=== PATIENT | female | born 1980 | race Caucasian/White ===

== ENCOUNTER 2024-05-12 04:21 | Observation (INO) | payer MEDICAID, SELFPAY ==
[2024-05-12] VITALS (11 sets, daily range): BP systolic 108–170; BP diastolic 72–129; PULSE 79–106; RESP 18–33; TEMP 36.1–36.5; O2SAT 94–100; BMI 49.9; BMI 49.7
--- NOTE | 2024-05-12 04:27 | EKG_ITS ---
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
--- NOTE | 2024-05-12 04:27 | XR_ITS ---
Examination: AP chest single view Technique one AP portable upright chest single view Exam date and time: May 12, 2024 0444 hrs. Comparison March 23, 2020 Indications: Chest pain today. Findings: Normal heart size No pneumonia or pulmonary edema The osseous structures are intact Impression: No active disease
[2024-05-12 04:48] LABS: Lactate (Lactic Acid) 2.2 mMol/L (0.4-2.0)
[2024-05-12 04:49] LABS: Base Excess 3 (-3-3); HCO3 29 mEq/L (20-26); Inspired Oxygen, FIO2 21 %; O2 Saturation 91 % (91-98); PCO2 49 mmHg (32.0-48.0); PO2 61 mmHg (83-108); pH, Arterial 7.38 (7.35-7.45)
[2024-05-12 04:52] LABS: Allen Test Performed/OK; Puncture Site Right Radial
[2024-05-12 04:54] LABS: Basophils % (Auto) 0 % (0-2.5); Eosinophils # (Auto) 0.1 Thou/mm3 (0.0-0.5); Eosinophils % (Auto) 1 % (0-10); Hematocrit 41.7 % (36.0-46.0); Hemoglobin 13.9 g/dL (12.0-16.0); Immature Granulocytes % (Auto) 0 % (0-0); Immature Granulocytes Auto 0.02 Thou/mm3 (0.00-0.00); Lymphocytes # (Auto) 3.2 Thou/mm3 (1.0-4.8); Lymphocytes % (Auto) 30 % (10-50); Mean Corpuscular HGB Conc 33.3 g/dl (31.0-37.0); Mean Corpuscular Hemoglobin 27.4 pg (25.0-35.0); Mean Corpuscular Volume 82 fL (80-100); Monocytes # (Auto) 0.6 Thou/mm3 (0.0-0.8); Monocytes % (Auto) 6 % (0-12); Neutrophils # (Auto) 6.7 Thou/mm3 (1.8-7.7); Neutrophils % (Auto) 63 % (37-80); Nucleated Red Blood Cell % 0 /100 WBC (0); Platelet Count 352 Thou/mm3 (140-440); RDW Standard Deviation 43.1 fL (36.4-46.3); Red Blood Count 5.08 Miln/mm3 (4.00-5.20); White Blood Count 10.7 Thou/mm3 (3.6-11.0)
[2024-05-12] MEDS: SODIUM CHLORIDE 0.9% 1000 ML 1,000 ML 999 ML IV ×2 (05:04→05:05)
[2024-05-12] MEDS: INSULIN HUM REGULAR 1 UNIT/0.01 ML (PER UNIT) 10 UNIT IV ×2 (05:07→05:44)
[2024-05-12 05:13] LABS: B-Type Natriuretic Peptide < 20 pg/mL (0-100)
[2024-05-12 05:25] LABS: INR 1.1 (0.9-1.3); Partial Thromboplastin Time 25.6 Seconds (22.0-36.0); Prothrombin Time 11.6 Seconds (9.0-12.2)
[2024-05-12 05:27] LABS: Alanine Aminotransferase 19 U/L (10-49); Albumin, Serum 4.6 gm/dL (3.5-5.0); Albumin/Globulin Ratio 1.1 (1.2-2.2); Alkaline Phosphatase 179 U/L (46-116); Anion Gap 9 (7-16); Aspartate Amino Transferase 13 U/L (0-34); BUN/Creatinine Ratio 12 Ratio (12-20); Bilirubin,Total 0.3 mg/dL (0.3-1.2); Blood Urea Nitrogen 16 mg/dL (9-23); Calcium 10.3 mg/dL (8.3-10.6); Calcium (Corrected) 10.3 mg/dL (8.5-10.1); Carbon Dioxide 26.4 mMol/L (20.0-31.0); Chloride 95 mMol/L (98-107); Creatinine (Component) 1.3 mg/dL (0.6-1.3); Globulin 4.2 gm/dL (2.3-3.5); Lipase 37 U/L (12-53); Magnesium 1.8 mg/dL (1.6-2.6); Osmolality,Calculated 287 (275-295); Potassium 3.8 mMol/L (3.4-5.1); Procalcitonin < 0.04 ng/ml (0.0-0.49); Sodium 130 mMol/L (136-145); Total Protein 8.8 gm/dL (5.7-8.2); Troponin I < 0.020 ng/mL (0.0-0.045); eGFR 52 See Note
[2024-05-12 05:28] LABS: Glucose 544 mg/dL (74-106)
--- NOTE | 2024-05-12 05:48 | XR_ITS ---
Examination: CT brain head without contrast. 2-D sagittal coronal reconstructions Date and time of exam:May 12, 2024 at 0635 hrs. Indications: Altered mental status anxiety today methamphetamine usage today and 2 days ago CTDI: vol (mGy):57.6 DLP: (mGycm):1137 Technique: Multiple CT axial sections of the brain have been obtained, 5 mm slice thickness. Contrast has not been administered. 2-D sagittal, coronal reconstructions have been obtained Low dose protocols were performed. One or more of the following dose reduction techniques were used; automated exposure control, adjustment of the mA and/or KV according to patient size, use of iterative reconstruction technique. Findings: No significant ventricular enlargement. Intra-axial or extra-axial hemorrhage density is not seen. No mass effect or midline shift Basal cisterns are not remarkable. Fourth ventricle is midline. Cranial vault intact. Impression: Negative for acute hemorrhage, mass effect or midline shift Advise clinical correlation follow-up accordingly
--- NOTE | 2024-05-12 05:49 | EDNOTE_ITS ---
ED General RME/HPI General Chief complaint: General Adult/Misc Complain Stated complaint: HIGH BS Time Seen by Provider: 05/12/24 04:27 Source: patient and EMS Arrival date/time: 05/12/24 04:21 Mode of arrival: EMS Limitations: no limitations RME / HPI RME / HPI narrative: DR BUSTILLO MAIN ED EVALUATION: 43-year-old female with h/o type 2 IDDM presents to the emergency department via ambulance who concerns of hyperglycemia and difficult to control blood glucose. Also c/o dizziness and feeling unwell. Related Data Home Medications ?Medication ?Instructions ?Recorded ?Confirmed atorvastatin 20 mg tablet 20 mg PO QDAY 05/12/24 05/12/24 lisinopril 20 mg tablet 20 mg PO QDAY 05/12/24 05/12/24 Previous Rx's ?Medication ?Instructions ?Recorded blood sugar diagnostic (Blood #100 ea 04/19/20 Glucose Test strips) blood-glucose meter (Blood Glucose #1 ea 04/19/20 Monitoring kit) lancets 30 gauge (BD Ultra-Fine II #100 ea 04/19/20 Lancets) pen needle, diabetic 31 gauge x #50 ea 04/19/20 1/ (Microdot Insulin Pen Needle) glucagon 3 mg/actuation nasal 3 mg intranasal QDAY PRN 05/13/24 spray (Baqsimi) hypoglycemia #2 ea insulin degludec 100 unit/mL (3 120 unit (1.2 mL) subcut HS #15 mL 05/13/24 mL) subcutaneous pen (Tresiba FlexTouch U-100 insulin) insulin lispro 100 unit/mL 40 unit (0.4 mL) subcut TID #15 mL 05/13/24 subcutaneous pen (Admelog SoloStar U-100 Insulin lispro) Allergies Allergy/AdvReac Type Severity Reaction Status Date / Time No Known Allergies Allergy Verified 04/15/20 17:43 Review of Systems Review of Systems Systems Reviewed: All systems reviewed, normal except as documented Past Medical History Past Medical History NEUROLOGIC: Negative Neurological Disorders, Transient Ischemic Attacks (TIA), Seizures or Amyotrophic Lateral Sclerosis (ALS/Gina Gehrig's) CARDIAC: Positive Edema, Cellulitis and Hypertension; Negative Cardiac Disorders, Congestive Heart Failure or Deep Vein Thrombosis RESPIRATORY: Negative Chronic Obstructive Pulmonary Disease (COPD), Asthma, Emphysema, Tuberculosis, Pulmonary Edema or Sleep Apnea GASTROINTESTINAL: Positive Gastrointestinal Disorders, Hepatitis, Pancreatitis, Gall Bladder Disease and Obesity; Negative Cirrhosis, Gastrointestinal Bleed, Colitis, Hiatal Hernia or Hemorrhoids GENITOURINARY: Negative Genitourinary Disorders, Renal Disease or Kidney Stones REPRODUCTIVE: Negative Breast Cancer, Pelvic Inflammatory Disease or Previous Pregnancies MUSCULOSKELETAL: Positive Musculoskeletal Disorders, Arthritis, Osteoporosis and Fractures; Negative Gout, Scoliosis, Fibromyalgia or Poliovirus ENDOCRINE: Positive Endocrine Disorders, Diabetes Mellitus Type 2 and Hypothyroidism; Negative Diabetes Mellitus Type 1 HEMATOLOGIC: Negative Blood Disorders, Sickle Cell Disease or Clotting Problems PSYCHO/SOCIAL: Positive Depression and Anxiety; Negative Eating Disorder OTHER HISTORY: Positive Hospitalization, Shingles and Chicken Pox; Negative Autoimmune Disease, Down Syndrome, Developmental Delay, Falls, Blood Transfusion Reaction, Anesthesia Reactions, Organ Transplant, Chemotherapy, Radiation Therapy, Hyperbaric Therapy, MRSA, Vancomycin-Resistant Enterococci, Measles, Mumps, Pertussis, Cancer or Breast Cancer Family History FAMILY HISTORY: Positive Family Respiratory Disorders; Negative Family Psychiatric Problems, Family Cardiac Disorders, Family Gastrointestinal Problems, Family Cancer, Family Surgery or Family Anesthesia Reaction Surgical History SURGICAL: Negative Cardiac Surgery, Pacemaker, Angiogram, Thyroidectomy, Ear Surgery, Abdominal Surgery or Organ Transplant Social History SMOKING STATUS: Never smoker SUBSTANCE USE: amphetamines and methamphetamine ED Exam Narrative Physical exam: GENERAL APPEARANCE: alert and oriented x 4, well-developed, well-nourished, no acute distress VITALS: All vitals were reviewed and the pulse ox is 99% on room air, which is normal according to my interpretation. HEENT: Normocephalic, atraumatic; pupils equal, round, reactive to light; EOMI; mucous membranes pink, moist; oropharynx clear NECK: Supple LUNGS: CTABL; no wheezes, no rales, no rhonchi HEART: Regular rate, regular rhythm; normal S1, S2; no murmurs ABDOMEN: non distended; normal BS; soft, no tenderness, no guarding, no rebound; no masses, no organomegaly, no hernia BACK: no CVA tenderness EXTREMITIES: atraumatic; no edema NEUROLOGIC: awake; alert and oriented x4; cranial nerves II-XII grossly intact; no focal sensory or motor deficits PSYCHIATRIC: appropriate mood and affect SKIN: warm, dry, normal color; no rashes General Limitations: Present no limitations Course Quality Measures none Orders Category Date Time Status COVID-19 Screening Questionnaire NOW Care 05/12/24 08:13 Completed 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 NOW Care 05/12/24 04:27 Completed Decision to Admit X1 Care 05/12/24 08:13 Completed EKG (ED ONLY) *Do not use* NOW Care 05/12/24 04:27 Completed Straight [In and Out Catheter] X1 Care 05/12/24 06:[address] head/brain wo con Stat Exams 05/12/24 05:48 Completed EKG (ED Only) Stat Exams 05/12/24 04:27 Draft XR chest 1V portable Stat Exams 05/12/24 04:27 Completed ABG [Arterial Blood Gas] Stat Lab 05/12/24 04:41 Completed Alcohol, Blood Medical Stat Lab 05/12/24 04:29 Completed B-Type Natriuretic Peptide Stat Lab 05/12/24 04:29 Completed BMP [Basic Metabolic Panel] Stat Lab 05/12/24 06:55 Completed Beta Hydroxybutyrate Stat Lab 05/12/24 04:29 Completed Blood Culture (Lab) Stat Lab 05/12/24 04:29 Completed CBC Stat Lab 05/12/24 04:29 Completed Comprehensive Metabolic Panel Stat Lab 05/12/24 04:29 Completed Drug Screen,Urine Stat Lab 05/12/24 05:59 Completed Lactate (Lactic Acid) Stat Lab 05/12/24 04:41 Completed Lactic Acid, 3 HR Stat Lab 05/12/24 08:10 Completed Lipase Stat Lab 05/12/24 04:29 Completed Magnesium Stat Lab 05/12/24 04:29 Completed Partial Thromboplastin Time Stat Lab 05/12/24 04:29 Completed Procalcitonin Stat Lab 05/12/24 04:29 Completed Prothrombin Time with INR Stat Lab 05/12/24 04:29 Completed Troponin I Stat Lab 05/12/24 04:29 Completed Urinalysis Stat Lab 05/12/24 05:59 Completed Urine Culture Stat Lab 05/12/24 05:59 Completed Insulin Regular Med 05/12/24 04:28 Discontinued 10 unit IV X1 ONE Insulin Regular Med 05/12/24 05:41 Discontinued 10 unit IV X1 ONE LORazepam [Ativan Inj] Med 05/12/24 06:23 Discontinued 1 mg IVP X1 ONE LORazepam [Ativan Inj] Med 05/12/24 06:19 Discontinued 2 mg .ROUTE .STK-MED ONE Ondansetron Inj [Zofran Inj] Med 05/12/24 06:20 Discontinued 4 mg .ROUTE .STK-MED ONE Ondansetron Inj [Zofran Inj] Med 05/12/24 06:23 Discontinued 4 mg IV X1 ONE Scopolamine [Transderm-Scop Patch] Med 05/12/24 06:23 Discontinued 1 mg TOP X1 ONE Sodium Chloride 0.9% 1000 ml [Ns] 1,000 ml Med 05/12/24 04:28 Discontinued IV 999 mls/hr Sodium Chloride 0.9% 1000 ml [Ns] 1,000 ml Med 05/12/24 04:28 Discontinued IV 999 mls/hr Vital Signs Vital signs: Vital Signs Temperature 97.6 F 05/12/24 04:32 Pulse Rate 87 05/12/24 04:32 Respiratory Rate 33 H 05/12/24 04:32 Blood Pressure 147/100 H 05/12/24 04:32 Pulse Oximetry (%) 94 L 05/12/24 04:32 Oxygen Delivery Method Room Air 05/12/24 04:32 [facility] Patient data External records reviewed:: [facility] previous records and EMS form Clinical information provided by:: patient and EMS Social determinants that could affect healthcare access:: none Patient has the following chronic illnesses:: Cellulitis, HTN, hepatitis, pancreatitis, ostseporosis, DM2, anxiety, depression, How is presenting disease/condition affected by chronic disease/condition?: u neffected by Evaluation data The following diagnostics were reviewed and interpreted by me:: lab results, radiology exam(s) and EKG tracing(s) Lab and/or radiology exams considered but not ordered:: None Interpretation Summary: Glucose 544 Medications Medications considered but not ordered:: None Medication administrations:: Medication Administration History Discontinued Medications Acetaminophen (Acetaminophen 325 Mg Tablet) 650 mg PO Q6H PRN PRN Reason: Fever >100.4 and pain Stop: 06/11/24 08:17 Dextrose (Dextrose 50%-Water Inj 50 Ml Syringe) 25 ml IV Q15MIN PRN PRN Reason: BG 50-70 responsive npo pt Stop: 06/11/24 08:21 Dextrose (Dextrose 50%-Water Inj 50 Ml Syringe) 50 ml IV Q15MIN PRN PRN Reason: BG <50 OR BG <70 & pt unresponsive Stop: 06/11/24 08:21 Enoxaparin Sodium (Enoxaparin Sod Inj 40 Mg/0.4 Ml Syringe) 40 mg SC QDAY PATSY Stop: 05/26/24 08:59 Last Admin: 05/13/24 08:16 Dose: 40 mg Documented By: Admin: 05/12/24 09:15 Dose: 40 mg Documented By: ANGIE Glucagon (Glucagon Inj 1 Mg Vial) 1 mg IM Q15MIN PRN PRN Reason: BG <70, and no IV access Sodium Chloride (Ns) 1,000 mls @ 999 mls/hr IV .Q1H1M ONE Stop: 05/12/24 05:28 Last Infusion: 05/12/24 06:00 Dose: Infused Documented By: Admin: 05/12/24 05:04 Dose: 999 mls/hr Documented By: ALEKSEY Sodium Chloride (Ns) 1,000 mls @ 999 mls/hr IV .Q1H1M ONE Stop: 05/12/24 05:28 Last Infusion: 05/12/24 06:00 Dose: Infused Documented By: Admin: 05/12/24 05:05 Dose: 999 mls/hr Documented By: ALEKSEY Sodium Chloride (Ns) 1,000 mls @ 100 mls/hr IV .Q10H PATSY Stop: 06/11/24 08:29 Last Admin: 05/13/24 11:38 Dose: 100 mls/hr Documented By: Infusion: 05/13/24 11:01 Dose: Infused Documented By: Admin: 05/13/24 01:01 Dose: 100 mls/hr Documented By: MARIA D Infusion: 05/12/24 19:15 Dose: Infused Documented By: MARIA D Admin: 05/12/24 09:15 Dose: 100 mls/hr Documented By: ANGIE Insulin Glargine (Insulin Glargine (Lantus) 5 Unit/0.05 Ml (Per 5 Units)) 40 unit SC BID PATSY Stop: 06/11/24 08:59 Last Admin: 05/12/24 09:15 Dose: 40 unit Documented By: ANGIE Co-signed By: MOODY Insulin Glargine (Insulin Glargine (Lantus) 5 Unit/0.05 Ml (Per 5 Units)) 80 unit SC HS PATSY Stop: 06/11/24 20:59 Last Admin: 05/12/24 20:20 Dose: 80 unit Documented By: MARIA D Co-signed By: CHIO Insulin Human Lispro (Insulin Lispro (Admelog) 1 Unit/0.01 Ml Unit) 20 unit SC AC [facility] Stop: 06/12/24 07:29 Last Admin: 05/13/24 11:14 Dose: 20 unit Documented By: MICHELLE Co-signed By: NOE Admin: 05/13/24 07:22 Dose: 20 unit Documented By: MICHELLE Co-signed By: NOE Insulin Human Lispro (Insulin Lispro (Admelog) 1 Unit/0.01 Ml Unit) 8 unit SC X1 ONE Stop: 05/13/24 13:34 Last Admin: 05/13/24 13:41 Dose: 8 unit Documented By: MICHELLE Co-signed By: Insulin Human Regular (Insulin Hum Regular 1 Unit/0.01 Ml (Per Unit)) 10 unit IV X1 ONE Stop: 05/12/24 04:29 Last Admin: 05/12/24 05:07 Dose: 10 unit Documented By: ALEKSEY Co-signed By: KERI Insulin Human Regular (Insulin Hum Regular 1 Unit/0.01 Ml (Per Unit)) 10 unit IV X1 ONE Stop: 05/12/24 05:42 Last Admin: 05/12/24 05:44 Dose: 10 unit Documented By: ALEKSEY Co-signed By: KERI Insulin Human Regular (Insulin Hum Regular 1 Unit/0.01 Ml (Per Unit)) 0 unit SC [facility]; Protocol Stop: 06/11/24 11:29 Last Admin: 05/13/24 11:13 Dose: Not Given Documented By: NOE Non-Admin Reason: md pruitt said to hold aaliyah now and gave 20 lis Admin: 05/13/24 07:23 Dose: Not Given Documented By: MICHELLE Non-Admin Reason: dr pruitt said hold for now and give lispro 20 Admin: 05/12/24 21:47 Dose: 10 unit Documented By: MARIA D Co-signed By: Admin: 05/12/24 16:39 Dose: 12 unit Documented By: ALISON Co-signed By: SIRIA Admin: 05/12/24 11:54 Dose: 12 unit Documented By: ALISON Co-signed By: NOE Lisinopril (L[facility]opril 20 Mg Tablet) [facility] Stop: 06/11/24 08:59 Last Admin: 05/13/24 08:17 Dose: 20 mg Documented By: Admin: 05/12/24 09:15 Dose: 20 mg Documented By: ANGIE Lorazepam (Lorazepam 2 Mg/Ml Vial) 1 mg IVP X1 ONE Stop: 05/12/24 06:24 Last Admin: 05/12/24 06:26 Dose: 1 mg Documented By: TC Lorazepam (Lorazepam 2 Mg/Ml Vial) Confirm Administered Dose 2 mg .ROUTE .STK- MED ONE Stop: 05/12/24 06:20 Last Admin: 05/12/24 06:27 Dose: Not Given Documented By: AC Non-Admin Reason: Override Medication Metoclopramide HCl (Metoclopramide Inj 5 Mg/Ml Vial 2 Ml) 10 mg IVP Q6H PRN; Protocol PRN Reason: NAUSEA OR VOMITING Stop: 06/11/24 08:17 Ondansetron HCl (Ondansetron Inj 2 Mg/Ml Inj 2 Ml) 4 mg IV X1 ONE; Protocol Stop: 05/12/24 06:24 Last Admin: 05/12/24 06:25 Dose: 4 mg Documented By: TC Ondansetron HCl (Ondansetron Inj 2 Mg/Ml Inj 2 Ml) Confirm Administered Dose 4 mg .ROUTE .STK-MED ONE Stop: 05/12/24 06:21 Last Admin: 05/12/24 06:45 Dose: Not Given Documented By: TC Non-Admin Reason: Duplicate Medication on eMAR Scopolamine (Scopolamine 1 Mg Tdsy) 1 mg TOP X1 ONE Stop: 05/12/24 06:24 Last Admin: 05/12/24 06:48 Dose: 1 mg Documented By: TC As above Consultations Consultation(s) initiated? (list below): No Diagnosis Differential Diagnosis ED Complaint MDM: hyperglycemia, DKA, HO hyperglyemia state Most likely diagnosis given after review of the tests above:: hyperglycemia Admission Indicated Admission indicated?: not indicated Explain why admission is indicated or not indicated:: Pending work-up results and final dispo Admission Request Was there a request for admission?: No Disposition Plan Disposition Plan: other (specify) (Sign out to oncoming day shift provider) Medical Decision Making MDM Narrative MDM Narrative: 0600: Care signed out to oncoming dayshift provider. Past medical, surgical, social and family history reviewed. Vitals and home medications reviewed. They will assume the care of the patient at this time, pending work-up results and final dispo. Scribe Attestation: I, Js Dang, am scribing for and in the presence of Dr. Bustillo. Provider Notation: Although this document has been carefully reviewed, there may still be some phonetic and other typographical errors. These errors are purely grammatical due to imperfections in the software program and should not be construed in any way to compromise the substance of the patient's medical care during this visit. Differential Diagnosis Differential Diagnosis: hyperglycemia, DKA, HO hyperglyemia state Medical Records Medical records reviewed: Yes I reviewed the patient's medical records. Lab Data Lab results reviewed: Yes I reviewed the patient's lab results. 05/13/24 05:27 05/13/24 05:27 Labs: Lab Results 05/12/24 05/12/24 05/12/24 Range/Units 04:29 04:41 05:59 WBC 10.7 (3.6-11.0) Thou/mm3 RBC 5.08 (4.00-5.20) Miln/mm3 Hgb 13.9 (12.0-16.0) g/dL Hct 41.7 (36.0-46.0) % MCV 82 (80-100) fL MCH 27.4 (25.0-35.0) pg MCHC 33.3 (31.0-37.0) g/dl RDW Std Deviation 43.1 (36.4-46.3) fL Plt Count 352 (140-440) Thou/mm3 Neut % (Auto) 63 (37-80) % Lymph % (Auto) 30 (10-50) % [place] % (Auto) 6 (0-12) % Eos % (Auto) 1 (0-10) % Baso % (Auto) 0 (0-2.5) % Neut # (Auto) 6.7 (1.8-7.7) Thou/mm3 Lymph # (Auto) 3.2 (1.0-4.8) Thou/mm3 [place] # (Auto) 0.6 (0.0-0.8) Thou/mm3 Eos # (Auto) 0.1 (0.0-0.5) Thou/mm3 Baso # (Auto) 0.0 (0.0-0.2) Thou/mm3 Immature Gran # (Auto) 0.02 H (0.00-0.00) Thou/mm3 Absolute Nucleated RBC 0.00 (0.00-0.00) Thou/mm3 Immature Gran % 0 (0-0) % Nucleated RBC % 0 (0) /100 WBC PT 11.6 (9.0-12.2) Seconds INR 1.1 (0.9-1.3) APTT 25.6 (22.0-36.0) Seconds Puncture Site Right Radial ABG pH 7.38 (7.35-7.45) ABG pCO2 49 H (32.0-48.0) mmHg ABG pO2 61 L (83-108) mmHg ABG HCO3 29 H (20-26) mEq/L ABG O2 Saturation 91 (91-98) % ABG Base Excess 3 (-3-3) FiO2 21 % Sodium 130 L (136-145) mMol/L Potassium 3.8 (3.4-5.1) mMol/L Chloride 95 L (98-107) mMol/L Carbon Dioxide 26.4 (20.0-31.0) mMol/L Anion Gap 9 (7-16) BUN 16 (9-23) mg/dL Creatinine 1.3 (0.6-1.3) mg/dL Estim Creat Clear Calc Not Performed. eGFR 52 L (60 - ) See Note BUN/Creatinine Ratio 12 (12-20) Ratio Glucose 544 H* (74-106) mg/dL Estimated Ave Glu mg/dL 286 H (80-131) mg/dL Hemoglobin A1c 11.6 H (4.8-6.0) % Hgb Calculated Osmolality 287 (275-295) Lactic Acid 2.2 H (0.4-2.0) mMol/L Calcium 10.3 (8.3-10.6) mg/dL Corrected Calcium 10.3 H (8.5-10.1) mg/dL Magnesium 1.8 (1.6-2.6) mg/dL Total Bilirubin 0.3 (0.3-1.2) mg/dL AST 13 (0-34) U/L ALT 19 (10-49) U/L Alkaline Phosphatase 179 H (46-116) U/L Troponin I < 0.020 (0.0-0.045) ng/mL B-Natriuretic Peptide < 20 (0-100) pg/mL Total Protein 8.8 H (5.7-8.2) gm/dL Albumin 4.6 (3.5-5.0) gm/dL Globulin 4.2 H (2.3-3.5) gm/dL Albumin/Globulin Ratio 1.1 L (1.2-2.2) Lipase 37 (12-53) U/L Beta-Hydroxybutyrate/Acetoacetate 0.1 (<0.6) mmol/L Procalcitonin < 0.04 (0.0-0.49) ng/ml Ur Collection Type Cancelled Clean Catch Urine Color Cancelled Lt-Yellow Urine Clarity Cancelled Clear Urine pH Cancelled 5.5 Ur Specific [place] Cancelled 1.035 Urine Protein Cancelled Negative Urine Glucose (UA) Cancelled 4+ A Urine Ketones Cancelled Negative Urine Blood Cancelled Negative Urine Nitrite Cancelled Negative Urine Bilirubin Cancelled Negative Urine Urobilinogen (Auto) Cancelled Negative Ur Leukocyte Esterase Cancelled Negative Urine RBC Cancelled 1 Urine WBC Cancelled 1 Ur Squamous Epith Cells Cancelled 1 Ur Transition Epith Cell Cancelled Ur Renal Epithelial Cell Cancelled Calcium Carbonate Cryst Cancelled Calcium Phosphate Cryst Cancelled Calcium Oxalate Crystal Cancelled Leucine Crystals Cancelled Cystine Crystals Cancelled Uric Acid Crystals Cancelled Triple Phos Crystals Cancelled Tyrosine Crystals Cancelled Amorphous Crystals Cancelled Urine Bacteria Cancelled None Cellular Casts Cancelled Epithelial Casts Cancelled Fatty Casts Cancelled Hyaline Casts Cancelled Granular Casts Cancelled Waxy Casts Cancelled Broad Casts Cancelled RBC Casts Cancelled Urine Mucus Cancelled Urine Trichomonas Cancelled Ur Yeast w Hyphae Cancelled Urine Yeast (Budding) Cancelled Urine Sperm Cancelled Ur Oval Fat Bodies Cancelled Urine Opiates Screen Negative (Negative) Urine Fentanyl Screen Negative (Negative) Ur Barbiturates Screen Negative (Negative) U Amphetamin/Meth Scrn Positive A (Negative) U Benzodiazepines Scrn Negative (Negative) U Cocaine Metab Screen Negative (Negative) U Marijuana (THC) Screen Positive A (Negative) Ethyl Alcohol < 3.0 (0-10.0) mg/dL 05/12/24 05/12/24 Range/Units 06:55 08:10 WBC (3.6-11.0) Thou/mm3 RBC (4.00-5.20) Miln/mm3 Hgb (12.0-16.0) g/dL Hct (36.0-46.0) % MCV (80-100) fL MCH (25.0-35.0) pg MCHC (31.0-37.0) g/dl RDW Std Deviation (36.4-46.3) fL Plt Count (140-440) Thou/mm3 Neut % (Auto) (37-80) % Lymph % (Auto) (10-50) % [place] % (Auto) (0-12) % Eos % (Auto) (0-10) % Baso % (Auto) (0-2.5) % Neut # (Auto) (1.8-7.7) Thou/mm3 Lymph # (Auto) (1.0-4.8) Thou/mm3 [place] # (Auto) (0.0-0.8) Thou/mm3 Eos # (Auto) (0.0-0.5) Thou/mm3 Baso # (Auto) (0.0-0.2) Thou/mm3 Immature Gran # (Auto) (0.00-0.00) Thou/mm3 Absolute Nucleated RBC (0.00-0.00) Thou/mm3 Immature Gran % (0-0) % Nucleated RBC % (0) /100 WBC PT (9.0-12.2) Seconds INR (0.9-1.3) APTT (22.0-36.0) Seconds Puncture Site ABG pH (7.35-7.45) ABG pCO2 (32.0-48.0) mmHg ABG pO2 (83-108) mmHg ABG HCO3 (20-26) mEq/L ABG O2 Saturation (91-98) % ABG Base Excess (-3-3) FiO2 % Sodium 134 L (136-145) mMol/L Potassium 3.6 (3.4-5.1) mMol/L Chloride 102 (98-107) mMol/L Carbon Dioxide 26.7 (20.0-31.0) mMol/L Anion Gap 5 L (7-16) BUN 15 (9-23) mg/dL Creatinine 1.0 (0.6-1.3) mg/dL Estim Creat Clear Calc Not Performed. eGFR > 60 (60 - ) See Note BUN/Creatinine Ratio 15 (12-20) Ratio Glucose 361 H D (74-106) mg/dL Estimated Ave Glu mg/dL (80-131) mg/dL Hemoglobin A1c (4.8-6.0) % Hgb Calculated Osmolality 284 (275-295) Lactic Acid 2.7 H (0.4-2.0) mMol/L Calcium 9.4 (8.3-10.6) mg/dL Corrected Calcium (8.5-10.1) mg/dL Magnesium (1.6-2.6) mg/dL Total Bilirubin (0.3-1.2) mg/dL AST (0-34) U/L ALT (10-49) U/L Alkaline Phosphatase (46-116) U/L Troponin I (0.0-0.045) ng/mL B-Natriuretic Peptide (0-100) pg/mL Total Protein (5.7-8.2) gm/dL Albumin (3.5-5.0) gm/dL Globulin (2.3-3.5) gm/dL Albumin/Globulin Ratio (1.2-2.2) Lipase (12-53) U/L Beta-Hydroxybutyrate/Acetoacetate (<0.6) mmol/L Procalcitonin (0.0-0.49) ng/ml Ur Collection Type Urine Color Urine Clarity Urine pH Ur Specific [place] Urine Protein Urine Glucose (UA) Urine Ketones Urine Blood Urine Nitrite Urine Bilirubin Urine Urobilinogen (Auto) Ur Leukocyte Esterase Urine RBC Urine WBC Ur Squamous Epith Cells Ur Transition Epith Cell Ur Renal Epithelial Cell Calcium Carbonate Cryst Calcium Phosphate Cryst Calcium Oxalate Crystal Leucine Crystals Cystine Crystals Uric Acid Crystals Triple Phos Crystals Tyrosine Crystals Amorphous Crystals Urine Bacteria Cellular Casts Epithelial Casts Fatty Casts Hyaline Casts Granular Casts Waxy Casts Broad Casts RBC Casts Urine Mucus Urine Trichomonas Ur Yeast w Hyphae Urine Yeast (Budding) Urine Sperm Ur Oval Fat Bodies Urine Opiates Screen (Negative) Urine Fentanyl Screen (Negative) Ur Barbiturates Screen (Negative) U Amphetamin/Meth Scrn (Negative) U Benzodiazepines Scrn (Negative) U Cocaine Metab Screen (Negative) U Marijuana (THC) Screen (Negative) Ethyl Alcohol (0-10.0) mg/dL Radiology Data Radiology results reviewed: Yes I reviewed the patient's radiology results. Discharge Plan Plan Patient Disposition: Admit Acute Care w/in Hospital Patient condition on transfer: Stable Problem List Clinical Impression: Hyperglycemia due to diabetes mellitus, Uncontrolled diabetes mellitus
--- NOTE | 2024-05-12 06:05 | PD.EDADDENDU ---
Emergency Room Addendum <Joya Boston - Last Filed: 05/12/24 07:05> Addendum Narrative: 0600: Care assumed from Dr. Castillo, the previous shift emergency physician. Past medical, surgical, social and family history reviewed. Vitals and home medications reviewed. I will assume the care of the patient at this time, pending CT head, labs, and final disposition. Please refer to the emergency department record for history and examination from initial visit.? EMS notes reviewed by me. Nursing notes reviewed by me. Vital signs reviewed by me. [facility] reviewed by me. <Gus Kapoor MD - Last Filed: 05/12/24 08:45> Addendum Narrative: I took over the care from Dr. CHOUDHARY at 6 AM on 05/12/2024, see her notes for complete H&P and ED course. This section includes all my notes and documentations, including HPI, PE, and ED course. Gus Kapoor MD I reviewed all diagnostic test results. My interpretation of the chest x-ray is no acute findings. My review of the head CT report is no acute findings. Blood tests and urine tests remarkable for hyperglycemia and elevated lactic acid and positive UDS (methamphetamine and marijuana). Treatment here included IV fluid and regular insulin 20 units IV. When patient requested help for her severe anxiety for CT scan, she was given Ativan 1 mg IV. When she requested help for severe dizziness with spinning sensation and nausea, she was given Zofran 4 mg IV and scopolamine patch. No significant improvement noted. I discussed the case with our hospitalist. About the presentation and exam and diagnostics and treatments here. And need of further care in the hospital. Will accept the patient. Gus Kapoor MD
[2024-05-12] MEDS: ONDANSETRON INJ 2 MG/ML INJ 2 ML 4 MG IV (06:25)
[2024-05-12] MEDS: LORazepam 2 MG/ML VIAL 1 MG IVP (06:26)
[2024-05-12 06:27] LABS: Collection Type, Urine Clean Catch
[2024-05-12 06:34] LABS: Beta Hydroxybutyrate 0.1 mmol/L (<0.6)
[2024-05-12] MEDS: SCOPOLAMINE 1 MG TDSY TOP (06:48)
[2024-05-12 06:49] LABS: Alcohol, Blood Medical < 3.0 mg/dL (0-10.0)
[2024-05-12 07:32] LABS: Anion Gap 5 (7-16); BUN/Creatinine Ratio 15 Ratio (12-20); Blood Urea Nitrogen 15 mg/dL (9-23); Calcium 9.4 mg/dL (8.3-10.6); Carbon Dioxide 26.7 mMol/L (20.0-31.0); Chloride 102 mMol/L (98-107); Glucose 361 mg/dL (74-106); Osmolality,Calculated 284 (275-295); Potassium 3.6 mMol/L (3.4-5.1); Sodium 134 mMol/L (136-145); eGFR > 60 See Note
--- NOTE | 2024-05-12 07:50 | PC.NURSE ---
Assumed care of patient. Patient in room on [place] connected to monitors. Patient denies pain at this time. Patient resting. Aware pending lab results.
[2024-05-12 07:51] LABS: Reflex Lactate? Y
--- NOTE | 2024-05-12 07:58 | PC.NURSE ---
Dr Butcher at bedside
[2024-05-12 08:01] LABS: Bilirubin,Urine Negative (Negative); Blood,Urine Negative (Negative); Clarity,Urine Clear (Clear/Hazy); Color,Urine Lt-Yellow (Lt Yel-Yel); Glucose, Urine 4+ (Negative); Ketones,Urine Negative (Negative); Leukocyte Esterase,Urine Negative (Negative); Nitrite,Urine Negative (Negative); PH,Urine 5.5 (5.0-7.0); Protein,Urine Negative (Neg - Trace); RBC,Urine 1 /hpf (0-3); Specific Gravity,Urine 1.035 (1.001-1.035); Squamous Epithelial Cell,Urine 1 /hpf (0-5); Urobilinogen,Urine Negative mg/dL (0.0-1.0); WBC,Urine 1 /hpf (0-5)
[2024-05-12 08:05] LABS: Amphetamine/Methamp Scrn,U Positive (Negative); Barbiturate Screen,Urine Negative (Negative); Benzodiazepines Screen,Urine Negative (Negative); Benzoylecgonine Screen, Ur Negative (Negative); Fentanyl Screen,Urine Negative (Negative); Opiate Screen,Urine Negative (Negative); THC Screen,Urine Positive (Negative)
[2024-05-12 08:14] LABS: Lactic Acid, 3 HR 2.7 mMol/L (0.4-2.0)
--- NOTE | 2024-05-12 08:24 | PD.HHHP ---
Documentation for date of: 05/12/24 HPI - Hospitalist History of Present Illness History of present illness: Patient is a 43-year-old female with past medical history of type 2 insulin-dependent diabetes mellitus, PAD status post amputation of fifth toe, BKA of LLE, charcot foot, lymphedema from morbid obesity, hypertension who presented to the ED due to feeling unwell for the past 24 hours. She reported feeling very weak and dizzy and unable to tolerate any p.o. intake. Patient states that she takes 120 units of Basaglar at home with 40 to 50 units of lispro 3 times daily before meals. She also takes pioglitazone at home. She does not take the Jardiance that she got antibiotics. She also takes lisinopril 20 mg p.o. daily patient states that she has had difficulty controlling her blood sugar at home. She denies missing any doses. She also states that she felt better at night during which she ate a brownie that had something else . The patient is quite somnolent as she received Ativan prior to going to CAT scan in the ED. CT head was unremarkable. Chest x-ray also showed no active disease.In the ED, CBC was unremarkable, but patient was found to have hyponatremia with sodium level 130, blood glucose of 544, no anion gap or metabolic acidosis. A1c was noted to be 11.6. VBG showed a pH of 7.38, pCO2 of 49 and PaO2 of 61. Beta hydroxybutyrate was 0.1, within normal limits. Patient denies any nausea, vomiting, shortness of breath, chest pain, dysuria or diarrhea. She endorses subjective fevers, but denies any chills. She denies any recent sick contacts either. Patient also denied using any other recreational drugs besides the brownie with marijuana. However, UDS shows that she is positive for methamphetamine and marijuana. Past medical history: as above Pshx: LLE BKA, amputation of fifth toe on right foot, removal of ovary due to ovarian torsion at age 6, angioplasty of RLE due to PAD Sochx: denies alcohol, drug or tobacco use Review of Systems Review of Systems Systems Reviewed: All systems reviewed, normal except as documented Neurologic Comments: dizziness Meds Home Medications and Allergies Home Medications ?Medication ?Instructions ?Recorded ?Confirmed ?Type atorvastatin 20 mg tablet 20 mg PO QDAY 05/12/24 05/12/24 History lisinopril 20 mg tablet 20 mg PO QDAY 05/12/24 05/12/24 History pioglitazone 45 mg tablet 45 mg PO DAILY 05/12/24 05/12/24 History Allergies Allergy/AdvReac Type Severity Reaction Status Date / Time No Known Allergies Allergy Verified 04/15/20 17:43 Exam Vital Signs Temp Pulse Resp BP Pulse Ox O2 Del Method 97.5 F 99 20 170/97 H 98 Room Air 05/12/24 07:32 05/12/24 07:47 05/12/24 07:32 05/12/24 07:32 05/12/24 07:32 05/12/24 07:32 Narrative Gen: No acute distress, obese, somnolent HEENT: NCAT, PERRLOU, Sclera anicteric, conjunctiva noninjected, oral mucosa moist without erythema Neck: Supple, full range of motion, no LAD CV: RRR, no murmurs, rubs or gallops, tenderness to palpation of sternum and on deep inspiration Resp: CTAB/L, no wheezing, rhonchi or rales GI: abdomen soft, bowel sounds noted, no tenderness to palpation, no guarding or rebound tenderness, no organomegaly Skin: clean, dry, no rashes, lesions or ecchymosis Ext: Fifth toe amputated on right foot with well healed diabetic foot ulcer on right plantar surface, well healed stump from Left BKA. Mild erythema and swelling in proximal right kenney 2/2 [employer] walking boot. No tenderness to palpation Neuro: A&O x3, somnolent, CN II- XII intact b/l, no focal neurological deficits Results - Hospitalist Labs Diagrams: 05/12/24 04:29 05/12/24 06:55 Labs: Short CBC 05/12/24 Range/Units 04:29 WBC 10.7 (3.6-11.0) Thou/mm3 Hgb 13.9 (12.0-16.0) g/dL Hct 41.7 (36.0-46.0) % Plt Count 352 (140-440) Thou/mm3 BMP 05/12/24 05/12/24 04:29 06:55 Sodium 130 L 134 L Potassium 3.8 3.6 Chloride 95 L 102 Carbon Dioxide 26.4 26.7 BUN 16 15 Creatinine 1.3 1.0 Glucose 544 H* 361 H D Calcium 10.3 9.4 Cardiac Enzymes 05/12/24 Range/Units 04:29 Troponin I < 0.020 (0.0-0.045) ng/mL Liver Function 05/12/24 Range/Units 04:29 Total Bilirubin 0.3 (0.3-1.2) mg/dL AST 13 (0-34) U/L ALT 19 (10-49) U/L Alkaline Phosphatase 179 H (46-116) U/L Albumin 4.6 (3.5-5.0) gm/dL Urine 05/12/24 05/12/24 Range/Units 04:29 05:59 Urine Color Cancelled Lt-Yellow Urine Clarity Cancelled Clear Urine pH Cancelled 5.5 Ur Specific [place] Cancelled 1.035 Urine Protein Cancelled Negative Urine Glucose (UA) Cancelled 4+ A ABG Interpretation ABG results: 05/12/24 04:41 ABG pH 7.38 ABG pCO2 49 H ABG pO2 61 L ABG HCO3 29 H ABG O2 Saturation 91 ABG Base Excess 3 Assessment & Plan -Hospitalist Patient Synopsis Acute toxic encephalopathy Uncontrolled Type 2 IDDM Dehydration Lactic acidosis, likely 2/2 above Dizziness 2/2 above Generalized weakness Polysubstance abuse Patient is a 43 year old female with Pmhx of uncontrolled Type 2 IDDM with A1c of 11.6, charcot foot requiring [employer] boot, PAD s/p amputation of right fifth toe and Left BKA, morbid obesity, HTN who presented to the ED with complains of dizziness and nausea that began last night. Patient states that she has had difficulty controlling her diabetes as she uses pioglitazone 45mg PO daily, basaglar 120units qHS, Lispro 40-50 units TIDAC. Patient presented with BG of 544 with some improvement following 20 units of lispro. Patient quite somnolent at time of evaluation, likely due to ativan received prior to CT head. Patient appears dehydrated as well, which is the likely cause of her lactic acidosis. Moreover, it may also be the result of her dizziness as well as substance use given that she tested positive for amphetamines and marijuana. UA negative for any acute UTI. Will admit under observation for better glucose control and IV fluid hydration. Patient is able to answer questions appropriately, despite somnolence. Will continue to monitor mental status closely as it is likely due to ativan. Will continue to follow lactic acid levels. Patient was given 40 units of lantus on admission. Will restart lantus of 80u at night, in addition to 20 units of lispro TIDAC with resistant sliding scale. Consulted dietitian for diabetic education and possible CGM Nutrition: low consistent carb DVT Prophylaxis: lovenox Code Status: full code Disposition: observe on med/surg for 24-36hrs for IV fluid hydration and blood glucose control Quality Measures Quality Measures none
--- NOTE | 2024-05-12 08:39 | PC.CC ---
Patient is a 43 year-old female who was BIBA for High BS. Lee Ann DEAN made [id number] contact with patient. ASW introduced self, role, and reason for visit. Patient appeared alert and oriented to self, location, and situation. Patient confirmed information on demographics and lives at home with her mother, Shelley Hardy . Prior to being admitted to the hospital the patient was able to ambulate independently with the use of her prosthetic leg and able to complete her own ADLs. For primary care the patient is seen by Adrian Bean and for prescription medication she uses [facility]. Patient's next of Kin is her mother, Shelley Hardy. Upond discharge the patient plans to return home. field services manager to remain available for any discharge needs.
[2024-05-12 08:59] LABS: Glucose Estimated Average 286 mg/dL (80-131); Hemoglobin A1C 11.6 % Hgb (4.8-6.0)
[2024-05-12] MEDS: ENOXAPARIN SOD INJ 40 MG/0.4 ML SYRINGE SC (09:15)
[2024-05-12] MEDS: Lisinopril 20 MG TABLET PO (09:15)
[2024-05-12] MEDS: SODIUM CHLORIDE 0.9% 1000 ML 1,000 ML 100 ML IV (09:15)
[2024-05-12] MEDS: INSULIN GLARGINE (Lantus) 5 UNIT/0.05 ML (PER 5 UNITS) 40 UNIT SC (09:15)
[2024-05-12] MEDS: INSULIN HUM REGULAR 1 UNIT/0.01 ML (PER UNIT) SC ×3 (11:54→21:47)
[2024-05-12 17:53] LABS: Lactate (Lactic Acid) 2.8 mMol/L (0.4-2.0)
[2024-05-12] MEDS: INSULIN GLARGINE (Lantus) 5 UNIT/0.05 ML (PER 5 UNITS) 80 UNIT SC (20:20)
[2024-05-12 20:51] LABS: Reflex Lactate? Y
[2024-05-12 21:21] LABS: Lactic Acid, 3 HR 1.3 mMol/L (0.4-2.0)
[2024-05-13] VITALS: BP 132/79; PULSE 98; RESP 18; TEMP 36.6; O2SAT 93
[2024-05-13] MEDS: SODIUM CHLORIDE 0.9% 1000 ML 1,000 ML 100 ML IV ×2 (01:01→11:38)
[2024-05-13 04:00] VITALS: BP 131/81; PULSE 93; RESP 18; TEMP 36.4; O2SAT 93
[2024-05-13 06:17] LABS: Basophils # (Auto) 0.1 Thou/mm3 (0.0-0.2); Basophils % (Auto) 0 % (0-2.5); Eosinophils # (Auto) 0.1 Thou/mm3 (0.0-0.5); Eosinophils % (Auto) 1 % (0-10); Hematocrit 39.1 % (36.0-46.0); Hemoglobin 12.3 g/dL (12.0-16.0); Immature Granulocytes % (Auto) 0 % (0-0); Immature Granulocytes Auto 0.04 Thou/mm3 (0.00-0.00); Lymphocytes # (Auto) 3.1 Thou/mm3 (1.0-4.8); Lymphocytes % (Auto) 25 % (10-50); Mean Corpuscular HGB Conc 31.5 g/dl (31.0-37.0); Mean Corpuscular Hemoglobin 26.9 pg (25.0-35.0); Mean Corpuscular Volume 85 fL (80-100); Monocytes # (Auto) 0.8 Thou/mm3 (0.0-0.8); Monocytes % (Auto) 6 % (0-12); Neutrophils # (Auto) 8.5 Thou/mm3 (1.8-7.7); Neutrophils % (Auto) 68 % (37-80); Nucleated Red Blood Cell % 0 /100 WBC (0); Platelet Count 289 Thou/mm3 (140-440); RDW Standard Deviation 45.4 fL (36.4-46.3); Red Blood Count 4.58 Miln/mm3 (4.00-5.20); White Blood Count 12.5 Thou/mm3 (3.6-11.0)
[2024-05-13 06:51] LABS: Alanine Aminotransferase 15 U/L (10-49); Albumin, Serum 3.7 gm/dL (3.5-5.0); Albumin/Globulin Ratio 1.1 (1.2-2.2); Alkaline Phosphatase 125 U/L (46-116); Anion Gap 5 (7-16); Aspartate Amino Transferase 15 U/L (0-34); BUN/Creatinine Ratio 19 Ratio (12-20); Bilirubin,Total 0.3 mg/dL (0.3-1.2); Blood Urea Nitrogen 15 mg/dL (9-23); Calcium 8.9 mg/dL (8.3-10.6); Calcium (Corrected) 9.1 mg/dL (8.5-10.1); Carbon Dioxide 25.6 mMol/L (20.0-31.0); Chloride 104 mMol/L (98-107); Creatinine (Component) 0.8 mg/dL (0.6-1.3); Estimated Creatinine Clearance 128.6 mL/min (>60); Globulin 3.5 gm/dL (2.3-3.5); Glucose 254 mg/dL (74-106); Osmolality,Calculated 279 (275-295); Potassium 3.9 mMol/L (3.4-5.1); Sodium 135 mMol/L (136-145); Total Protein 7.2 gm/dL (5.7-8.2); eGFR > 60 See Note
[2024-05-13] MEDS: INSULIN LISPRO (AdmeLOG) 1 UNIT/0.01 ML UNIT 20 UNIT SC ×2 (07:22→11:14)
[2024-05-13 08:00] VITALS: BP 154/91; PULSE 91; RESP 19; TEMP 36.4; O2SAT 95
[2024-05-13] MEDS: ENOXAPARIN SOD INJ 40 MG/0.4 ML SYRINGE SC (08:16)
[2024-05-13 08:17] VITALS: BP 154/91; PULSE 91
[2024-05-13] MEDS: Lisinopril 20 MG TABLET PO (08:17)
[2024-05-13 12:00] VITALS: BP 147/78; PULSE 86; RESP 19; TEMP 36; O2SAT 98
[2024-05-13] MEDS: INSULIN LISPRO (AdmeLOG) 1 UNIT/0.01 ML UNIT 8 UNIT SC (13:41)
--- NOTE | 2024-05-13 15:49 | PC.SS ---
Nati Mccall is 43 year old female admitted to [facility] for hyperglycemia. SS conducted bedside contact with the patient to complete initial assessment and to discuss discharge planning. SW used all precautionary measures to complete initial. Role and reason for the contact was explained to Nati. Pt is alert and oriented times 4. Nati confirmed demographic information. Pt resides at home with mother. Patient identified Shelley Hardy, mother, as her surrogate decision maker. Pt states prior to hospitalization she needs assistance for all ADLs by pt mother. Pt does not use O2. Pt does not have any other DME. Pt confirmed history of mental health of depression and was prescribed Prozac. Pt states that she has not seen mental health for quite some time and knows how to get assistance. Pt stated she recently used meth about 3-4 days ago and digested brownies laced with marijuana. Pt does not want assistance with AA/NA or other sources. SS provided community resources. Pts PCP is Adrian Bean last seen last week and Dr. Bean set pt up to see dietitian on 05/25/2024. Advance life directive discussed pt was receptive and paperwork provided. [facility] [address]. Discharge options discussed and the pt return home. HH was discussed and if needed no preference on provider. Family will provide transportation upon DC. No further intervention required at this time, social services counselor would be available to address any further concerns. DC Plan: Home Address: Confirmed on face sheet Contact: Shelley Hardy, mother, PCP: Adrian Bean
--- NOTE | 2024-05-13 18:52 | ESDS_ITS ---
<Statement entered by Anny Butcher DO - 05/14/24 13:58> I, Anny Butcher DO, attest that I was physically present for the sales portions of the service and evaluated the patient with the resident and I reviewed and discussed the case with the resident and agree with the resident's findings and plans of care as documented above <Statement entered by Garret Sanabria MD - 05/13/24 19:35> I saw and examined the patient, and I agree with current management stated by Dr Damon MD,PGY1. Plan of care was discussed with the attending physician and resident physician. Disclaimer: Despite multiple revisions, due to the dictation software being used, the document bellow may not be free of grammatical errors including phonetic/typographic errors. However, this does not deter from our commitment to providing health care in the patient's best interest in mind. Dr. Elly MD, PGY 2 Planned Discharge Date 05/13/24 DS: Providers Provider Date of admission: 05/12/24 08:18 Primary care physician: Adrian Bean PA-C Admitting Provider: Anny Butcher DO Attending Provider on Admission: Anny Butcher DO Consults: 05/12/24 14:57 Referral Registered Dietitian Routine Comment: kenny sarkar please 05/13/24 09:13 Referral Registered Dietitian Routine Comment: 05/13/24 09:44 Referral Physical Therapy Routine Comment: Physician Instructions: Attending Provider on DC: Hiral Jose MD Discharging Provider: Hiral Jose MD DS: Diagnosis Problem List Completed Was Problem List Reviewed/Reconciled?: Yes Hospital Course Hospital Course Hospital course: Acute toxic encephalopathy Uncontrolled Type 2 IDDM Dehydration Lactic acidosis, likely 2/2 above Dizziness 2/2 above Generalized weakness Polysubstance abuse Patient is a 43-year-old female with a past medical history of diabetes mellitus type 2 insulin-dependent using 120 units of long-acting Basaglar, hypertension, PAD, 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 [place] was admitted for acute toxic encephalopathy and hyperglycemia. ER Course: Vitals: 97.6, HR 87, RR 33, BP 147/100, SpO2 94%, RA WBC 10.7 (05/12/2024) CMP: Na 130, K 3.8, Chloride 95, HCO3 26.4, Anion gap 9, BUN 16, Cr 1.3 GFR 52 Glucose 544, Lactic Acid 2.2 BNP <20 UA: Glucose 4+, UTox Positive TCH and Positive Amphetamine/Meth Hospital Course: Admitted on floors for observation, for hyperglycemic episodes with glucose reading of 544 with an A1c of 11.6 and acute encephalopathy. Patient started on Lantus 80 HS and 20 units of Lispro with meal, in addition sliding scale. Diabetic Education and Director Business Intelligence consulted. Prior to discharge 20 units of Lispro given during breakfast plus an additional 8 units of sliding scale as Fasting glucose of 254-->down to 223 prior to discharge. Patient will be discharged on Tresiba (Degludec), long acting insulin that provides about 40 hours of insulin coverage. Care Plan Goals: Continue taking all home medications as prescribed Start taking Tresiba 120 units at night Take lispro 40 units 3 times daily as you are taking at home Take Baqsimi 3 mg spray if blood sugars drop below 60 mg/dL Take all home medication as prescribed In case of worsening signs symptoms come back to the ED or call 911 Follow-up with PCP as outpatient within a week If you do not have a PCP, you may follow up at the [facility] [address], [place] [address] P [phone] Disposition: Home Time Spent with Patient Time attestation: Total time spent providing and/or coordinating discharge services:greater than >35 minutes Exam Vital Signs Temp Pulse Resp BP Pulse Ox O2 Del Method 96.8 F 86 19 147/78 H 98 Room Air 05/13/24 12:05/13/24 12:05/13/24 12:05/13/24 12:05/13/24 12:05/13/24 12:00 Narrative Exam General Appearance: Alert & Oriented X3, well-nourished female who is lying in bed in no acute distress. Right lower extremity statis dermatitis with lymphedema. HEENT: Skull symmetrical and atraumatic. Conjunctivae pink and moist. Pupils equal, round, reactive to light and accommodation (PERRL). External ear without lesion or discharge. Straight, nares patient, mucosa pink, no discharge. Cardio: Normal Rate and Rhythm with S1 and S2 difficult to discern secondary to body habitus. No murmurs or extra heart sounds auscultated. No bruits on carotid auscultation. No peripheral edema or cyanosis. Lungs: Symmetric with good expansion. Chest and back non-tender. Breath sounds vesicular without crackles, wheezing or rhonchi Abdomen: Non-tender, Non-distended, Normal Reactive Bowel Sounds Neuro: Alert, cooperative, oriented to person, place, and time. Speech clear. CN grossly intact. Upper motor strength 5/5 and Lower motor strength 5/5. Sensation intact. Discharge Plan Plan Patient Disposition: HOME (Self Care) Patient condition on transfer: Stable Care Plan Goals: Continue taking all home medications as prescribed Start taking Tresiba 120 units at night Take lispro 40 units 3 times daily as you are taking at home Take Baqsimi 3 mg spray if blood sugars drop below 60 mg/dL Take all home medication as prescribed In case of worsening signs symptoms come back to the ED or call 911 Follow-up with PCP as outpatient within a week If you do not have a PCP, you may follow up at the [facility] [address], [place] [address] P [phone] Prescriptions/Referrals Prescriptions/Med Rec: New Baqsimi 3 mg/actuation spray,non-aerosol 3 mg intranasal QDAY PRN (Reason: hypoglycemia) Qty: 2 0RF insulin degludec [Tresiba FlexTouch U-100] 100 unit/mL (3 mL) insulin pen 120 unit subcut HS Qty: 15 3RF insulin lispro [Admelog SoloStar U-100 Insulin] 100 unit/mL insulin pen 40 unit subcut TID Qty: 15 2RF Continued (DME) blood-glucose meter [Blood Glucose Monitoring] Kit See Rx Instructions .ROUTE .MEDSUPPLY Qty: 1 0RF Rx Instructions: As directed check BS 3 times a day (DME) Blood Glucose Test Strip See Rx Instructions .ROUTE .MEDSUPPLY Qty: 100 0RF Rx Instructions: As directed check BS 3 times a day (DME) lancets [BD Ultra-Fine II Lancets] 30 gauge misc See Rx Instructions .ROUTE .MEDSUPPLY Qty: 100 0RF Rx Instructions: As directed check BS 3 times a day (DME) pen needle, diabetic [Microdot Insulin Pen Needle] 31 gauge x 1/4 needle See Rx Instructions .ROUTE .MEDSUPPLY Qty: 50 0RF Rx Instructions: As directed atorvastatin 20 mg tablet 20 mg PO QDAY Patient Comments: TAKE 1 TABLET BY MOUTH EVERY DAY lisinopril 20 mg tablet 20 mg PO QDAY Discontinued insulin glargine [Basaglar KwikPen U-100 Insulin] 100 unit/mL (3 mL) insulin pen 15 unit subcut QAM Qty: 15 0RF pioglitazone 45 mg tablet 45 mg PO DAILY Referrals: Adrian Bean PA-C [Primary Care Provider] - Patient/Caregiver Discharge Instructions Education Materials: Diabetes Shopping Preparing Meals, 5 Steps for Eating Healthier, Addiction: Getting Help Print Language: Wolof Stand Alone Forms: Jacqueline Award Info., Patient Portal Info Letter, Work/Release Restrictions Discharge Order Discharge Orders: Discharge (Routine); Ordered 05/13/24 Ordered By: Garret Sanabria Quality Discharge Quality Measures VTE prophylaxis
== END 2024-05-13 14:19 | disposition home or self-care (01) ==
LOC: SERX 08:14 → S3SX 11:36 → SERHOLD 05-15 09:10
PROVIDERS: Emergency Medicine; Admitting Provider Internal Medicine; Emergency Provider Emergency Medicine; PCP Family Medicine; Visit Provider Internal Medicine
DX: E11.65 Type 2 diabetes mellitus with hyperglycemia (principal); I11.0 Hypertensive heart disease with heart failure; M19.90 Unspecified osteoarthritis, unspecified site; M41.9 Scoliosis, unspecified; M81.0 Age-related osteoporosis without current pathological fracture; Q90.9 Down syndrome, unspecified; F19.10 Other psychoactive substance abuse, uncomplicated; E87.20 Acidosis, unspecified; E87.1 Hypo-osmolality and hyponatremia; E86.0 Dehydration; E66.01 Morbid (severe) obesity due to excess calories; E03.9 Hypothyroidism, unspecified; G93.40 Encephalopathy, unspecified; Z68.42 Body mass index [BMI] 45.0-49.9, adult; Z01.810 Encounter for preprocedural cardiovascular examination; Z89.512 Acquired absence of left leg below knee; Z89.421 Acquired absence of other right toe(s)
CPT/HCPCS: 51701; 36415; 36600; 70450; 71045; 80048; 80053; 80307; 80320; 81001; 82010; 82803; 83036; 83605; 83690; 83735; 83880; 84145; 84484; 85025; 85610; 85730; 87040; 87077; 87086; 87186; 93005; 96360; 96361; 96372; 96374; 96375; 99285; G0378; J1650; J1815; J2060; J2405; J7030; A9270; G0480

== ENCOUNTER 2024-06-21 05:04 | Inpatient (IN) | payer MEDICAID, SELFPAY ==
[2024-06-21] VITALS (24 sets, daily range): BP systolic 106–168; BP diastolic 57–132; PULSE 103–130; RESP 18–38; TEMP 36–37.6; O2SAT 89–100; BMI 48.0
--- NOTE | 2024-06-21 05:21 | PD.EDRME ---
Rapid Medical Screening Exam RME Arrival date/time: 06/21/24 05:04 43-year-old morbidly obese female with past medical history of diabetes, hyperlipidemia, and hypertension presents emergency department complaining of cough and shortness of breath. Chief Complaint: Flu Like Symptoms Time Seen by Provider: 06/21/24 05:13 Vital signs: Vital Signs Temperature 97.7 F 06/21/24 05:08 Pulse Rate 117 H 06/21/24 05:08 Respiratory Rate 18 06/21/24 05:08 Blood Pressure 168/95 H 06/21/24 05:08 Pulse Oximetry (%) 92 L 06/21/24 05:08 Oxygen Delivery Method Room Air 06/21/24 05:08 Vital signs reviewed by provider: Yes
--- NOTE | 2024-06-21 05:22 | XR_ITS ---
Examination: AP portable semiupright chest single view Technique one AP portable semiupright chest single view Exam date and time: June 21, 2024 0551 hours Comparison 12/11/2023 INDICATIONS: Chest pain today. FINDINGS: Significant pneumonia right base Normal heart size Mild pneumonia left base Reduced inspiratory effort IMPRESSION: Significant pneumonia right base
--- NOTE | 2024-06-21 05:44 | PC.NURSE ---
Pt to room 9 at this time; assumed care of pt.
--- NOTE | 2024-06-21 05:54 | PC.NURSE ---
Pt to XRAY via greg.
--- NOTE | 2024-06-21 06:33 | EDNOTE_ITS ---
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 Patient seems with daughter at 3 days ago when she had mild chest discomfort in the center with 4/10 pain which was dull and achy and radiating to the back. Patient's pain improved for a few hours, but was followed up by severe productive cough, shortness of breath and subjective fevers at home which started about 48 hours ago. Since then patient has experienced intermittent episodes of mild chest pain as well, which is mostly on coughing. Patient is producing yellow phlegm, and has severe body aches especially in the neck shoulders and her lower back. She used methamphetamine 2 days ago, and consistently uses marijuana 2?3 times daily. She states she needs meth and THC for her chronic pain. Patient takes insulin at home for diabetes, and endorses compliance. Other than her flulike symptoms of cough congestion, fevers and chest pain on coughing, radiating to the back, she denies any other symptoms at this time. 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 Related Data Home Medications ?Medication ?Instructions ?Recorded ?Confirmed atorvastatin 20 mg tablet 20 mg PO QDAY 05/12/24 05/12/24 lisinopril 20 mg tablet 20 mg PO QDAY 05/12/24 05/12/24 Previous Rx's ?Medication ?Instructions ?Recorded blood sugar diagnostic (Blood #100 ea 04/19/20 Glucose Test strips) blood-glucose meter (Blood Glucose #1 ea 04/19/20 Monitoring kit) lancets 30 gauge (BD Ultra-Fine II #100 ea 04/19/20 Lancets) pen needle, diabetic 31 gauge x #50 ea 04/19/2006/03 (Microdot Insulin Pen Needle) glucagon 3 mg/actuation nasal 3 mg intranasal QDAY PRN 05/13/24 spray (Baqsimi) hypoglycemia #2 ea insulin degludec 100 unit/mL (3 120 unit (1.2 mL) subcut HS #15 mL 05/13/24 mL) subcutaneous pen (Tresiba FlexTouch U-100 insulin) insulin lispro 100 unit/mL 40 unit (0.4 mL) subcut TID #15 mL 05/13/24 subcutaneous pen (Admelog SoloStar U-100 Insulin lispro) Allergies Allergy/AdvReac Type Severity Reaction Status Date / Time No Known Allergies Allergy Verified 04/15/20 17:43 Review of Systems Review of Systems Narrative Review of Systems: GENERAL: subjective fevers/chills, no diaphoresis. HEENT: Denies headache or visual/hearing changes. Denies nasal discharge. NEURO: Denies unusual weakness or difficulty speaking. CARDIO: Denies chest pain or palpitations. PULM: endorses SOB, productive coughing, and wheezing. GI: Denies abdominal pain, N/V/C/D. Reports having BMs URO: Denies burning/itching/pain/urinary changes. 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 MSK/EXT/SKIN: Denies joint/skeletal/muscle pain, issues/changes in upper or lower extremities, itchiness, or superficial pain. PSYCH: Cooperative, pleasant mood & affect. The rest of the review of systems is otherwise negative. ED Exam Narrative Physical exam: Constitutional Alert, oriented x4, morbidly obese HEENT Vision grossly intact. Patent nares. Trachea midline. Respiratory Chest normal on inspection and diffuse wheezing on auscultation bilaterally. Cardiovascular S1 and S2 audible, RRR. No murmurs or carotid bruit. No gross JVD. Abdominal Soft and non tender to palpation in all quadrants. BS + Genitourinary No bladder tenderness, no flank pain. Normal to palpation. Musculoskeletal Extremities tone within normal limits. LT LE prosthetic limb; RT LE brace. Neurological CN II - XII grossly intact. Extremity motor and sensation grossly intact. Skin Warm, dry and intact. No apparent lesions. Psychiatric Patient is cooperative, agitated and uncomfortable Course Course Course Narrative: EKG: Sinus tachycardia, HR [address] changes. Labs: WBC 26 , LA 3 , Procal 8.06 BS 345 Mg 1.1 T.bili 1.6 CXR : RT LL consolidation 10:35 am SEPSIS ALERT called Quality Measures Possible source: pulmonary Blood cultures ordered: yes Antibiotic ordered: Yes Pertinent labs: 06/21/24 08:27 Lactic Acid 3.0 H mMol/L (0.4-2.0) Procalcitonin 8.06 H ng/ml (0.0-0.49) sepsis Orders Category Date Time Status Bedside Blood Glucose NOW Care 06/21/24 08:14 Active Bedside COVID-19 Antigen Test NOW Care 06/21/24 05:22 Active Bedside Influenza A&B Antigen Test NOW Care 06/21/24 05:22 Completed Bedside Influenza A&B Antigen Test NOW Care 06/21/24 06:[address] Screening NOW Care 06/21/24 07:06 Active Monitoring Tech Q4H START 00 Care 06/21/24 08:14 Active EKG (ED ONLY) *Do not use* NOW Care 06/21/24 05:22 Completed Baker [Urinary Catheter] QS Care 06/21/24 08:15 Active Insert IV NOW Care 06/21/24 08:14 Active Strict Intake and Output Routine Care 06/21/24 08:[address] angio chest Stat Exams 06/21/24 07:06 Ordered EKG (ED Only) Stat Exams 06/21/24 05:22 Ordered XR chest 1V portable Stat Exams 06/21/24 05:22 Completed B-Type Natriuretic Peptide Stat Lab 06/21/24 06:28 Completed Beta HCG,Quantitative Stat Lab 06/21/24 10:29 Ordered Blood Culture (Lab) Stat Lab 06/21/24 08:20 Received CBC Stat Lab 06/21/24 06:28 Completed Comprehensive Metabolic Panel Stat Lab 06/21/24 06:28 Completed Drug Screen,Urine Stat Lab 06/21/24 08:49 Completed HCG Qualitative,Urine Stat Lab 06/21/24 10:29 Ordered Lactate (Lactic Acid) Stat Lab 06/21/24 08:27 Results Lactate (Lactic Acid) Stat Lab 06/21/24 12:30 Ordered Magnesium Stat Lab 06/21/24 06:28 Completed Partial Thromboplastin Time Stat Lab 06/21/24 06:28 Completed Procalcitonin Stat Lab 06/21/24 08:27 Completed Prothrombin Time with INR Stat Lab 06/21/24 06:28 Completed Troponin I Stat Lab 06/21/24 06:28 Completed Urinalysis Stat Lab 06/21/24 08:49 Received Urine Culture Stat Lab 06/21/24 08:49 Received Venous Blood Gas Stat Lab 06/21/24 08:27 Completed Acetaminophen Tab [Tylenol ES Tab] Med 06/21/24 09:27 Discontinued 1,000 mg PO X1 ONE Magnesium Sulfate 4 GM Ivpb [Magnesium Sulfate Ivpb] Med 06/21/24 08:21 Active 4 gm in 50 ml IV X1 Morphine Inj Med 06/21/24 08:23 Discontinued 4 mg IVP X1 ONE Ondansetron Inj [Zofran Inj] Med 06/21/24 08:23 Discontinued 4 mg IV X1 ONE Piper/Tazo 3.375 gm [Zosyn] 50 ml Med 06/21/24 08:18 Discontinued IV X1 Sodium Chloride 0.9% 1000 ml [Ns] 1,000 ml Med 06/21/24 08:22 Discontinued IV 999 mls/hr Sodium Chloride 0.9% 1000 ml [Ns] 1,000 ml Med 06/21/24 09:24 Discontinued IV 999 mls/hr Vancomycin Inj 2,000 mg Med 06/21/24 08:20 Active Sodium Chloride 0.9% 500 ml [Ns] 500 ml IV X1 guaiFENesin/DM [Mucinex DM] Med 06/21/24 07:07 Discontinued 1 each PO X1 ONE EKG (RT) Stat RT 06/21/24 08:14 Ordered Oxygen Delivery NOW RT 06/21/24 08:14 Active Reevaluation(s) Reevaluation #1: 10:20 am: sepsis alert requested NS bolus x2 ordered, repeat LA check in 4 hours Vanc x1 + Zosyn x1 ordered Vital Signs Vital signs: Vital Signs Temperature 97.7 F 06/21/24 05:08 Pulse Rate 117 H 06/21/24 05:08 Respiratory Rate 18 06/21/24 05:08 Blood Pressure 168/95 H 06/21/24 05:08 Pulse Oximetry (%) 92 L 06/21/24 05:08 Oxygen Delivery Method Room Air 06/21/24 05:08 [facility] Patient data External records reviewed:: [facility] previous records Clinical information provided by:: patient Social determinants that could affect healthcare access:: substance use Patient has the following chronic illnesses:: type 2 insulin-dependent diabetes mellitus, peripheral neuropathy s/p amputation of fifth toe, 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, chronic lymphedema, polysubstance use disorder and morbid obesity, hypertension How is presenting disease/condition affected by chronic disease/condition?: e xacerbated by Evaluation data The following diagnostics were reviewed and interpreted by me:: lab results, radiology exam(s) and EKG tracing(s) Lab and/or radiology exams considered but not ordered:: CT abdo Interpretation Summary: Sepsis 2/2 RT LL pneumonia Pending CTA chest to r/o PE Medications Medications considered but not ordered:: Doxycycline Medication administrations:: Medication Administration History Vancomycin HCl 2,000 mg/ (Sodium Chloride) 500 mls @ 150 mls/hr IV X1 ONE Stop: 06/21/24 11:39 Magnesium Sulfate (Magnesium Sulfate Ivpb) 4 gm in 50 mls @ 12.5 mls/hr IV X1 ONE Stop: 06/21/24 12:20 Discontinued Medications Acetaminophen (Acetaminophen 500 Mg Tablet) 1,000 mg PO X1 ONE Stop: 06/21/24 09:28 Last Admin: 06/21/24 10:35 Dose: 1,000 mg Documented By: STEVENSON Guaifenesin/Dextromethorphan (Guaifenesin/Dm Tablet) 1 each PO X1 ONE Stop: 06/21/24 07:08 Last Admin: 06/21/24 10:36 Dose: 1 each Documented By: STEVENSON Piperacillin/Tazobactam/Dextrose (Zosyn) 50 mls @ 100 mls/hr IV X1 ONE Stop: 06/21/24 08:47 Last Admin: 06/21/24 10:37 Dose: 100 mls/hr Documented By: TM Sodium Chloride (Ns) 1,000 mls @ 999 mls/hr IV .Q1H1M ONE Stop: 06/21/24 09:22 Last Admin: 06/21/24 10:37 Dose: 999 mls/hr Documented By: TM Sodium Chloride (Ns) 1,000 mls @ 999 mls/hr IV .Q1H1M ONE Stop: 06/21/24 10:24 Morphine Sulfate (Morphine Sulf Inj 10 Mg/Ml Vial) 4 mg IVP X1 ONE Stop: 06/21/24 08:24 Last Admin: 06/21/24 10:36 Dose: 4 mg Documented By: TM Ondansetron HCl (Ondansetron Inj 2 Mg/Ml Inj 2 Ml) 4 mg IV X1 ONE; Protocol Stop: 06/21/24 08:24 Last Admin: 06/21/24 09:25 Dose: 4 mg Documented By: TM Comments: NO IV ACCESS UNTIL NOW Sepsis alert Consultations Consultation(s) initiated? (list below): No Diagnosis Differential Diagnosis ED Complaint MDM: PE Most likely diagnosis given after review of the tests above:: Severe sepsis secondary to RLL pneumonia Admission Indicated Admission indicated?: indicated Explain why admission is indicated or not indicated:: Severe sepsis 2/2 RLL penumonia Admission Request Was there a request for admission?: Yes Admission Attestation Admission request attestation: Discussed case with Dr Sanabria from Hospitalist service regarding admission. Discussed patients ED course, exam findings, labs, and radiology results. The Hospitalist team [agrees] to accept the patient for admission. Disposition Plan Disposition Plan: Admit Medical Decision Making MDM Narrative MDM Narrative: Patient is a 43 year old female who presented with flu-like symptoms - SOB, productive cough and subjective fevers. she was found to be tachycardiac and tachypnaeic in the ER with a WBC of 26 and LA 3. Sepsis alert called and patient started on Vancomycin and Zosyn. She also received NS bolus 1L x2. Pending: Influenza testing and CTA chest Plan: Patient to be admitted for sepsis 2/2 PNA Differential Diagnosis Differential Diagnosis: PE Lab Data 06/21/24 06:28 06/21/24 06:28 Labs: Lab Results 06/21/24 06/21/24 06/21/24 Range/Units 06:28 08:27 08:49 WBC 26.0 H (3.6-11.0) Thou/mm3 RBC 4.77 (4.00-5.20) Miln/mm3 Hgb 13.0 (12.0-16.0) g/dL Hct 39.3 (36.0-46.0) % MCV 82 (80-100) fL MCH 27.3 (25.0-35.0) pg MCHC 33.1 (31.0-37.0) g/dl RDW Std Deviation 44.8 (36.4-46.3) fL Plt Count 273 (140-440) Thou/mm3 Neut % (Auto) 87 H (37-80) % Lymph % (Auto) 7 L (10-50) % Desha % (Auto) 4 (0-12) % Eos % (Auto) 0 (0-10) % Baso % (Auto) 0 (0-2.5) % Neut # (Auto) 22.6 H (1.8-7.7) Thou/mm3 Lymph # (Auto) 1.8 (1.0-4.8) Thou/mm3 Desha # (Auto) 1.1 H (0.0-0.8) Thou/mm3 Eos # (Auto) 0.0 (0.0-0.5) Thou/mm3 Baso # (Auto) 0.1 (0.0-0.2) Thou/mm3 Immature Gran # (Auto) 0.35 H (0.00-0.00) Thou/mm3 Absolute Nucleated RBC 0.00 (0.00-0.00) Thou/mm3 Immature Gran % 1 H (0-0) % Nucleated RBC % 0 (0) /100 WBC PT 13.9 H (9.0-12.2) Seconds INR 1.3 (0.9-1.3) APTT 29.3 (22.0-36.0) Seconds VBG pH 7.39 (7.33-7.66) VBG pCO2 47 (36-56) mmHg VBG pO2 19 (15-58) mmHg VBG O2 Sat (Adarsh) 28 L (96-97) % VBG Base Excess 3 (-3-3) Sodium 131 L (136-145) mMol/L Potassium 3.6 (3.4-5.1) mMol/L Chloride 95 L (98-107) mMol/L Carbon Dioxide 28.0 (20.0-31.0) mMol/L Anion Gap 8 (7-16) BUN 22 (9-23) mg/dL Creatinine 1.3 (0.6-1.3) mg/dL Estim Creat Clear Calc 72.1 (>60) mL/min eGFR 52 L (60 - ) See Note BUN/Creatinine Ratio 17 (12-20) Ratio Glucose 345 H (74-106) mg/dL Calculated Osmolality 279 (275-295) Lactic Acid 3.0 H (0.4-2.0) mMol/L Calcium 9.9 (8.3-10.6) mg/dL Corrected Calcium 9.9 (8.5-10.1) mg/dL Magnesium 1.1 L (1.6-2.6) mg/dL Total Bilirubin 1.6 H (0.3-1.2) mg/dL AST 20 (0-34) U/L ALT 18 (10-49) U/L Alkaline Phosphatase 116 (46-116) U/L Troponin I < 0.020 (0.0-0.045) ng/mL B-Natriuretic Peptide 44 (0-100) pg/mL Total Protein 8.1 (5.7-8.2) gm/dL Albumin 4.0 (3.5-5.0) gm/dL Globulin 4.1 H (2.3-3.5) gm/dL Albumin/Globulin Ratio 1.0 L (1.2-2.2) Procalcitonin 8.06 H (0.0-0.49) ng/ml Urine Opiates Screen Negative (Negative) Urine Fentanyl Screen Negative (Negative) Ur Barbiturates Screen Negative (Negative) U Amphetamin/Meth Scrn Positive A (Negative) U Benzodiazepines Scrn Negative (Negative) U Cocaine Metab Screen Negative (Negative) U Marijuana (THC) Screen Positive A (Negative) Discharge Plan Plan Patient Disposition: Admit Acute Care w/in Hospital Patient condition on transfer: Stable Prescriptions/Referrals Prescriptions/Med Rec: No Action (DME) blood-glucose meter [Blood Glucose Monitoring] Kit See Rx Instructions .ROUTE .MEDSUPPLY Qty: 1 0RF Rx Instructions: As directed check BS 3 times a day (DME) Blood Glucose Test Strip See Rx Instructions .ROUTE .MEDSUPPLY Qty: 100 0RF Rx Instructions: As directed check BS 3 times a day (DME) lancets [BD Ultra-Fine II Lancets] 30 gauge misc See Rx Instructions .ROUTE .MEDSUPPLY Qty: 100 0RF Rx Instructions: As directed check BS 3 times a day (DME) pen needle, diabetic [Microdot Insulin Pen Needle] 31 gauge x 1/4 needle See Rx Instructions .ROUTE .MEDSUPPLY Qty: 50 0RF Rx Instructions: As directed atorvastatin 20 mg tablet 20 mg PO QDAY Patient Comments: TAKE 1 TABLET BY MOUTH EVERY DAY lisinopril 20 mg tablet 20 mg PO QDAY Baqsimi 3 mg/actuation spray,non-aerosol 3 mg intranasal QDAY PRN (Reason: hypoglycemia) Qty: 2 0RF insulin degludec [Tresiba FlexTouch U-100] 100 unit/mL (3 mL) insulin pen 120 unit subcut HS Qty: 15 3RF insulin lispro [Admelog SoloStar U-100 Insulin] 100 unit/mL insulin pen 40 unit subcut TID Qty: 15 2RF Referrals: Adrian Bean PA-C [Primary Care Provider] - In 1 week Problem List Clinical Impression: Sepsis Patient/Caregiver Discharge Instructions Print Language: Japanese Stand Alone Forms: Jacqueline Award Info., Patient Portal Info Letter
[2024-06-21 06:56] LABS: Basophils # (Auto) 0.1 Thou/mm3 (0.0-0.2); Basophils % (Auto) 0 % (0-2.5); Eosinophils % (Auto) 0 % (0-10); Hematocrit 39.3 % (36.0-46.0); Immature Granulocytes % (Auto) 1 % (0-0); Immature Granulocytes Auto 0.35 Thou/mm3 (0.00-0.00); Lymphocytes # (Auto) 1.8 Thou/mm3 (1.0-4.8); Lymphocytes % (Auto) 7 % (10-50); Mean Corpuscular HGB Conc 33.1 g/dl (31.0-37.0); Mean Corpuscular Hemoglobin 27.3 pg (25.0-35.0); Mean Corpuscular Volume 82 fL (80-100); Monocytes # (Auto) 1.1 Thou/mm3 (0.0-0.8); Monocytes % (Auto) 4 % (0-12); Neutrophils # (Auto) 22.6 Thou/mm3 (1.8-7.7); Neutrophils % (Auto) 87 % (37-80); Nucleated Red Blood Cell % 0 /100 WBC (0); Platelet Count 273 Thou/mm3 (140-440); RDW Standard Deviation 44.8 fL (36.4-46.3); Red Blood Count 4.77 Miln/mm3 (4.00-5.20)
--- NOTE | 2024-06-21 07:06 | XR_ITS ---
Examination: CTA chest with intravenous contrast 2-D reconstructions 3-D reconstructions, vascular Date and time of exam: June 21, 2024 1308 hours INDICATIONS: Chest pain shortness of breath today, clinical diagnosis pulmonary embolus CTDI: vol (mGy) 19.7 DLP: (mGycm) 634 Technique: Multiple axial sections of the thorax have been obtained. 3 mm slice thickness, from below the hemidiaphragms to above the apices of the lungs. Mediastinal and lung density settings have been obtained. 2-D sagittal and coronal reconstructions. 3-D angiographic renderings, 3-D volume renderings, 3D post processing, vascular maximum intensity projections obtained. Contrast administered is 100 cc Isovue-370. Low dose protocols were performed. One or more of the following dose reduction techniques were used; automated exposure control, adjustment of the mA and/or KV according to patient size, use of iterative reconstruction technique. Findings: No thoracic aortic aneurysm dilatation or dissection Pulmonary artery segments are not enlarged Pulmonary artery opacification is not optimal, no pulmonary artery emboli noted Severe right lung pneumonia Soft areas of infiltrate throughout the left lung Liver is irregular in contour with diffuse fatty infiltration The liver is enlarged incompletely visualized on this study Gallbladder is distended with gallstones Borderline splenomegaly 12.5 cm IMPRESSION: Pulmonary artery opacification is not optimal, no pulmonary artery emboli Bilateral pneumonia, severe and diffuse in the right lung Cirrhosis Mild splenomegaly Recommend hepatobiliary sonography follow-up to assess the gallbladder which has gallstones
[2024-06-21 07:11] LABS: INR 1.3 (0.9-1.3); Partial Thromboplastin Time 29.3 Seconds (22.0-36.0); Prothrombin Time 13.9 Seconds (9.0-12.2)
[2024-06-21 07:17] LABS: Alanine Aminotransferase 18 U/L (10-49); Alkaline Phosphatase 116 U/L (46-116); Anion Gap 8 (7-16); Aspartate Amino Transferase 20 U/L (0-34); BUN/Creatinine Ratio 17 Ratio (12-20); Bilirubin,Total 1.6 mg/dL (0.3-1.2); Blood Urea Nitrogen 22 mg/dL (9-23); Calcium 9.9 mg/dL (8.3-10.6); Calcium (Corrected) 9.9 mg/dL (8.5-10.1); Chloride 95 mMol/L (98-107); Creatinine (Component) 1.3 mg/dL (0.6-1.3); Estimated Creatinine Clearance 72.1 mL/min (>60); Globulin 4.1 gm/dL (2.3-3.5); Glucose 345 mg/dL (74-106); Magnesium 1.1 mg/dL (1.6-2.6); Osmolality,Calculated 279 (275-295); Potassium 3.6 mMol/L (3.4-5.1); Sodium 131 mMol/L (136-145); Total Protein 8.1 gm/dL (5.7-8.2); Troponin I < 0.020 ng/mL (0.0-0.045); eGFR 52 See Note
[2024-06-21 07:26] LABS: B-Type Natriuretic Peptide 44 pg/mL (0-100)
--- NOTE | 2024-06-21 08:19 | PC.NURSE ---
PT REQUEST TO GET UP TO BR, THIS RN OFFERED A BEDPAN, PT REFUSED AND BEGAN YELLING AT THIS RN, THIS RN THEN OFFERED A BEDSIDE COMMODE PT CONTINUED TO YELL AT THIS RN SAYING THAT SHE WANTED TO WALK TO THE BR. THIS RN EDUCATED HER THAT SHE IS ON OXYGEN AND BEDSIDE COMMODE WOULD BE SAFEST. THIS RN DEEPAK BEDSIDE COMMODE INTO ROOM, ASSISTED PT OOB AND ONTO BEDSIDE COMMODE. PT THEN REQUEST WATER, THIS RN TOLD HER WE WILL HAVE TO ASK THE DOCTOR, PT BECAME UPSET ONCE MORE SAYING I'M DYING OF THIRST, NO ONE IS DOING ANYTHING TO HELP ME THIS RN TOLD HER THIS RN JUST ASSISTED HER TO THE BEDSIDE COMMODE AND PT DENIED IT SAYING I BASICALLY HELPED MYSELF PT CONTINUES TO YELL SHE IS SITTING ON BEDSIDE COMMODE. CALL CHILDRESS GIVEN FOR WHEN SHE IS READY TO BE ASSISTED OFF THE COMMODE.
[2024-06-21 08:34] LABS: Base Excess, Venous 3 (-3-3); O2 Saturation, Venous 28 % (96-97); PCO2, Venous 47 mmHg (36-56); PO2, Venous 19 mmHg (15-58); pH, Venous 7.39 (7.33-7.66)
--- NOTE | 2024-06-21 08:53 | PC.NURSE ---
UNABLE TO GET IV LINE ON PT, REQUEST HELP FROM FELLOW RNS AT THIS TIME.
[2024-06-21 09:00] LABS: Procalcitonin 8.06 ng/ml (0.0-0.49)
[2024-06-21] MEDS: ONDANSETRON INJ 2 MG/ML INJ 2 ML 4 MG IV (09:25)
--- NOTE | 2024-06-21 09:42 | PC.NURSE ---
IV PLACED IN WRIST IS INFILTRATED, AWAITING FOR CHARGE TO PLACE US IV
[2024-06-21 09:47] LABS: Collection Type, Urine Clean Catch
[2024-06-21 10:14] LABS: Amphetamine/Methamp Scrn,U Positive (Negative); Barbiturate Screen,Urine Negative (Negative); Benzodiazepines Screen,Urine Negative (Negative); Benzoylecgonine Screen, Ur Negative (Negative); Fentanyl Screen,Urine Negative (Negative); Opiate Screen,Urine Negative (Negative); THC Screen,Urine Positive (Negative)
[2024-06-21] MEDS: ACETAMINOPHEN 500 MG TABLET 1000 MG PO (10:35)
[2024-06-21] MEDS: guaiFENesin/DM TABLET 1 EACH PO (10:36)
[2024-06-21] MEDS: MORPHINE SULF INJ 10 MG/ML VIAL 4 MG IVP (10:36)
[2024-06-21] MEDS: SODIUM CHLORIDE 0.9% 1000 ML 1,000 ML 999 ML IV ×3 (10:37→18:13)
[2024-06-21] MEDS: PIPER/TAZO 3.375 GM 50 ML IV (10:37)
[2024-06-21 11:10] LABS: Bacteria,Urine 1+; Bilirubin,Urine Negative (Negative); Blood,Urine Negative (Negative); Budding Yeast,Urine Present; Clarity,Urine Turbid (Clear/Hazy); Color,Urine Yellow (Lt Yel-Yel); Glucose, Urine 4+ (Negative); Ketones,Urine Trace (Negative); Leukocyte Esterase,Urine Positive (Negative); Nitrite,Urine Negative (Negative); Protein,Urine 1+ (Neg - Trace); RBC,Urine 14 /hpf (0-3); Specific Gravity,Urine 1.022 (1.001-1.035); Squamous Epithelial Cell,Urine 20 /hpf (0-5); WBC,Urine 5 /hpf (0-5)
[2024-06-21] MEDS: Vancomycin Inj 2,000 MG in SODIUM CHLORIDE 0.9% 500 ML 500 ML 150 MG IV (11:14)
--- NOTE | 2024-06-21 11:30 | PC.CC ---
Patient is a 43 year-old female who presents to the hospital for SOB. Lee Ann DEAN made [id number] contact with patient. ASW introduced self, role, and reason for visit. Patient appeared alert and oriented to self, location, and situation. Patient confirmed information on demographics and reports to living at home with her mother, Shelley Hardy . Patient stated her mother would be her medical decision maker in the event she is unable to make her own medical decisions. Patient has a left below the knee amputation. Patient uses a boot and prosthetic to ambulate. Patient stated at times she also uses her wheelchair. Per patient, the oxygen she is on is new and does not use oxygen at home. Patient is able to complete her own ADLs. Patient receives primary care with Adrian Bean and uses [facility] for prescription medication. Upon discharge patient would like to go to a [facility] facility if possible. financial services sales representative to follow up with any discharge needs.
[2024-06-21 11:31] LABS: Reflex Lactate? Y
[2024-06-21 11:38] LABS: Beta HCG,Quantitative < 1 mIU/mL (<5.0)
--- NOTE | 2024-06-21 11:48 | PC.NURSE ---
Addendum entered by Bhavin Bartlett RN 06/21/24 12:05: admiting provider made aware that pt does not currently have iv access Original Note: new US IV infiltrated. New IV will need to be placed
[2024-06-21] MEDS: RINGERS LACTATED 1000 ML 1,000 ML 100 ML IV (12:45)
--- NOTE | 2024-06-21 13:21 | ESHP_ITS ---
<Statement entered by Garret Sanabria MD - 06/21/24 14:36> I saw and examined the patient, and I agree with current management stated by Dr Dave Damon MD,PGY1. Plan of care was discussed with the attending physician and resident physician. Disclaimer: Despite multiple revisions, due to the dictation software being used, the document bellow may not be free of grammatical errors including phonetic/typographic errors. However, this does not deter from our commitment to providing health care in the patient's best interest in mind. Dr. Elly MD, PGY 2 Documentation for date of: 06/21/24 HPI History of Present Illness Chief complaint: SOB History of present illness: 43 y/o F with PMHx significant for insulin-dependent diabetes, hypertension, peripheral neuropathy presented to ED with chief complaint of shortness of breath and fever x 2 days. Patient was in usual state of health till 2 days ago when she began developing shortness of breath with associated cough, mildly productive of sputum. During this time patient noted she had occasional fevers. Shortness of breath continued to worsen prompting visit to ED. Patient denies nausea, vomiting, chest pain, chills. On exam patient notes right shoulder/back pain, has been present for several days. ED COURSE: Labs significant for: WBC 26, sodium 131, BUN 22, creatinine 1.3, EGFR 52, Pro- Lyndon 8.06, lactic acid 3.0, magnesium 1.1, T. bili 1.6, U tox positive for meth and weed. Imaging significant for: Chest x-ray showing right base pneumonia. Patient given 1 L bolus normal saline, Vanco and Zosyn in the ED. Patient septic: Heart rate 130, respirations 25, WBC 26. Afebrile. Patient peripheral IV infiltrated, difficult to get new one. PMH: DM, HTN, peripheral neuropathy PSH: Left BKA. SH: Patient reports occasional smoking. Allergies:?NKDA Medications: Statin, insulin, lisinopril Review of Systems Review of Systems Systems Reviewed: All systems reviewed, normal except as documented Past Medical History Past Medical History Comments PMH COMMENT: PMH: DM, HTN, peripheral neuropathy PSH: Left BKA. SH: Patient reports occasional smoking. Allergies:?NKDA Medications: Statin, insulin, lisinopril Exam Vital Signs Temp Pulse Resp BP Pulse Ox O2 Del Method O2 Flow Rate 98.3 F 120 H 25 H 123/76 94 L Nasal Cannula 4 06/21/24 12:50 06/21/24 12:44 06/21/24 12:44 06/21/24 12:44 06/21/24 12:44 06/21/24 12:44 06/21/24 12:44 Narrative Exam PE: Gen: Well-developed and well-nourished. Obese. HEENT: NCAT, PERRLA, EOMI, MMM, anicteric conjunctivae. CVS: normal S1 and S2. RRR. No M/R/G. Resp: Poor lung sounds in all lung radford. Mild rhonchi right lower lung field. Abd: soft, non-tender, non-distended. MSK: Significant right lower extremity edema, patient states is normal. Left BKA. Neuro: CN II-XII grossly intact. Strength 5/5 in BUE & BLE. Alert and oriented x3. Lethargic. Psych: appropriate mood and affect. Results: Labs 06/22/24 04:34 06/22/24 04:34 Labs: Short CBC 06/21/24 Range/Units 06:28 WBC 26.0 H (3.6-11.0) Thou/mm3 Hgb 13.0 (12.0-16.0) g/dL Hct 39.3 (36.0-46.0) % Plt Count 273 (140-440) Thou/mm3 BMP 06/21/24 06:28 Sodium 131 L Potassium 3.6 Chloride 95 L Carbon Dioxide 28.0 BUN 22 Creatinine 1.3 Glucose 345 H Calcium 9.9 Cardiac Enzymes 06/21/24 Range/Units 06:28 Troponin I < 0.020 (0.0-0.045) ng/mL Liver Function 06/21/24 Range/Units 06:28 Total Bilirubin 1.6 H (0.3-1.2) mg/dL AST 20 (0-34) U/L ALT 18 (10-49) U/L Alkaline Phosphatase 116 (46-116) U/L Albumin 4.0 (3.5-5.0) gm/dL Urine 06/21/24 Range/Units 08:49 Urine Color Yellow (Lt Yel-Yel) Urine Clarity Turbid A (Clear/Hazy) Urine pH 6.0 (5.0-7.0) Ur Specific Clarence 1.022 (1.001-1.035) Urine Protein 1+ A (Neg - Trace) Urine Glucose (UA) 4+ A (Negative) ABG Interpretation ABG results: 06/21/24 08:27 VBG pH 7.39 VBG pCO2 47 VBG pO2 19 VBG Base Excess 3 Quality Measures Quality Measures sepsis Current suspected stage: sepsis Possible source: pulmonary Blood cultures ordered: yes Antibiotic ordered: Yes Medications Home Medications and Allergies Home Medications ?Medication ?Instructions ?Recorded ?Confirmed ?Type atorvastatin 20 mg tablet 20 mg PO QDAY 05/12/24 05/12/24 History lisinopril 20 mg tablet 20 mg PO QDAY 05/12/24 05/12/24 History Allergies Allergy/AdvReac Type Severity Reaction Status Date / Time No Known Allergies Allergy Verified 04/15/20 17:43 Visit Medications Acetaminophen (Acetaminophen 325 Mg Tablet) 650 mg PO Q6H PRN PRN Reason: PAIN SCALE 1-3 (mild Stop: 07/21/24 11:09 Guaifenesin/Dextromethorphan (Guaifenesin/Dm Tablet) 1 each PO Q4HR PRN PRN Reason: COUGH Stop: 07/21/24 11:12 Heparin Sodium (Porcine) (Heparin Sod Inj 5000 Unit/Ml Vial) 5,000 unit SC Q12HR PATSY Stop: 07/05/24 20:59 Lactated Ringer's (Lactated Ringers) 1,000 mls @ 100 mls/hr IV .Q10H PATSY Stop: 07/21/24 11:14 Last Admin: 06/21/24 12:45 Dose: 100 mls/hr Magnesium Sulfate (Magnesium Sulfate Ivpb) 4 gm in 50 mls @ 12.5 mls/hr IV X1 ONE Stop: 06/21/24 17:59 Sodium Chloride (Ns) 1,000 mls @ 999 mls/hr IV .Q1H1M ONE Stop: 06/21/24 13:22 Ondansetron HCl (Ondansetron Inj 2 Mg/Ml Inj 2 Ml) 4 mg IV Q6H PRN; Protocol PRN Reason: NAUSEA OR VOMITING Stop: 07/21/24 11:09 Discontinued Medications Acetaminophen (Acetaminophen 500 Mg Tablet) 1,000 mg PO X1 ONE Stop: 06/21/24 09:28 Last Admin: 06/21/24 10:35 Dose: 1,000 mg Guaifenesin/Dextromethorphan (Guaifenesin/Dm Tablet) 1 each PO X1 ONE Stop: 06/21/24 07:08 Last Admin: 06/21/24 10:36 Dose: 1 each Piperacillin/Tazobactam/Dextrose (Zosyn) 50 mls @ 100 mls/hr IV X1 ONE Stop: 06/21/24 08:47 Last Infusion: 06/21/24 11:07 Dose: Infused Vancomycin HCl 2,000 mg/ (Sodium Chloride) 500 mls @ 150 mls/hr IV X1 ONE Stop: 06/21/24 11:39 Last Admin: 06/21/24 11:14 Dose: 150 mls/hr Magnesium Sulfate (Magnesium Sulfate Ivpb) 4 gm in 50 mls @ 12.5 mls/hr IV X1 ONE Stop: 06/21/24 12:20 Last Admin: 06/21/24 11:36 Dose: Not Given Sodium Chloride (Ns) 1,000 mls @ 999 mls/hr IV .Q1H1M ONE Stop: 06/21/24 09:22 Last Admin: 06/21/24 10:37 Dose: 999 mls/hr Sodium Chloride (Ns) 1,000 mls @ 999 mls/hr IV .Q1H1M ONE Stop: 06/21/24 10:24 Last Admin: 06/21/24 12:45 Dose: 999 mls/hr Morphine Sulfate (Morphine Sulf Inj 10 Mg/Ml Vial) 4 mg IVP X1 ONE Stop: 06/21/24 08:24 Last Admin: 06/21/24 10:36 Dose: 4 mg Ondansetron HCl (Ondansetron Inj 2 Mg/Ml Inj 2 Ml) 4 mg IV X1 ONE; Protocol Stop: 06/21/24 08:24 Last Admin: 06/21/24 09:25 Dose: 4 mg Assessment & Plan Plan 43 y/o F with PMHx significant for insulin-dependent diabetes, hypertension, peripheral neuropathy presented to ED with chief complaint of shortness of breath and fever x 2 days, admitted for sepsis secondary to CAP. #Sepsis secondary to CAP #Acute hypoxic respiratory failure Patient presented with chief complaint shortness of breath and fever at home. Patient found to be septic: Heart rate 130, respirations 25, WBCs 26. Chest x- ray showed right base pneumonia. Lactic acid 3.0, increased to 3.8. Patient was unable to receive IV fluids for extended period of time due to difficulty getting peripheral IV. 2 peripheral IVs successfully placed. Blood and urine cultures drawn. Pro-Lyndon 8.06. Requiring O2 to maintain saturations, On room air at baseline. -Vanco pharmacy dosing (started 06/21) -Zosyn 3.375 g IV every 8 hours (started 06/21) -IVF: Lactated Ringer's 100 mL/h x 1 L -3 L bolus normal saline ordered -Blood and urine cultures pending -Tessalon as needed for cough -O2, titrate as needed -Follow lactate -Cocci, flu test ordered, follow-up #MARCELA, prerenal due to dehydration Patient has a mild MARCELA. BUN 22, creatinine 1.3, EGFR 52. Likely dehydration in setting of sepsis. -IVF as above -Avoid nephrotoxins -Renally dose meds -Monitor daily renal function #Meth abuse U-Tox positive for meth. Patient knowledges meth use on occasion. No history of heart disease known, last echo 4 years ago. -Counseled against drug use -Echo ordered, follow-up #Diabetes, insulin-dependent Patient has history of diabetes requiring home insulin use. HA1C 11.6% as of 05/12/2024. -Lantus 15 units daily -ISS #Hypertension, patient history Patient has history as stated. Patient BP initially elevated, decreased rapidly in ED. Current receiving IVF. -IVF as above -Hold home medications in setting of sepsis. DVT prophylaxis: Heparin GI prophylaxis: None Diet: Carb consistent, renal Lines: Peripheral IVs Code status: Full code Plan of care discussed with senior resident Dr. Sanabria PGY?[address] Waterman. Steve Ridley MD PGY?1 Attending Provider Attestation/Addendum I have examined the patient, reviewed labs and imaging findings, discussed the case with the resident(s), and reviewed entered orders. I agree with the plan of care as outlined in this note, with these additional summaries/recommendations: Patient seen at bedside. Patient will be admitted for acute hypoxic respiratory failure and sepsis secondary to bilateral pneumonia which is severe and diffuse in right lung. CTA negative for pulmonary embolism. Start broad-spectrum antibiotics with IV vancomycin and IV Zosyn. Follow-up culture results. Lactic acidosis present and around 3.0. Patient has lost IV access multiple times and we will order PICC line to give sepsis fluid protocol. Of note lactic acid appears elevated consistently likely secondary to liver disease with superimposed sepsis. Will give fluids and continue to trend lactic acid. Hypomagnesia present and replacement given. Continue basal and bolus insulin for diabetes mellitus type 2. A1c 11.6% and ordered diabetic education. Patient methamphetamine positive and will consult social welfare clerk for resources once more improved. Dr. Waterman
[2024-06-21] MEDS: Magnesium Sulfate 4 GM Ivpb 4 GM/50 ML BAG IV (13:48)
--- NOTE | 2024-06-21 13:50 | PC.NURSE ---
CALLED ADMITTING PROVIDER AT THIS TIME TO REQUEST BREATHING TREATMENT OR DEEP SUCTION, PROVIDER TO PUT ORDER IN.
[2024-06-21] MEDS: ALBUTEROL/IPRATROPIUM (Duoneb) RT SOL 3 ML NEBU INH ×3 (14:34→22:58)
--- NOTE | 2024-06-21 14:47 | PC.NURSE ---
prior to transferring pt this RN called RT to request breathing treatment as pt sounded wet, RT came to bedside to administer treatment, pt began yelling at him, turning her head back and forth refusing the treatment.
[2024-06-21 15:05] LABS: Reflex Lactate? Y
[2024-06-21 15:30] LABS: Lactic Acid, 3 HR 3.8 mMol/L (0.4-2.0)
--- NOTE | 2024-06-21 17:19 | XR_ITS ---
Examination: AP chest single view Technique: AP portable upright chest single view Exam date and time: June 26, 2024 1812 hrs. Comparison June 21, 2024 Indications: Shortness of breath today. Findings: Bilateral pneumonia, significant in the right lung Enlarged cardiac contour with prominent vascular congestion Reduced inspiratory effort Moderate osteopenia Impression: Significant bilateral pneumonia Associated heart failure
[2024-06-21 17:38] LABS: Base Excess -3 (-3-3); HCO3 25 mEq/L (20-26); Inspired O2, VO2 Liters 8 L/min; Inspired Oxygen, FIO2 21 %; O2 Saturation 93 % (91-98); PCO2 54 mmHg (32.0-48.0); PO2 71 mmHg (83-108); pH, Arterial 7.27 (7.35-7.45)
[2024-06-21 17:39] LABS: Allen Test Performed/OK; Puncture Site Right Radial
[2024-06-21] MEDS: PIPER/TAZO 3.375 GM 3.375 GM/50 ML BAG IV (18:18)
[2024-06-21] MEDS: INSULIN LISPRO (AdmeLOG) 1 UNIT/0.01 ML UNIT SC (18:28)
--- NOTE | 2024-06-21 19:14 | PC.NURSE ---
1500 PATIENT RECEIVED FROM ER. PATIENT ARGUING WITH ER STAFF. C/O SHE DID NOT GET FLUIDS OR FOOD IN THE ER. DEMANDING SHE WANTS WATER. PATIENT ASKED TO WAIT UNTIL WE GET HER SITUATED, TRANSFERRED TO HER BED. PATIENT UNCOOPERATIVE. PATIENT SAT UP AND MOVED FORWARD LIKE SHE WAS GOING TO GET OFF OF THE GUERNEY. LEONEL METZ CALLED TO GET HELP TO KEEP PATIENT SAFE. 1615 MONITOR R=TECH CALLING PATIENT IS DESATURATING WENT TO SEE PATIENT SHE IS ASLEEP. 02 INCREASED TO 5L VIA NC. NO CHANGE. ATTEMPTED TO PUT OXYMASK ON TO INCREASED O2. PATIENT WOKE UP AND STARTED DEMANDING WATER AGAIN. PATIENT INFORMED THAT SHE IS NOT BREATHING WELL AND O2 SAT IS DECREASING. NEED TO PUT O2 MASK ON. PATIENT STARTED TO GRAB THE MASK AND DID NOT ALLOW IT TO BE PUT ON AND CONTINUED TO DEMAND SHE WANTED WATER. RT CALLED AT THIS TIME. 1730 SUPPLIER QUALITY ENGINEER CALLING AGAIN THAT PATIENT O2 SAT GOING DOWN. RT CALLED AGAIN. PATIENT HAD REMOVED O2 MASK TO EAT. PATIENT NOW VERY LETHARGIC.
--- NOTE | 2024-06-21 19:33 | PC.NURSE ---
UNABLE TO ASK PATIENT QUESTIONS SHE IS UNCOOPERATIVE AND ONLY VOICING COMPLAINTS. ADMISSION NOT DONE AT THIS TIME.
--- NOTE | 2024-06-21 19:51 | PC.NURSE ---
Pt requesting to have bipap taken off due to feeling anxious and wants to be placed back on NC. Educated pt on importance of bipap due to her o2 dropping on the NC and oxy mask. Pt continues to say please just take it off I dont want it on . Dr hendrickson called and made aware. States she will review chart.
[2024-06-21] MEDS: LORazepam 2 MG/ML VIAL 0.5 MG IVP (20:09)
[2024-06-21 20:12] LABS: Base Excess -2 (-3-3); HCO3 24 mEq/L (20-26); Inspired Oxygen, FIO2 50 %; O2 Saturation 96 % (91-98); PCO2 50 mmHg (32.0-48.0); PO2 82 mmHg (83-108)
[2024-06-21 20:17] LABS: Allen Test Performed/OK; Puncture Site Right Radial
--- NOTE | 2024-06-21 20:19 | PC.NURSE ---
Addendum entered by Nicole Mohan RN 06/21/24 21:01: STEEL WOOL MACHINE OPERATOR called on pt. Pt removed bilat wrist restraints and removed bipap stating she is not going to be doing any of this Pt transferred to ICU for further medical care. Chester abernathy called on pt due to patient becoming combative and refusing medical care. Report given to Herman PACHECO. Addendum entered by Nicole Mohan RN 06/21/24 20:35: Dr. Crook now at bedside assessing pt. Addendum entered by Nicole Mohan RN 06/21/24 20:35: Dr. Padron also at bedside; Per Dr. Padron bilat wrist restraints and bipap at this time. Addendum entered by Nicole Mohan RN 06/21/24 20:32: at bedside. assessing pt. pt continuing to refuse placement of bibap. recent ABG resulted. MD aware. Original Note: Patient refusing to be placed on bipap despite several verbal prompts and education. Spo2 at 85%. Dr. Dobson called and made aware. oxymask placed on pt at this time at 10 L. spo2 remains in the low 90s. Per Dr dobson she will come up to assess pt.
--- NOTE | 2024-06-21 21:08 | ESCONSULT_ITS ---
HPI Data of Consult Consult date: 06/21/24 Requesting Physician: Raul Waterman MD Admitting Provider: Raul Waterman MD Attending Provider: Raul Waterman MD Primary Care Provider: Adrian Bean PA-C Consult Narrative Reason for consult: Hypercapnic Respiratory failure History of present illness: Ms. Nati Mccall is a 43 year old lady with past medical history significant for insulin-dependent diabetes, hypertension and peripheral neuropathy who presented to the ED on 04/21/2025 with a chief complaint of shortness of breath and fever of 2 days duration. Patient was in usual state of health until 2 days prior to presentation when she began to develop shortness of breath associated with productive cough. During this time patient noted she had occasional fevers. Shortness of breath continued to worsen prompting visit to ED. Patient denies nausea, vomiting, chest pain, chills. On exam patient notes right shoulder/back pain, has been present for several days. ED COURSE: Labs significant for: WBC 26, sodium 131, BUN 22, creatinine 1.3, EGFR 52, Pro- Lyndon 8.06, lactic acid 3.0, magnesium 1.1, T. bili 1.6, U tox positive for meth and weed. Imaging significant for: Chest x-ray showing right base pneumonia. Patient given 3 L bolus normal saline and maintenence fluids, started on Vanco and Zosyn in the ED. Patient was subsequently admitted for sepsis secondary to CAP. Shortly after being admitted, the patient was noted to be lethargic and an ABG was performed which showed pH 7.27/pCO2 54/HCO3 25. The patient was started on BiPAP in an attempt to reduce CO2. After approximately 2 hours after initiating BiPAP a repeat abg showed the pH and CO2 minimally improve to 7.3 and 50 respectively. The patient then became more alert and again removed her BiPAP mask. The patient would not tolerate BiPAP due to feeling claustrophobic and would repeatedly remove the BiPAP mask. The patient was administered Ativan 0.5 mg x 1 to reduce anxiety, however the patient was still noncompliant. She was then placed on restraints with a sitter however became agitated and freed herself from the restraints and again removed her BiPAP. A repeat blood gas showed worsening of her Ph and PCO2, at which time ICU was consulted to admit the patient for possible need for intubation. Patient was then administered Haldol 5mg x 1 to help reduce her agitation and for compliance with the BiPAP. A repeat ABG again showed worsening. Due to still being non-compliant, she was then started on a precedex drip at which point she was sedated enough to comply with the BiPAP. A VBG showed improvement with a pH of 7.30/pCO2 51. cc:: cc: Raul Waterman MD Past Medical History Past Medical History Comments PMH COMMENT: Past Medical History: IDDM, Hypertension, peripheral neuropathy Past Surgical History:Left below knee amputation Home Medications: Pending reconciliation Allergies: NKDA Family History: Social History: EtOH usage: Unable to obtain Smoking History: reported current smoker Illicit drug usage: Utoox positive for methamphetamine and marijuana Occupation: Unable to obtain Living situation: Unable to obtain Exam Vital Signs Temp Pulse Resp BP Pulse Ox O2 Del Method O2 Flow Rate 97.0 F 117 H 26 H 117/62 96 BiPAP 4 06/21/24 20:00 06/21/24 20:00 06/21/24 20:00 06/21/24 20:00 06/21/24 20:00 06/21/24 20:00 06/21/24 16:00 FiO2 50 06/21/24 18:41 Narrative Exam General: obese, sick appearing, appears to be in respiratory distress, agitated HEENT: NC/AT, NT Lungs: Rales auscultated at B/L bases CVS: Tachycardic rate, regular rythym, no murmurs, rubs or gallops Resp: diminished breath sounds in B/L lung radford. ABD: soft, non-distended, non-tender EXT: Left BKA with prosthetic leg noted, RLE with 2+ pitting edema, warm well perfused Neuro: Patient is acutely agitated , unable to perform thorough neuro exam however no gross focal neurological deficits noted Lines: N/A PIV: Left wrist 18 gauge, Right upper arm 20 gauge Baker: Pure wick Drips: Precedex gtt Results Labs 06/22/24 04:34 06/22/24 04:34 Labs: Short CBC 06/21/24 Range/Units 06:28 WBC 26.0 H (3.6-11.0) Thou/mm3 Hgb 13.0 (12.0-16.0) g/dL Hct 39.3 (36.0-46.0) % Plt Count 273 (140-440) Thou/mm3 BMP 06/21/24 06:28 Sodium 131 L Potassium 3.6 Chloride 95 L Carbon Dioxide 28.0 BUN 22 Creatinine 1.3 Glucose 345 H Calcium 9.9 Cardiac Enzymes 06/21/24 Range/Units 06:28 Troponin I < 0.020 (0.0-0.045) ng/mL Liver Function 06/21/24 Range/Units 06:28 Total Bilirubin 1.6 H (0.3-1.2) mg/dL AST 20 (0-34) U/L ALT 18 (10-49) U/L Alkaline Phosphatase 116 (46-116) U/L Albumin 4.0 (3.5-5.0) gm/dL Urine 06/21/24 Range/Units 08:49 Urine Color Yellow (Lt Yel-Yel) Urine Clarity Turbid A (Clear/Hazy) Urine pH 6.0 (5.0-7.0) Ur Specific [place] 1.022 (1.001-1.035) Urine Protein 1+ A (Neg - Trace) Urine Glucose (UA) 4+ A (Negative) ABG Interpretation ABG results: 06/21/24 06/21/24 06/21/24 08:27 17:30 20:02 ABG pH 7.27 L 7.30 L ABG pCO2 54 H 50 H ABG pO2 71 L 82 L ABG HCO3 25 24 ABG O2 Saturation 93 96 ABG Base Excess -3 -2 VBG pH 7.39 VBG pCO2 47 VBG pO2 19 VBG Base Excess 3 Quality Measures Quality Measures sepsis Current suspected stage: sepsis Possible source: pulmonary Blood cultures ordered: yes Antibiotic ordered: Yes Medications Home Medications and Allergies Home Medications ?Medication ?Instructions ?Recorded ?Confirmed ?Type atorvastatin 20 mg tablet 20 mg PO QDAY 05/12/24 06/22/24 History empagliflozin 25 mg tablet 25 mg PO QDAY 06/22/24 06/22/24 History (Jardiance) insulin glargine 100 unit/mL (3 See Rx Instructions .Route .COMPLEX 06/22/24 06/22/24 History mL) subcutaneous pen (Basaglar KwikPen U-100 Insulin) loratadine 10 mg tablet 10 mg PO QDAY 06/22/24 06/22/24 History pioglitazone 45 mg tablet 45 mg PO QDAY 06/22/24 06/22/24 History Allergies Allergy/AdvReac Type Severity Reaction Status Date / Time No Known Allergies Allergy Verified 04/15/20 17:43 Visit Medications Acetaminophen (Acetaminophen 325 Mg Tablet) 650 mg PO Q6H PRN PRN Reason: PAIN SCALE 1-3 (mild Stop: 07/21/24 11:09 Hydrocodone Bitart/Acetaminophen (Hydrocodone/Apap 5/325 Tablet) 1 tab PO Q4HR PRN PRN Reason: PAIN SCALE 4-10(Mod-Sev Stop: 06/26/24 13:32 Albuterol/Ipratropium (Albuterol/Ipratropium (Duoneb) Rt Melina 3 Ml Nebu) 3 ml INH Q4HRRT PATSY Stop: 07/21/24 17:24 Last Admin: 06/21/24 18:41 Dose: 3 ml Benzonatate (Benzonatate 100 Mg Capsule) 100 mg PO Q8HR PRN; Protocol PRN Reason: COUGH Stop: 07/21/24 14:51 Dextrose (Dextrose 50%-Water Inj 50 Ml Syringe) 25 ml IV Q15MIN PRN PRN Reason: BG 50-70 responsive npo pt Stop: 07/21/24 13:24 Dextrose (Dextrose 50%-Water Inj 50 Ml Syringe) 50 ml IV Q15MIN PRN PRN Reason: BG <50 OR BG <70 & pt unresponsive Stop: 07/21/24 13:24 Glucagon (Glucagon Inj 1 Mg Vial) 1 mg IM Q15MIN PRN PRN Reason: BG <70, and no IV access Guaifenesin/Dextromethorphan (Guaifenesin/Dm Tablet) 1 each PO Q4HR PRN; Protocol PRN Reason: COUGH Stop: 07/21/24 11:12 Heparin Sodium (Porcine) (Heparin Sod Inj 5000 Unit/Ml Vial) 5,000 unit SC Q12HR PATSY Stop: 07/05/24 20:59 Piperacillin/Tazobactam/Dextrose (Zosyn) 3.375 gm in 50 mls @ 12.5 mls/hr IV Q8HR PATSY Stop: 06/28/24 13:59 Last Admin: 06/21/24 19:49 Dose: Not Given Vancomycin HCl/Dextrose (Vancomycin/D5w 1,250 Mg Ivpb) 250 mls @ 120 mls/hr IV Q12H PATSY Stop: 06/28/24 21:59 Insulin Glargine (Insulin Glargine (Lantus) 5 Unit/0.05 Ml (Per 5 Units)) 15 unit SC HS [facility] Stop: 07/21/24 20:59 Insulin Human Lispro (Insulin Lispro (Admelog) 1 Unit/0.01 Ml Unit) 0 unit SC AC PATSY; Protocol Stop: 07/21/24 16:59 Last Admin: 06/21/24 18:28 Dose: 4 unit Ondansetron HCl (Ondansetron Inj 2 Mg/Ml Inj 2 Ml) 4 mg IV Q6H PRN; Protocol PRN Reason: NAUSEA OR VOMITING Stop: 07/21/24 11:09 Pharmacy Consult (Vancomycin Pharmacy To Dose 1 Each Each) 1 each IV QDAY PRN PRN Reason: CONSULT Stop: 07/22/24 08:59 Pharmacy Consult (Pharmacy Renal Dose Adjustment 1 Ea) 1 each XX PRN PRN PRN Reason: CONSULT Stop: 07/21/24 13:28 Discontinued Medications Acetaminophen (Acetaminophen 500 Mg Tablet) 1,000 mg PO X1 ONE Stop: 06/21/24 09:28 Last Admin: 06/21/24 10:35 Dose: 1,000 mg Albuterol/Ipratropium (Albuterol/Ipratropium (Duoneb) Rt Melina 3 Ml Nebu) 3 ml INH Q2HR PRN PRN Reason: SHORTNESS OF BREATH OR WHEEZE Stop: 07/21/24 13:49 Last Admin: 06/21/24 14:34 Dose: 3 ml Albuterol/Ipratropium (Albuterol/Ipratropium (Duoneb) Rt Melina 3 Ml Nebu) 3 ml INH Q4H PATSY Stop: 07/21/24 17:29 Albuterol/Ipratropium (Albuterol/Ipratropium (Duoneb) Rt Melina 3 Ml Nebu) 3 ml INH X1 ONE Stop: 06/21/24 17:24 Furosemide (Furosemide Inj 10 Mg/Ml 4ml Vial) 40 mg IVP X1 ONE Stop: 06/21/24 20:36 Guaifenesin/Dextromethorphan (Guaifenesin/Dm Tablet) 1 each PO X1 ONE Stop: 06/21/24 07:08 Last Admin: 06/21/24 10:36 Dose: 1 each Haloperidol Lactate (Haloperidol Lact Inj 5 Mg/Ml Vial) 5 mg IV X1 ONE Stop: 06/21/24 21:01 Piperacillin/Tazobactam/Dextrose (Zosyn) 50 mls @ 100 mls/hr IV X1 ONE Stop: 06/21/24 08:47 Last Infusion: 06/21/24 11:07 Dose: Infused Vancomycin HCl 2,000 mg/ (Sodium Chloride) 500 mls @ 150 mls/hr IV X1 ONE Stop: 06/21/24 11:39 Last Admin: 06/21/24 11:14 Dose: 150 mls/hr Magnesium Sulfate (Magnesium Sulfate Ivpb) 4 gm in 50 mls @ 12.5 mls/hr IV X1 ONE Stop: 06/21/24 12:20 Last Admin: 06/21/24 11:36 Dose: Not Given Sodium Chloride (Ns) 1,000 mls @ 999 mls/hr IV .Q1H1M ONE Stop: 06/21/24 09:22 Last Admin: 06/21/24 10:37 Dose: 999 mls/hr Sodium Chloride (Ns) 1,000 mls @ 999 mls/hr IV .Q1H1M ONE Stop: 06/21/24 10:24 Last Admin: 06/21/24 12:45 Dose: 999 mls/hr Lactated Ringer's (Lactated Ringers) 1,000 mls @ 100 mls/hr IV .Q10H PATSY Stop: 07/21/24 11:14 Last Admin: 06/21/24 12:45 Dose: 100 mls/hr Magnesium Sulfate (Magnesium Sulfate Ivpb) 4 gm in 50 mls @ 12.5 mls/hr IV X1 ONE Stop: 06/21/24 17:59 Last Admin: 06/21/24 13:48 Dose: 12.5 mls/hr Sodium Chloride (Ns) 1,000 mls @ 999 mls/hr IV .Q1H1M ONE Stop: 06/21/24 13:22 Last Admin: 06/21/24 18:13 Dose: 999 mls/hr Lorazepam (Lorazepam 2 Mg/Ml Vial) 0.5 mg IVP X1 ONE Stop: 06/21/24 19:51 Last Admin: 01/22/25 20:09 Dose: 0.5 mg Morphine Sulfate (Morphine Sulf Inj 10 Mg/Ml Vial) 4 mg IVP X1 ONE Stop: 06/21/24 08:24 Last Admin: 06/21/24 10:36 Dose: 4 mg Ondansetron HCl (Ondansetron Inj 2 Mg/Ml Inj 2 Ml) 4 mg IV X1 ONE; Protocol Stop: 06/21/24 08:24 Last Admin: 06/21/24 09:25 Dose: 4 mg Assessment & Plan Plan Assessment & Plan Neurological #Agitation Patient became acutely agitated due to claustrophobia from BiPAP mask. Patient was repeatedly removing mask resulting in worsening of her Hypercapnic respiratory failure. A trial of ativan and Haldol were administered in an attempt to reduce her anxiety and agitation, however were inaffective. Patient was then placed on a precedex drip for sedation at which point the patient was sedated enough to comply with the BiPAP mask. Management: - BiPAP - Continue sedation with precedex for BiPAP compliance to allow for CO2 washout - RASS goal: 0 Cardiology #Meth abuse #? Drug induced Heart Failure U-Tox positive for methamphetamine. Patient admits to methamphetamine usage. No history of heart disease known, last echo 4 years ago. Patient does have unilateral RLE edema on physical exam. BNP however within normal limits. -Echo: Pending Pulmonary #Acute Hypercapnic Respiratory failure 2/2 pneumonia Patient was lethargic which prompted an ABG which showed elevated CO2 levels. Patient was then placed on bipap to allow for CO2 washout. Patient however did not tolerate BiPAP despite anxxolytics and antipsychots administration. Patient was then placed on precedex drip for BiPAP compliance. #Hypertension, patient history Patient has history as stated. Patient BP initially elevated, decreased rapidly in ED. -Hold home medications in setting of sepsis. -Close monitoring of BP as Precedex can cause both hypotension and hypertension. -COntinue to monitor ABG for worsening hypercapnia and low threshold for intubation if deemed necessary Gastrointestinal #Hyperbilirubinemia Total Bilirubin: 1.6 -Continue to monitor with daily CMP Renal/Genitourinary #Acute Kidney Injury Patient has a mild MARCELA. BUN 22, creatinine 1.3, EGFR 52. Most likely prerenal in etiology 2/2 dehydration in setting of sepsis. -Discontinue IVF due to fluid overload. -Avoid nephrotoxins -Renally dose meds -Monitor daily renal function -For essential medications that are renally cleared, adjust dosing daily -Avoid Iodinated contrast media to prevent contrast induced nephropathy -Avoid Gadolinium-based contrast agents to prevent?nephrogenic systemic fibrosis -Avoid Nephrotoxic medications and drugs that may have a detrimental effect on glomerular pefusion -Continue fluid resuscitation with NS mls/h Endocrine #Diabetes, insulin-dependent Patient has history of diabetes requiring home insulin use. HA1C 11.6% as of 05/12/2024. -Lantus 15 units daily -ISS Hemetology H&H: 13.0/39.3% Stable, will continue to monitor with daily CBC DVT prophylaxis: Heparin 5000 units SC q12hrs Infectious Disease #Sepsis secondary to CAP #Acute hypoxic respiratory failure Patient presented with chief complaint shortness of breath and fever at home. Patient found to be septic: Heart rate 130, respirations 25, WBCs 26. Chest x- ray showed right base pneumonia. Lactic acid 3.0, increased to 3.8. Patient was unable to receive IV fluids for extended period of time due to difficulty getting peripheral IV. 2 peripheral IVs successfully placed. Blood and urine cultures drawn. Pro-Lyndon 8.06. Requiring O2 to maintain saturations, On room air at baseline. Patient recieved 3L IVF and maintenence fluids which may have exacerbated her respiratory distress. #Sepsis secondary to pneumonia versus UTI Patient met SIRS criteria (WBC 41.4, Pulse 126, RR 20) with 2 suspected sources of Pneumonia and UTI as evidenced on Chest/Abdomen/Pelvis CT. Patient received 30 cc/kg and IV antibiotics vancomycin and Zosyn in the ED. Lactic Acid: 2.0, Procalcitonin 12.08 -Blood and urine cultures pending -Tessalon as needed for cough -O2, titrate as needed -Cocci, flu test ordered, follow-up Antibiotic regimen: -Vanco pharmacy dosing (06/21-) -Zosyn 3.375 g IV every 8 hours (06/21-) Skin - no acute issues, no evidence of skin breakdown Patient's case was discussed with supervising attending physician Dr. Ambreen Padron M.D. Internal Medicine PGY-3 Attending Provider Attestation/Addendum I have discussed and was present for the essential components of the history, physical examination, diagnosis, and treatment plan with the resident. I agree with the patient's care as documented by the resident and amended herein by me. Jw Crook DO. Although this document has been carefully reviewed, there may still be some phonetic and other typographical errors. These errors are purely grammatical due to imperfections in the software program and should not be construed in any way to compromise the substance of the patient's medical care during this visit.
[2024-06-21] MEDS: HALOPERIDOL LACT INJ 5 MG/ML VIAL IV (21:12)
[2024-06-21] MEDS: FUROSEMIDE INJ 10 MG/ML 4ML VIAL 40 MG IVP (21:13)
[2024-06-21] MEDS: HEPARIN SOD INJ 5000 UNIT/ML VIAL SC (21:13)
[2024-06-21] MEDS: INSULIN GLARGINE (Lantus) 5 UNIT/0.05 ML (PER 5 UNITS) 15 UNIT SC (21:18)
[2024-06-21] MEDS: VANCOMYCIN/D5W 1,250 MG IVPB 250 ML 120 MG IV (21:37)
[2024-06-21 21:40] LABS: Base Excess -3 (-3-3); HCO3 25 mEq/L (20-26); Inspired Oxygen, FIO2 100 %; O2 Saturation 92 % (91-98); PCO2 56 mmHg (32.0-48.0); PO2 69 mmHg (83-108); pH, Arterial 7.26 (7.35-7.45)
[2024-06-21 21:45] LABS: Allen Test Performed/OK; Puncture Site Right Radial
[2024-06-21] MEDS: DEXMEDETOMIDINE 200 MCG IVPB 200 MCG/50 ML BOTTLE 25.401 MCG IV ×2 (21:45→22:51)
[2024-06-21 21:54] LABS: pH, Venous 7.27 (7.33-7.66)
[2024-06-21 21:55] LABS: Base Excess, Venous -3 (-3-3); O2 Saturation, Venous 84 % (96-97); PCO2, Venous 53 mmHg (36-56); PO2, Venous 52 mmHg (15-58)
[2024-06-21 23:02] LABS: Base Excess, Venous -2 (-3-3); O2 Saturation, Venous 86 % (96-97); PCO2, Venous 51 mmHg (36-56); PO2, Venous 55 mmHg (15-58)
[2024-06-22] VITALS (82 sets, daily range): BP systolic 68–186; BP diastolic 47–91; PULSE 82–125; RESP 20–32; TEMP 36–37.6; O2SAT 93–100; BMI 53.3
[2024-06-22 00:04] LABS: Lactate (Lactic Acid) 1.6 mMol/L (0.4-2.0)
[2024-06-22 00:48] LABS: Base Excess -2 (-3-3); HCO3 24 mEq/L (20-26); Inspired O2, VO2 Liters 4 L/min; Inspired Oxygen, FIO2 21 %; O2 Saturation 98 % (91-98); PCO2 47 mmHg (32.0-48.0); PO2 96 mmHg (83-108); pH, Arterial 7.32 (7.35-7.45)
[2024-06-22 00:50] LABS: Allen Test Performed/OK; Puncture Site Right Radial
[2024-06-22] MEDS: DEXMEDETOMIDINE 200 MCG IVPB 200 MCG/50 ML BOTTLE 25.401 MCG IV (00:50)
[2024-06-22] MEDS: ETOMIDATE INJ 2 MG/ML VIAL 10 ML 25 MG IVP (01:23)
[2024-06-22] MEDS: ROCURONIUM INJ 10 MG/ML VIAL 10 ML 100 MG IVP (01:24)
--- NOTE | 2024-06-22 01:25 | XR_ITS ---
Examination: AP chest single view TECHNIQUE: AP portable semiupright chest single view Exam date and time: June 22, 2024 0133 hours Comparison June 21, 2024 INDICATIONS: Hypoxic respiratory failure postintubation today, significant bilateral pneumonia on chest film June 21, 2024 FINDINGS: Significant bilateral perihilar bibasilar pneumonia Endotracheal tube tip 3.6 cm above leyla Orogastric tube is in the stomach, the tip is below the level of the film Moderate vascular congestion IMPRESSION: Worsening significant bilateral pneumonia
--- NOTE | 2024-06-22 01:27 | XR_ITS ---
Examination: AP chest single view Technique one AP portable semiupright chest single view INDICATIONS: Hypoxic respiratory failure today, reposition endotracheal tube, severe bilateral pneumonia on chest film yesterday and today Exam date and time: June 22, 2024 013 hours Comparison June 22, 2024 0133 hours FINDINGS: Significant bilateral perihilar bibasilar pneumonia Endotracheal tube tip 4 cm above leyla The orogastric tube is in the stomach, the tip is below the level of the film Moderate vascular congestion IMPRESSION: Significant bilateral pneumonia Endotracheal tube tip 4 cm above leyla
--- NOTE | 2024-06-22 01:28 | PD.RESPROC ---
Procedures Procedure Date / Time 06/22/24 0128 Procedural Time Out Time out performed: Timeout was performed. I was present the entire time for the procedure. Reviewed the management of this patient and the intubation and agree with the note. Dr. Crook will follow-up on the patient's chest x-ray. Procedure Narrative Procedure Narrative: DESCRIPTION OF PROCEDURE IN DETAIL The patient was lying in the supine position. Preoxygenation via BVM was provided. The patient had continuous cardiac as well as pulse oximetry monitoring during the procedure. Rapid sequence induction was provided by administration of 25 mg of Etomidate and 100 mg of Rocuronium. A GlideScope was used to directly visualize the vocal cords. A 7.5 mm endotracheal tube was visualized advancing between the cords to a level of 24 cm at the gums. The sylette was then removed. Tube placement was also noted by fogging in the tube, equal and bilateral breath sounds, no sounds over the epigastrium, and end-tidal colorimetric monitoring. The cuff was then inflated with 10cc?s of air and the tube secured using a commercially available device. A good pulse oximetry wave form was seen on the monitor throughout the procedure. The patient was then connected to the ventilator. A portable chest x-ray for placement showed the ET tube above the leyla. The patient tolerated the procedure well. My attending Dr. Loreto Costello MD was present and supervised the entirety of the procedure. Intubation Indication(s): acute Resp Failure Informed consent obtained: obtained from surrogate decision maker Sedative: etomidate Mg given: 25 Paralytic: rocuronium Mg given: 100 Laryngoscope: fiber optic video scope ET tube size: 7.5 ET tube uncuffed: Yes Tube secured depth (cm): 24 Tube placement confirmation: visualized tube passing through cords, equal breath sounds bilaterally, no breath sounds over epigastrium and confirmation by capnometry Patient tolerated procedure: well EBL(ml): 0 Intubation complications: difficult intubation
[2024-06-22] MEDS: PROPOFOL 1,000 MG IVPB 1,000 MG/100 ML VIAL 3.81 MG IV ×2 (01:30→21:31)
[2024-06-22] MEDS: fentaNYL 2,500 MCG/250 ML BAG 2,500 MCG/250 ML BAG IV (01:30)
--- NOTE | 2024-06-22 01:49 | PD.RESEVENT ---
Documentation for date of: 06/22/24 Event Note Event Note: Patient was maxed out on precedex drip. As pH and CO2 improved, patient became more alert and agitated and again pulled off of her BiPAP mask. Patient was then placed on NC, however was noted to be tachypneic, with use of accessory respiratory muscle use and diaphragmatic breathing. Discussed the patient's clinical status with my attending, who agreed that patient would need to be intubated. Patient was subsequently intubated under the supervision of ED attending Dr. Loreto Pelaez and Dr. Gabino Crook. aJke Padron M.D. Internal Medicine PGY-3
[2024-06-22] MEDS: ALBUTEROL/IPRATROPIUM (Duoneb) RT SOL 3 ML NEBU INH ×6 (02:56→23:18)
[2024-06-22 03:09] LABS: Base Excess -4 (-3-3); HCO3 25 mEq/L (20-26); Inspired Oxygen, FIO2 21 %; O2 Saturation 96 % (91-98); PCO2 61 mmHg (32.0-48.0); PO2 83 mmHg (83-108); pH, Arterial 7.22 (7.35-7.45)
[2024-06-22 03:10] LABS: Allen Test Performed/OK; Puncture Site Right Radial
[2024-06-22 04:14] LABS: Base Excess -1 (-3-3); HCO3 25 mEq/L (20-26); Inspired Oxygen, FIO2 80 %; O2 Saturation 99 % (91-98); PCO2 46 mmHg (32.0-48.0); PO2 96 mmHg (83-108); pH, Arterial 7.35 (7.35-7.45)
[2024-06-22 04:22] LABS: Allen Test Performed/OK; Puncture Site Right Radial
[2024-06-22] MEDS: Norepinephrine/D5W 8mg/250ml 8 MG/250 ML BAG 11.907 MG IV (05:15)
[2024-06-22] MEDS: PIPER/TAZO 3.375 GM 3.375 GM/50 ML BAG IV ×3 (05:44→21:23)
[2024-06-22 06:11] LABS: Basophils # (Auto) 0.1 Thou/mm3 (0.0-0.2); Basophils % (Auto) 0 % (0-2.5); Eosinophils % (Auto) 0 % (0-10); Hemoglobin 11.1 g/dL (12.0-16.0); Immature Granulocytes % (Auto) 1 % (0-0); Immature Granulocytes Auto 0.29 Thou/mm3 (0.00-0.00); Lymphocytes # (Auto) 2.3 Thou/mm3 (1.0-4.8); Lymphocytes % (Auto) 10 % (10-50); Mean Corpuscular HGB Conc 31.7 g/dl (31.0-37.0); Mean Corpuscular Hemoglobin 26.8 pg (25.0-35.0); Mean Corpuscular Volume 85 fL (80-100); Monocytes # (Auto) 0.8 Thou/mm3 (0.0-0.8); Monocytes % (Auto) 4 % (0-12); Neutrophils # (Auto) 18.5 Thou/mm3 (1.8-7.7); Neutrophils % (Auto) 84 % (37-80); Nucleated Red Blood Cell % 0 /100 WBC (0); Platelet Count 270 Thou/mm3 (140-440); RDW Standard Deviation 46.4 fL (36.4-46.3); Red Blood Count 4.14 Miln/mm3 (4.00-5.20)
[2024-06-22] MEDS: INSULIN LISPRO (AdmeLOG) 1 UNIT/0.01 ML UNIT SC ×4 (06:24→23:28)
[2024-06-22 06:47] LABS: Alanine Aminotransferase 18 U/L (10-49); Albumin, Serum 3.5 gm/dL (3.5-5.0); Alkaline Phosphatase 122 U/L (46-116); Anion Gap 11 (7-16); Aspartate Amino Transferase 20 U/L (0-34); BUN/Creatinine Ratio 19 Ratio (12-20); Bilirubin,Total 1.2 mg/dL (0.3-1.2); Blood Urea Nitrogen 29 mg/dL (9-23); Calcium 8.6 mg/dL (8.3-10.6); Carbon Dioxide 21.2 mMol/L (20.0-31.0); Chloride 99 mMol/L (98-107); Creatinine (Component) 1.5 mg/dL (0.6-1.3); Estimated Creatinine Clearance 66.7 mL/min (>60); Globulin 3.4 gm/dL (2.3-3.5); Glucose 345 mg/dL (74-106); Magnesium 1.9 mg/dL (1.6-2.6); Osmolality,Calculated 282 (275-295); Phosphorous 3.9 mg/dL (2.4-5.1); Potassium 4.4 mMol/L (3.4-5.1); Sodium 131 mMol/L (136-145); Thyroid Stimulating Hormone 2.39 uIU/mL (0.55-4.78); Total Protein 6.9 gm/dL (5.7-8.2); eGFR 44 See Note
[2024-06-22] MEDS: PROPOFOL 1,000 MG IVPB 1,000 MG/100 ML VIAL 15.241 MG IV (08:10)
[2024-06-22] MEDS: HEPARIN SOD INJ 5000 UNIT/ML VIAL SC (08:11)
--- NOTE | 2024-06-22 08:23 | ESPR_ITS ---
Documentation for date of: 06/22/24 Subjective Subjective Interval history: This is a 43yo F who was admitted on the for shortness of breath and fever. She was felt to have a pneumonia and started on vancomycin and Zosyn. After admission she was noted to be lethargic and ABG was performed. She was found to have a mild respiratory acidosis and a BiPAP was ordered. Patient was noncompliant with the BiPAP. She was agitated removing the BiPAP. Her overall condition continued to decline at which point in time ICU eval was requested. The patient was felt to be appropriate for intubation and was therefore intubated. She was placed on sedation and given Lasix. She was afebrile overnight. She had a good urinary output after the Lasix. She did have some decrease in her blood pressure requiring vasopressor support briefly. Critical Care Note Critical care time (min.): 45 Exam Vital Signs Temp Pulse Resp BP Pulse Ox O2 Del Method O2 Flow Rate 98.8 F 102 H 28 H 89/66 L 98 Mechanical Ventilation 40 06/22/24 08:00 06/22/24 08:15 06/22/24 06:52 06/22/24 08:15 06/22/24 08:15 06/22/24 08:00 06/21/24 21:05 FiO2 50 06/22/24 08:00 Narrative Exam General-morbidly obese, intubated, sedated, no acute distress HEENT-normocephalic, atraumatic, sclera icteric, pupils are small but reactive, ET tube and OG tube in place Chest-diffuse expiratory wheezes throughout with occasional crackles, heart rate regular rhythmic, no bruits murmurs, no apparent pain on palpation of chest wall Abdomen-obese, soft, nontender, hypoactive bowel sounds no palpable masses Extremities-left BKA, right lower extremity with skin changes consistent with chronic venous stasis, some edema, pulses palpable, no clubbing, no mottling, occasional skin bruising Vent AC/VC Drips Fentanyl Levophed prop Physical Exam Completion Physical Exam Complete?: Yes Objective - [employer] Labs 06/22/24 04:34 06/22/24 04:34 Labs: Laboratory Results - last 24 hr 06/21/24 06/21/24 06/21/24 08:27 08:49 11:51 WBC RBC Hgb Hct MCV MCH MCHC RDW Std Deviation Plt Count Neut % (Auto) Lymph % (Auto) [place] % (Auto) Eos % (Auto) Baso % (Auto) Neut # (Auto) Lymph # (Auto) [place] # (Auto) Eos # (Auto) Baso # (Auto) Immature Gran # (Auto) Absolute Nucleated RBC Immature Gran % Nucleated RBC % Puncture Site ABG pH ABG pCO2 ABG pO2 ABG HCO3 ABG O2 Saturation ABG Base Excess VBG pH 7.39 VBG pCO2 47 VBG pO2 19 VBG O2 Sat (Adarsh) 28 L VBG Base Excess 3 Oxygen Liter Flow FiO2 Sodium Potassium Chloride Carbon Dioxide Anion Gap BUN Creatinine Estim Creat Clear Calc eGFR BUN/Creatinine Ratio Glucose Calculated Osmolality Lactic Acid 3.0 H 3.0 H Calcium Corrected Calcium Phosphorus Magnesium Total Bilirubin AST ALT Alkaline Phosphatase Total Protein Albumin Globulin Albumin/Globulin Ratio Procalcitonin 8.06 H TSH Beta HCG, Quant < 1 Ur Collection Type Clean Catch Urine Color Yellow Urine Clarity Turbid A Urine pH 6.0 Ur Specific [place] 1.022 Urine Protein 1+ A Urine Glucose (UA) 4+ A Urine Ketones Trace Urine Blood Negative Urine Nitrite Negative Urine Bilirubin Negative Urine Urobilinogen (Auto) 2.0 Ur Leukocyte Esterase Positive Urine RBC 14 H Urine WBC 5 Ur Squamous Epith Cells 20 H Urine Bacteria 1+ A Urine Yeast (Budding) Present A Urine Opiates Screen Negative Urine Fentanyl Screen Negative Ur Barbiturates Screen Negative U Amphetamin/Meth Scrn Positive A U Benzodiazepines Scrn Negative U Cocaine Metab Screen Negative U Marijuana (THC) Screen Positive A 06/21/24 06/21/24 06/21/24 15:20 17:30 20:02 WBC RBC Hgb Hct MCV MCH MCHC RDW Std Deviation Plt Count Neut % (Auto) Lymph % (Auto) [place] % (Auto) Eos % (Auto) Baso % (Auto) Neut # (Auto) Lymph # (Auto) [place] # (Auto) Eos # (Auto) Baso # (Auto) Immature Gran # (Auto) Absolute Nucleated RBC Immature Gran % Nucleated RBC % Puncture Site Right Radial Right Radial ABG pH 7.27 L 7.30 L ABG pCO2 54 H 50 H ABG pO2 71 L 82 L ABG HCO3 25 24 ABG O2 Saturation 93 96 ABG Base Excess -3 -2 VBG pH VBG pCO2 VBG pO2 VBG O2 Sat (Adarsh) VBG Base Excess Oxygen Liter Flow 8 FiO2 21 50 Sodium Potassium Chloride Carbon Dioxide Anion Gap BUN Creatinine Estim Creat Clear Calc eGFR BUN/Creatinine Ratio Glucose Calculated Osmolality Lactic Acid 3.8 H Calcium Corrected Calcium Phosphorus Magnesium Total Bilirubin AST ALT Alkaline Phosphatase Total Protein Albumin Globulin Albumin/Globulin Ratio Procalcitonin TSH Beta HCG, Quant Ur Collection Type Urine Color Urine Clarity Urine pH Ur Specific [place] Urine Protein Urine Glucose (UA) Urine Ketones Urine Blood Urine Nitrite Urine Bilirubin Urine Urobilinogen (Auto) Ur Leukocyte Esterase Urine RBC Urine WBC Ur Squamous Epith Cells Urine Bacteria Urine Yeast (Budding) Urine Opiates Screen Urine Fentanyl Screen Ur Barbiturates Screen U Amphetamin/Meth Scrn U Benzodiazepines Scrn U Cocaine Metab Screen U Marijuana (THC) Screen 06/21/24 06/21/24 06/21/24 21:35 21:44 22:41 WBC RBC Hgb Hct MCV MCH MCHC RDW Std Deviation Plt Count Neut % (Auto) Lymph % (Auto) [place] % (Auto) Eos % (Auto) Baso % (Auto) Neut # (Auto) Lymph # (Auto) [place] # (Auto) Eos # (Auto) Baso # (Auto) Immature Gran # (Auto) Absolute Nucleated RBC Immature Gran % Nucleated RBC % Puncture Site Right Radial ABG pH 7.26 L ABG pCO2 56 H ABG pO2 69 L ABG HCO3 25 ABG O2 Saturation 92 ABG Base Excess -3 VBG pH 7.27 L 7.30 L VBG pCO2 53 51 VBG pO2 52 D 55 VBG O2 Sat (Adarsh) 84 L 86 L VBG Base Excess -3 -2 Oxygen Liter Flow FiO2 100 Sodium Potassium Chloride Carbon Dioxide Anion Gap BUN Creatinine Estim Creat Clear Calc eGFR BUN/Creatinine Ratio Glucose Calculated Osmolality Lactic Acid Calcium Corrected Calcium Phosphorus Magnesium Total Bilirubin AST ALT Alkaline Phosphatase Total Protein Albumin Globulin Albumin/Globulin Ratio Procalcitonin TSH Beta HCG, Quant Ur Collection Type Urine Color Urine Clarity Urine pH Ur Specific [place] Urine Protein Urine Glucose (UA) Urine Ketones Urine Blood Urine Nitrite Urine Bilirubin Urine Urobilinogen (Auto) Ur Leukocyte Esterase Urine RBC Urine WBC Ur Squamous Epith Cells Urine Bacteria Urine Yeast (Budding) Urine Opiates Screen Urine Fentanyl Screen Ur Barbiturates Screen U Amphetamin/Meth Scrn U Benzodiazepines Scrn U Cocaine Metab Screen U Marijuana (THC) Screen 06/21/24 06/22/24 06/22/24 23:43 00:42 02:50 WBC RBC Hgb Hct MCV MCH MCHC RDW Std Deviation Plt Count Neut % (Auto) Lymph % (Auto) [place] % (Auto) Eos % (Auto) Baso % (Auto) Neut # (Auto) Lymph # (Auto) [place] # (Auto) Eos # (Auto) Baso # (Auto) Immature Gran # (Auto) Absolute Nucleated RBC Immature Gran % Nucleated RBC % Puncture Site Right Radial Right Radial ABG pH 7.32 L 7.22 L D ABG pCO2 47 61 H D ABG pO2 96 D 83 ABG HCO3 24 25 ABG O2 Saturation 98 96 ABG Base Excess -2 -4 L VBG pH VBG pCO2 VBG pO2 VBG O2 Sat (Adarsh) VBG Base Excess Oxygen Liter Flow 4 FiO2 21 21 Sodium Potassium Chloride Carbon Dioxide Anion Gap BUN Creatinine Estim Creat Clear Calc eGFR BUN/Creatinine Ratio Glucose Calculated Osmolality Lactic Acid 1.6 Calcium Corrected Calcium Phosphorus Magnesium Total Bilirubin AST ALT Alkaline Phosphatase Total Protein Albumin Globulin Albumin/Globulin Ratio Procalcitonin TSH Beta HCG, Quant Ur Collection Type Urine Color Urine Clarity Urine pH Ur Specific [place] Urine Protein Urine Glucose (UA) Urine Ketones Urine Blood Urine Nitrite Urine Bilirubin Urine Urobilinogen (Auto) Ur Leukocyte Esterase Urine RBC Urine WBC Ur Squamous Epith Cells Urine Bacteria Urine Yeast (Budding) Urine Opiates Screen Urine Fentanyl Screen Ur Barbiturates Screen U Amphetamin/Meth Scrn U Benzodiazepines Scrn U Cocaine Metab Screen U Marijuana (THC) Screen 06/22/24 06/22/24 04:08 04:34 WBC 22.0 H RBC 4.14 Hgb 11.1 L Hct 35.0 L MCV 85 MCH 26.8 MCHC 31.7 RDW Std Deviation 46.4 H Plt Count 270 Neut % (Auto) 84 H Lymph % (Auto) 10 [place] % (Auto) 4 Eos % (Auto) 0 Baso % (Auto) 0 Neut # (Auto) 18.5 H Lymph # (Auto) 2.3 [place] # (Auto) 0.8 Eos # (Auto) 0.0 Baso # (Auto) 0.1 Immature Gran # (Auto) 0.29 H Absolute Nucleated RBC 0.00 Immature Gran % 1 H Nucleated RBC % 0 Puncture Site Right Radial ABG pH 7.35 D ABG pCO2 46 D ABG pO2 96 ABG HCO3 25 ABG O2 Saturation 99 H ABG Base Excess -1 VBG pH VBG pCO2 VBG pO2 VBG O2 Sat (Adarsh) VBG Base Excess Oxygen Liter Flow FiO2 80 Sodium 131 L Potassium 4.4 D Chloride 99 Carbon Dioxide 21.2 Anion Gap 11 BUN 29 H Creatinine 1.5 H Estim Creat Clear Calc 66.7 eGFR 44 L BUN/Creatinine Ratio 19 Glucose 345 H Calculated Osmolality 282 Lactic Acid Calcium 8.6 Corrected Calcium 9.0 Phosphorus 3.9 Magnesium 1.9 Total Bilirubin 1.2 AST 20 ALT 18 Alkaline Phosphatase 122 H Total Protein 6.9 Albumin 3.5 D Globulin 3.4 Albumin/Globulin Ratio 1.0 L Procalcitonin TSH 2.39 Beta HCG, Quant Ur Collection Type Urine Color Urine Clarity Urine pH Ur Specific [place] Urine Protein Urine Glucose (UA) Urine Ketones Urine Blood Urine Nitrite Urine Bilirubin Urine Urobilinogen (Auto) Ur Leukocyte Esterase Urine RBC Urine WBC Ur Squamous Epith Cells Urine Bacteria Urine Yeast (Budding) Urine Opiates Screen Urine Fentanyl Screen Ur Barbiturates Screen U Amphetamin/Meth Scrn U Benzodiazepines Scrn U Cocaine Metab Screen U Marijuana (THC) Screen Assessment & Plan Additional Assessment Additional Assessment: In summary this is a 43yo F admitted for acute hypercapneic resp failure a/p [employer] sedated substance abuse- utox pos for meth and cannabis - yesterday evening she was very agitated and unclear if this may be related to withdrawal from meth or acute meth intoxication CV ? CHF- pt with LE edema and increased vasc markings on CXR - obtain echo Hypotension 2/2 sedation- briefly on vasopressors and once sedation decreased BP improved Resp Acute hypercapneic resp failure- intubated and on MV, fu ABG and CXR, adjust as needed - ? underlying COPD with extensive expiratory wheeze-> started on duonebs PNA- dense consolidation seen on CT - on abx - CPT localized to RLL - mucomyst nebs added to duonebs x 24hrs Renal MARCELA- increase from baseline - monitor i/os - ? prerenal v intrarenal - did receive IV contrast and lasix over the last 24hrs GI Cirrhosis- noted on CT - workup as outpt GI proph- PPI Endo DM- SSI, FS q6h Heme Leukocytosis- related to her underlying PNA Anemia- mild, monitor DVT proph- lovenox 40mg q12 ID PNA- on abx case d/w ICU team labs, imaging, records reviewed ~45ccmin required for eval, exam, review, intervention, discussion and formulation of POC for this critically ill pt with acute resp failure at high risk for further and ongoing decompensation Provider Notation Provider Notation: Although this document has been carefully reviewed, there may still be some phonetic and other typographical errors. These errors are purely grammatical due to imperfections in the software program and should not be construed in any way to compromise the substance of the patient's medical care during this visit. Thank you for the opportunity and privilege in assisting you with this patient's care and management.
--- NOTE | 2024-06-22 08:55 | PC.PT ---
Will cancel PT evaluation. Patient was transferred to ICU.
[2024-06-22] MEDS: VANCOMYCIN/NS 1 GM IVPB 200 ML IV ×2 (09:26→21:43)
[2024-06-22] MEDS: Magnesium Sulfate 2 GM Ivpb 2 GM/50 ML BAG IV (09:26)
--- NOTE | 2024-06-22 09:51 | ESPR_ITS ---
<Statement entered by Destinee Braxton DO - 06/22/24 20:50> Senior attestation: Patient was examined and case was reviewed with team including attending physician. Note reviewed, I agree with most of its contents and agree with the patient's care. Overnight patient was noted to be unable to tolerate BiPAP due to agitation, was started on precedex and intubated. This morning patient was on propofol and fentanyl, levophed was also weaned off this morning. RASS goal was adjusted to 0 to assess agitation levels however will not plan for extubation today, will allow for more time for pneumonia improvement to reduce the increased work of breathing that was noted. Echo pending, bedside ultrasound completed revealing IVC ~ 2.3cm. Will continue broad spectrum IV abx with vancomycin and zosyn, DVT prophylaxis changed to lovenox dosed to patient's weight. Destinee Braxton DO PGY-3 Documentation for date of: 06/22/24 Subjective Subjective Interval history: Ms. Nati Mccall is a 43 year old lady with past medical history significant for insulin-dependent diabetes, hypertension and peripheral neuropathy who presented to the ED on 04/21/2025 with a chief complaint of shortness of breath and fever of 2 days duration. Patient was in usual state of health until 2 days prior to presentation when she began to develop shortness of breath associated with productive cough. During this time patient noted she had occasional fevers. Shortness of breath continued to worsen prompting visit to ED. Patient denies nausea, vomiting, chest pain, chills. On exam patient notes right shoulder/back pain, has been present for several days. 06/21/24: Patient was subsequently admitted for sepsis secondary to CAP. Shortly after being admitted, the patient was noted to be lethargic and an ABG was performed which showed pH 7.27/pCO2 54/HCO3 25. The patient was started on BiPAP in an attempt to reduce CO2. After approximately 2 hours after initiating BiPAP a repeat abg showed the pH and CO2 minimally improve to 7.3 and 50 respectively. The patient then became more alert and again removed her BiPAP mask. The patient would not tolerate BiPAP due to feeling claustrophobic and would repeatedly remove the BiPAP mask. The patient was administered Ativan 0.5 mg x 1 to reduce anxiety, however the patient was still noncompliant. She was then placed on restraints with a sitter however became agitated and freed herself from the restraints and again removed her BiPAP. A repeat blood gas showed worsening of her Ph and PCO2, at which time ICU was consulted to admit the patient for possible need for intubation. Patient was then administered Haldol 5mg x 1 to help reduce her agitation and for compliance with the BiPAP. A repeat ABG again showed worsening. Due to still being non-compliant, she was then started on a precedex drip at which point she was sedated enough to comply with the BiPAP. A VBG showed improvement with a pH of 7.30/pCO2 51. 06/22/2024: Patient seen and examined at bedside, overnight was intubated as patient was maxed out on Precedex was agitated and kept removing BiPAP mask. Patient eventually intubated for acute hypercapnic respiratory failure in the ICU, overnight was given Ativan 0.5 mg x 1 and Haldol IV which was not effective to control patient's sedation. Today at bedside patient has GCS of 7T, currently intubated ABG from this morning shows pH of 7.35, patient has extensive right-sided pneumonia and increased work of breathing, will try to wean patient off of sedation with RASS goal of 0. Patient was overnight started on low-dose Levophed, high probability of septic shock due to underlying right lung pneumonia, will titrate patient off pressors today with MAP goal of 65. Patient has pending echo, bedside ultrasound shows JVP 2.3, limited bedside heart ultrasound due to patient's body habitus will continue to monitor JOSÉ LUIS's and patient's urine output. Patient will continue to receive DuoNebs Mucomyst every 4 hour with chest physiotherapy, pending cultures will continue broad coverage with Vanco and Zosyn for now. Patient's DVT prophylaxis changed to Lovenox 40 twice daily, will continue to monitor renal function and urine output. Exam Vital Signs Temp Pulse Resp BP Pulse Ox O2 Del Method O2 Flow Rate 98.8 F 82 28 H 126/71 99 Mechanical Ventilation 40 06/22/24 08:00 06/22/24 09:30 06/22/24 06:52 06/22/24 09:30 06/22/24 09:30 06/22/24 08:00 06/21/24 21:05 FiO2 50 06/22/24 08:00 Narrative Exam Physical Exam General: 43-year-old female, morbidly obese, intubated has OG tube HEENT: Normocephalic, atraumatic, mucous membranes moist, pupils bilaterally reactive Heart: Regular rhythm, tachycardic, no murmurs. Lungs: Normal breath sounds left lung, crackles right lower lung. Abdomen: Soft, obese, nondistended, nontender, positive bowel sounds. Her abdomen scar noted. Neurologic: GCS 7 T, intubated and sedated, responds to sternal rub Extremities: 2+ edema right lower extremity, Left leg below-knee amputation noted Skin: No rash or ecchymoses. Small scab noted on right arm, dry skin bilateral legs. Lines: N/A PIV: Left wrist 18 gauge, Right upper arm 20 gauge Baker: Pure wick Tubes: ET tube, OG tube Drips: Fentanyl, propofol, Levophed Objective Labs 06/22/24 04:34 06/22/24 04:34 Labs: Laboratory Results - last 24 hr 06/21/24 06/21/24 06/21/24 08:27 08:49 11:51 WBC RBC Hgb Hct MCV MCH MCHC RDW Std Deviation Plt Count Neut % (Auto) Lymph % (Auto) [place] % (Auto) Eos % (Auto) Baso % (Auto) Neut # (Auto) Lymph # (Auto) [place] # (Auto) Eos # (Auto) Baso # (Auto) Immature Gran # (Auto) Absolute Nucleated RBC Immature Gran % Nucleated RBC % Puncture Site ABG pH ABG pCO2 ABG pO2 ABG HCO3 ABG O2 Saturation ABG Base Excess VBG pH VBG pCO2 VBG pO2 VBG O2 Sat (Adarsh) VBG Base Excess Oxygen Liter Flow FiO2 Sodium Potassium Chloride Carbon Dioxide Anion Gap BUN Creatinine Estim Creat Clear Calc eGFR BUN/Creatinine Ratio Glucose Calculated Osmolality Lactic Acid 3.0 H Calcium Corrected Calcium Phosphorus Magnesium Total Bilirubin AST ALT Alkaline Phosphatase Total Protein Albumin Globulin Albumin/Globulin Ratio TSH Beta HCG, Quant < 1 Ur Collection Type Clean Catch Urine Color Yellow Urine Clarity Turbid A Urine pH 6.0 Ur Specific [place] 1.022 Urine Protein 1+ A Urine Glucose (UA) 4+ A Urine Ketones Trace Urine Blood Negative Urine Nitrite Negative Urine Bilirubin Negative Urine Urobilinogen (Auto) 2.0 Ur Leukocyte Esterase Positive Urine RBC 14 H Urine WBC 5 Ur Squamous Epith Cells 20 H Urine Bacteria 1+ A Urine Yeast (Budding) Present A Urine Opiates Screen Negative Urine Fentanyl Screen Negative Ur Barbiturates Screen Negative U Amphetamin/Meth Scrn Positive A U Benzodiazepines Scrn Negative U Cocaine Metab Screen Negative U Marijuana (THC) Screen Positive A 06/21/24 06/21/24 06/21/24 15:20 17:30 20:02 WBC RBC Hgb Hct MCV MCH MCHC RDW Std Deviation Plt Count Neut % (Auto) Lymph % (Auto) [place] % (Auto) Eos % (Auto) Baso % (Auto) Neut # (Auto) Lymph # (Auto) [place] # (Auto) Eos # (Auto) Baso # (Auto) Immature Gran # (Auto) Absolute Nucleated RBC Immature Gran % Nucleated RBC % Puncture Site Right Radial Right Radial ABG pH 7.27 L 7.30 L ABG pCO2 54 H 50 H ABG pO2 71 L 82 L ABG HCO3 25 24 ABG O2 Saturation 93 96 ABG Base Excess -3 -2 VBG pH VBG pCO2 VBG pO2 VBG O2 Sat (Adarsh) VBG Base Excess Oxygen Liter Flow 8 FiO2 21 50 Sodium Potassium Chloride Carbon Dioxide Anion Gap BUN Creatinine Estim Creat Clear Calc eGFR BUN/Creatinine Ratio Glucose Calculated Osmolality Lactic Acid 3.8 H Calcium Corrected Calcium Phosphorus Magnesium Total Bilirubin AST ALT Alkaline Phosphatase Total Protein Albumin Globulin Albumin/Globulin Ratio TSH Beta HCG, Quant Ur Collection Type Urine Color Urine Clarity Urine pH Ur Specific [place] Urine Protein Urine Glucose (UA) Urine Ketones Urine Blood Urine Nitrite Urine Bilirubin Urine Urobilinogen (Auto) Ur Leukocyte Esterase Urine RBC Urine WBC Ur Squamous Epith Cells Urine Bacteria Urine Yeast (Budding) Urine Opiates Screen Urine Fentanyl Screen Ur Barbiturates Screen U Amphetamin/Meth Scrn U Benzodiazepines Scrn U Cocaine Metab Screen U Marijuana (THC) Screen 06/21/24 06/21/24 06/21/24 21:35 21:44 22:41 WBC RBC Hgb Hct MCV MCH MCHC RDW Std Deviation Plt Count Neut % (Auto) Lymph % (Auto) [place] % (Auto) Eos % (Auto) Baso % (Auto) Neut # (Auto) Lymph # (Auto) [place] # (Auto) Eos # (Auto) Baso # (Auto) Immature Gran # (Auto) Absolute Nucleated RBC Immature Gran % Nucleated RBC % Puncture Site Right Radial ABG pH 7.26 L ABG pCO2 56 H ABG pO2 69 L ABG HCO3 25 ABG O2 Saturation 92 ABG Base Excess -3 VBG pH 7.27 L 7.30 L VBG pCO2 53 51 VBG pO2 52 D 55 VBG O2 Sat (Adarsh) 84 L 86 L VBG Base Excess -3 -2 Oxygen Liter Flow FiO2 100 Sodium Potassium Chloride Carbon Dioxide Anion Gap BUN Creatinine Estim Creat Clear Calc eGFR BUN/Creatinine Ratio Glucose Calculated Osmolality Lactic Acid Calcium Corrected Calcium Phosphorus Magnesium Total Bilirubin AST ALT Alkaline Phosphatase Total Protein Albumin Globulin Albumin/Globulin Ratio TSH Beta HCG, Quant Ur Collection Type Urine Color Urine Clarity Urine pH Ur Specific [place] Urine Protein Urine Glucose (UA) Urine Ketones Urine Blood Urine Nitrite Urine Bilirubin Urine Urobilinogen (Auto) Ur Leukocyte Esterase Urine RBC Urine WBC Ur Squamous Epith Cells Urine Bacteria Urine Yeast (Budding) Urine Opiates Screen Urine Fentanyl Screen Ur Barbiturates Screen U Amphetamin/Meth Scrn U Benzodiazepines Scrn U Cocaine Metab Screen U Marijuana (THC) Screen 06/21/24 06/22/24 06/22/24 23:43 00:42 02:50 WBC RBC Hgb Hct MCV MCH MCHC RDW Std Deviation Plt Count Neut % (Auto) Lymph % (Auto) [place] % (Auto) Eos % (Auto) Baso % (Auto) Neut # (Auto) Lymph # (Auto) [place] # (Auto) Eos # (Auto) Baso # (Auto) Immature Gran # (Auto) Absolute Nucleated RBC Immature Gran % Nucleated RBC % Puncture Site Right Radial Right Radial ABG pH 7.32 L 7.22 L D ABG pCO2 47 61 H D ABG pO2 96 D 83 ABG HCO3 24 25 ABG O2 Saturation 98 96 ABG Base Excess -2 -4 L VBG pH VBG pCO2 VBG pO2 VBG O2 Sat (Adarsh) VBG Base Excess Oxygen Liter Flow 4 FiO2 21 21 Sodium Potassium Chloride Carbon Dioxide Anion Gap BUN Creatinine Estim Creat Clear Calc eGFR BUN/Creatinine Ratio Glucose Calculated Osmolality Lactic Acid 1.6 Calcium Corrected Calcium Phosphorus Magnesium Total Bilirubin AST ALT Alkaline Phosphatase Total Protein Albumin Globulin Albumin/Globulin Ratio TSH Beta HCG, Quant Ur Collection Type Urine Color Urine Clarity Urine pH Ur Specific [place] Urine Protein Urine Glucose (UA) Urine Ketones Urine Blood Urine Nitrite Urine Bilirubin Urine Urobilinogen (Auto) Ur Leukocyte Esterase Urine RBC Urine WBC Ur Squamous Epith Cells Urine Bacteria Urine Yeast (Budding) Urine Opiates Screen Urine Fentanyl Screen Ur Barbiturates Screen U Amphetamin/Meth Scrn U Benzodiazepines Scrn U Cocaine Metab Screen U Marijuana (THC) Screen 06/22/24 06/22/24 04:08 04:34 WBC 22.0 H RBC 4.14 Hgb 11.1 L Hct 35.0 L MCV 85 MCH 26.8 MCHC 31.7 RDW Std Deviation 46.4 H Plt Count 270 Neut % (Auto) 84 H Lymph % (Auto) 10 [place] % (Auto) 4 Eos % (Auto) 0 Baso % (Auto) 0 Neut # (Auto) 18.5 H Lymph # (Auto) 2.3 [place] # (Auto) 0.8 Eos # (Auto) 0.0 Baso # (Auto) 0.1 Immature Gran # (Auto) 0.29 H Absolute Nucleated RBC 0.00 Immature Gran % 1 H Nucleated RBC % 0 Puncture Site Right Radial ABG pH 7.35 D ABG pCO2 46 D ABG pO2 96 ABG HCO3 25 ABG O2 Saturation 99 H ABG Base Excess -1 VBG pH VBG pCO2 VBG pO2 VBG O2 Sat (Adarsh) VBG Base Excess Oxygen Liter Flow FiO2 80 Sodium 131 L Potassium 4.4 D Chloride 99 Carbon Dioxide 21.2 Anion Gap 11 BUN 29 H Creatinine 1.5 H Estim Creat Clear Calc 66.7 eGFR 44 L BUN/Creatinine Ratio 19 Glucose 345 H Calculated Osmolality 282 Lactic Acid Calcium 8.6 Corrected Calcium 9.0 Phosphorus 3.9 Magnesium 1.9 Total Bilirubin 1.2 AST 20 ALT 18 Alkaline Phosphatase 122 H Total Protein 6.9 Albumin 3.5 D Globulin 3.4 Albumin/Globulin Ratio 1.0 L TSH 2.39 Beta HCG, Quant Ur Collection Type Urine Color Urine Clarity Urine pH Ur Specific [place] Urine Protein Urine Glucose (UA) Urine Ketones Urine Blood Urine Nitrite Urine Bilirubin Urine Urobilinogen (Auto) Ur Leukocyte Esterase Urine RBC Urine WBC Ur Squamous Epith Cells Urine Bacteria Urine Yeast (Budding) Urine Opiates Screen Urine Fentanyl Screen Ur Barbiturates Screen U Amphetamin/Meth Scrn U Benzodiazepines Scrn U Cocaine Metab Screen U Marijuana (THC) Screen ABG Interpretation ABG results: 06/21/24 06/21/24 06/21/24 08:27 17:30 20:02 ABG pH 7.27 L 7.30 L ABG pCO2 54 H 50 H ABG pO2 71 L 82 L ABG HCO3 25 24 ABG O2 Saturation 93 96 ABG Base Excess -3 -2 VBG pH 7.39 VBG pCO2 47 VBG pO2 19 VBG Base Excess 3 06/21/24 06/21/24 06/21/24 21:35 21:44 22:41 ABG pH 7.26 L ABG pCO2 56 H ABG pO2 69 L ABG HCO3 25 ABG O2 Saturation 92 ABG Base Excess -3 VBG pH 7.27 L 7.30 L VBG pCO2 53 51 VBG pO2 52 D 55 VBG Base Excess -3 -2 06/22/24 06/22/24 06/22/24 00:42 02:50 04:08 ABG pH 7.32 L 7.22 L D 7.35 D ABG pCO2 47 61 H D 46 D ABG pO2 96 D 83 96 ABG HCO3 24 25 25 ABG O2 Saturation 98 96 99 H ABG Base Excess -2 -4 L -1 VBG pH VBG pCO2 VBG pO2 VBG Base Excess Quality Measures Quality Measures sepsis Current suspected stage: septic shock (LA >4 and/or hypotension) IVF 30 ml/kg given for lactic acid >4 and/or hypotension: yes Vasopressors initiated: Yes Sepsis reassessment completed at (date): 06/22/24 Sepsis reassessment completed at (time): 07:00 Possible source: pulmonary Blood cultures ordered: yes Antibiotic ordered: Yes Assessment & Plan Assessment Current Active Medications: Generic Name Dose Route Start Last Admin Trade Name Freq PRN Reason Stop Dose Admin Acetaminophen 650 mg 06/21/24 11:10 Acetaminophen 325 Mg Tablet PO 07/21/24 11:09 Q6H PRN PAIN SCALE 1-3 (mild Hydrocodone Bitart/Acetaminophen 1 tab 06/21/24 13:33 Hydrocodone/Apap 5/325 Tablet PO 06/26/24 13:32 Q4HR PRN PAIN SCALE 4-10(Mod-Sev Acetylcysteine 3 ml 06/22/24 11:00 Acetylcysteine Melina 20% 4 Ml Nebu INH 07/22/24 10:59 Q4HRRT PATSY Albuterol/Ipratropium 3 ml 06/21/24 17:25 06/22/24 06:42 Albuterol/Ipratropium (Duoneb) Rt Melina 3 Ml Nebu INH 07/21/24 17:24 3 ml Q4HRRT PATSY Administration Benzonatate 100 mg 06/21/24 14:52 Benzonatate 100 Mg Capsule PO 07/21/24 14:51 Q8HR PRN COUGH Protocol Dextrose 25 ml 06/21/24 13:25 Dextrose 50%-Water Inj 50 Ml Syringe IV 07/21/24 13:24 Q15MIN PRN BG 50-70 responsive npo pt Dextrose 50 ml 06/21/24 13:25 Dextrose 50%-Water Inj 50 Ml Syringe IV 07/21/24 13:24 Q15MIN PRN BG <50 OR BG <70 & pt unresponsive Enoxaparin Sodium 40 mg 06/22/24 21:00 Enoxaparin Sod Inj 40 Mg/0.4 Ml Syringe SC 07/06/24 20:59 BID PATSY Glucagon 1 mg 06/21/24 13:25 Glucagon Inj 1 Mg Vial IM Q15MIN PRN BG <70, and no IV access Guaifenesin/Dextromethorphan 1 each 06/21/24 11:13 Guaifenesin/Dm Tablet PO 07/21/24 11:12 Q4HR PRN COUGH Protocol Piperacillin/Tazobactam/Dextrose 3.375 gm in 50 mls @ 12.5 mls/hr 06/21/24 14:00 06/22/24 05:44 Zosyn IV 06/28/24 13:59 12.5 mls/hr Q8HR PATSY Administration Norepinephrine/Dextrose 8 mg in 250 mls @ 11.907 mls/hr 06/22/24 05:16 06/22/24 08:21 Levophed In D5w 8mg/250ml IV 07/22/24 05:15 0 mcg/kg/min .Q21H PRN 0 mls/hr PER PROTOCOL Titration Protocol 0.05 MCG/KG/MIN Vancomycin/Sodium Chloride 200 mls @ 120 mls/hr 06/22/24 10:00 06/22/24 09:26 Vancomycin/Ns 1 Gm Ivpb IV 06/29/24 09:59 120 mls/hr BID@1000,2200 PATSY Administration Protocol Magnesium Sulfate 2 gm in 50 mls @ 25 mls/hr 06/22/24 09:02 06/22/24 09:26 Magnesium Sulfate Ivpb IV 06/22/24 11:01 25 mls/hr X1 ONE Administration Fentanyl Citrate 2,500 mcg in 250 mls @ 2.5 mls/hr 06/22/24 09:08 Sublimaze Inj 2,500 Mcg/250 Ml Bag IV 06/27/24 01:29 .Q24H PRN PER PROTOCOL Protocol 25 MCG/HR Propofol 1,000 mg in 100 mls @ 3.81 mls/hr 06/22/24 09:09 Diprivan Ivpb IV 07/22/24 01:29 .Q24H PRN PER PROTOCOL Protocol 5 MCG/KG/MIN Insulin Glargine 15 unit 06/21/24 21:00 06/21/24 21:18 Insulin Glargine (Lantus) 5 Unit/0.05 Ml (Per 5 Units) SC 07/21/24 20:59 15 unit HS PATSY Administration Insulin Human Lispro 0 unit 06/22/24 06:00 06/22/24 06:24 Insulin Lispro (Admelog) 1 Unit/0.01 Ml Unit SC 07/22/24 05:59 6 unit Q6HR PATSY Administration Protocol Ondansetron HCl 4 mg 06/21/24 11:10 Ondansetron Inj 2 Mg/Ml Inj 2 Ml IV 07/21/24 11:09 Q6H PRN NAUSEA OR VOMITING Protocol Pharmacy Consult 1 each 06/22/24 09:00 Vancomycin Pharmacy To Dose 1 Each Each IV 07/22/24 08:59 QDAY PRN CONSULT Pharmacy Consult 1 each 06/21/24 13:29 Pharmacy Renal Dose Adjustment 1 Ea XX 07/21/24 13:28 PRN PRN CONSULT Plan Assessment & Plan Neurological #Methamphetamine intoxication versus withdrawal #Methamphetamine dependence #Agitated Patient became acutely agitated due to claustrophobia from BiPAP mask. Patient was repeatedly removing mask resulting in worsening of her Hypercapnic respiratory failure. A trial of ativan and Haldol were administered in an attempt to reduce her anxiety and agitation, however were inaffective. Patient was then placed on a precedex drip for sedation at which point the patient was sedated enough to comply with the BiPAP mask. Patient was maxed out on Precedex drip still was agitated eventually decision was made to intubate and sedate the patient overnight. Management: - Intubated and mechanically ventilated - Patient off sedation Fentanyl and propofol - RASS goal: 0 - Will consider social media executive consult for methamphetamine use Cardiology #Shock Differential diagnosis: Distributive shock (high probability of septic shock, underlying source right lung pneumonia, less likely anaphylactic/neurogenic) Obstructive shock ruled out PE, CTA was negative, chest x-ray normal, ruled out tension pneumo, ordered echo to rule out cardiac tamponade Cardiogenic shock patient has history of meth use, troponin negative, EKG unremarkable, pending echo Hypovolemic shock patient received 3 L IV fluid in ED, bedside JVP 2.3, ruled out hypovolemic shock Management: -Patient started on Levophed overnight, will titrate down to MAP more than 65 -Patient received IV fluids per sepsis protocol, will continue to monitor -Will treat underlying pneumonia -Follow echocardiogram # Lower extremity edema Patient has history of meth use, concern of heart failure due to meth Echo from 4 years ago shows no sign of heart failure EF is normal Will follow echocardiogram Pulmonary #Acute Hypercapnic Respiratory failure #Status post Intubation Patient intubated due to acute hypercapnic respiratory failure and noncompliance with BiPAP Currently on mechanical ventilation, goal tidal volume for 6 to 7 cc/kg is 330- 380 This a.m. patient's VT 400, RR 28, PEEP 8 FiO2 50 Will continue mechanical ventilation # Extensive right lung pneumonia # Bibasilar pneumonia # Concern of COPD Patient was started on vancomycin and Zosyn, will continue Pending blood culture, MRSA nares, sputum culture Will optimize antibiotic therapy once cultures have resulted Continue DuoNeb/Mucomyst every 4 hours Chest physiotherapy every 4 hours #Hypertension, patient history Patient has history as stated. Patient BP initially elevated, decreased rapidly in ED. Hold antihypertensive medications in setting of shock Gastrointestinal #Elevated Alk phos #Hyperbilirubinemia, resolved #Hepatomegaly #Gallstones Patient on no right upper quadrant tenderness, currently sedated will continue to monitor Monitor CMP in a.m. GI prophylaxis: Protonix IVP Renal/Genitourinary #Acute Kidney Injury Patient has a mild MARCELA. BUN 22, creatinine 1.3, EGFR 52. -Avoid nephrotoxins -Renally dose meds -Monitor daily renal function -For essential medications that are renally cleared, adjust dosing daily -Avoid Iodinated contrast media to prevent contrast induced nephropathy -Avoid Gadolinium-based contrast agents to prevent?nephrogenic systemic fibrosis -Avoid Nephrotoxic medications and drugs that may have a detrimental effect on glomerular pefusion -Continue fluid resuscitation with NS mls/h Endocrine #Diabetes, insulin-dependent Patient has history of diabetes requiring home insulin use. HA1C 11.6% as of 05/12/2024. -Lantus 15 units daily -Sliding scale insulin every 6 hours -Increase to every 6 hours -Goal blood glucose level 140-200 Hematology # Leukocytosis Will treat underlying cause # Normocytic normochromic anemia We will continue to monitor DVT prophylaxis: Lovenox 40 every 12 hours Infectious Disease #Sepsis secondary to CAP versus UTI Patient presented with chief complaint shortness of breath and fever at home. Patient found to be septic: Heart rate 130, respirations 25, WBCs 26. Chest x- ray showed right base pneumonia. Lactic acid 3.0, increased to 3.8. Patient was unable to receive IV fluids for extended period of time due to difficulty getting peripheral IV. 2 peripheral IVs successfully placed. Blood and urine cultures drawn. Pro-Lyndon 8.06. Requiring O2 to maintain saturations, On room air at baseline. Patient recieved 3L IVF and maintenence fluids which may have exacerbated her respiratory distress. Patient met SIRS criteria (WBC 41.4, Pulse 126, RR 20) with 2 suspected sources of Pneumonia and UTI as evidenced on Chest/Abdomen/Pelvis CT. Patient received 30 cc/kg and IV antibiotics vancomycin and Zosyn in the ED. Lactic Acid: 2.0, Procalcitonin 12.08 -Blood and urine cultures pending -O2, titrate as needed -Cocci, flu test ordered, follow-up Antibiotic regimen: -Vanco pharmacy dosing (06/21-) -Zosyn 3.375 g IV every 8 hours (06/21-) Skin - no acute issues, no evidence of skin breakdown DVT prophylaxis: Lovenox 40 IV twice daily GI prophylaxis: IV Protonix Diet: N.p.o. Lines: Peripheral IV Code status: Full code Case discussed with Attending Dr. Sanches and Dr. Hensley PGY3. Jennifer Feliciano PGY1 Disclaimer: This note was dictated by speech recognition. Minor errors in freight car cleaner delta system may be present due to voice recognition software.
[2024-06-22] MEDS: ACETYLCYSTEINE SOL 20% 4 ML NEBU 3 ML INH ×4 (10:31→23:18)
[2024-06-22 14:21] LABS: Cocci Serology, IgM Positive (Negative)
[2024-06-22 14:22] LABS: Cocid Sro, CF/ID (UCD) NO CHG* See Sep Rpt
--- NOTE | 2024-06-22 14:29 | PC.NURSE ---
Pt's mother Shelley came by to visit, pt at the time was completely off sedation medication and staying very calm. When mother started to ask her questions and waking her up patient became combative. She was pulling on restraints, trying to sit up in bed, pulling on ventilator by turning head rapidly from side to side, she was mouthing words to take tube out. Nurse reminded pt to keep calm and the risk of pulling tube on her own. Emergency titration initiated for risk of self extubation. Family was asked to step outside until pt settles down, family complied with request. Nurse will update family with any updates.
--- NOTE | 2024-06-22 15:27 | PC.SS ---
Update: Patient is intubated/sedated. Plan is to attempt extubation tomorrow. No feedings. No pressor support. No skin issues present.
[2024-06-22] MEDS: INSULIN GLARGINE (Lantus) 5 UNIT/0.05 ML (PER 5 UNITS) 15 UNIT SC (20:29)
[2024-06-22] MEDS: ENOXAPARIN SOD INJ 40 MG/0.4 ML SYRINGE SC (20:30)
[2024-06-22 21:40] LABS: Vancomycin,Trough 16.6 mcg/mL (5.0-10.0)
[2024-06-23] VITALS (50 sets, daily range): BP systolic 103–191; BP diastolic 67–103; PULSE 87–106; RESP 17–96; TEMP 36.1–37.4; O2SAT 92–100; BMI 52.4
[2024-06-23] MEDS: ACETYLCYSTEINE SOL 20% 4 ML NEBU 3 ML INH ×5 (02:23→22:29)
[2024-06-23] MEDS: ALBUTEROL/IPRATROPIUM (Duoneb) RT SOL 3 ML NEBU INH ×6 (02:23→22:29)
[2024-06-23 04:17] LABS: Base Excess 1 (-3-3); HCO3 26 mEq/L (20-26); Inspired Oxygen, FIO2 40 %; O2 Saturation 98 % (91-98); PCO2 44 mmHg (32.0-48.0); PO2 96 mmHg (83-108); pH, Arterial 7.38 (7.35-7.45)
[2024-06-23 04:21] LABS: Allen Test Performed/OK; Puncture Site Right Radial
--- NOTE | 2024-06-23 05:00 | XR_ITS ---
Examination: AP chest single view Technique one AP portable semiupright chest single view Exam date and time: June 23, 2024 [id number] hours Comparison June 22, 2024 INDICATIONS: Hypoxic respiratory failure postintubation, significant bilateral pneumonia on chest film June 22, 2024 FINDINGS: Bilateral pneumonia, diffuse in the right lung and significant at the left base No major cardiac enlargement Endotracheal tube tip projects approximately 17 mm above leyla The orogastric tube is in the stomach, the tip is below the level of the film IMPRESSION: Significant bilateral pneumonia The endotracheal tube tip index 17 mm above the leyla
[2024-06-23 05:52] LABS: Basophils # (Auto) 0.1 Thou/mm3 (0.0-0.2); Basophils % (Auto) 1 % (0-2.5); Eosinophils # (Auto) 0.1 Thou/mm3 (0.0-0.5); Eosinophils % (Auto) 0 % (0-10); Hemoglobin 10.6 g/dL (12.0-16.0); Immature Granulocytes % (Auto) 1 % (0-0); Immature Granulocytes Auto 0.14 Thou/mm3 (0.00-0.00); Lymphocytes % (Auto) 10 % (10-50); Mean Corpuscular HGB Conc 32.1 g/dl (31.0-37.0); Mean Corpuscular Hemoglobin 26.6 pg (25.0-35.0); Mean Corpuscular Volume 83 fL (80-100); Monocytes # (Auto) 1.1 Thou/mm3 (0.0-0.8); Monocytes % (Auto) 6 % (0-12); Neutrophils # (Auto) 15.6 Thou/mm3 (1.8-7.7); Neutrophils % (Auto) 83 % (37-80); Nucleated Red Blood Cell % 0 /100 WBC (0); Platelet Count 278 Thou/mm3 (140-440); RDW Standard Deviation 45.5 fL (36.4-46.3); Red Blood Count 3.99 Miln/mm3 (4.00-5.20)
[2024-06-23] MEDS: INSULIN LISPRO (AdmeLOG) 1 UNIT/0.01 ML UNIT SC ×4 (06:17→23:43)
[2024-06-23] MEDS: PIPER/TAZO 3.375 GM 3.375 GM/50 ML BAG IV ×3 (06:18→21:13)
[2024-06-23 06:57] LABS: Alanine Aminotransferase 14 U/L (10-49); Albumin, Serum 3.4 gm/dL (3.5-5.0); Alkaline Phosphatase 198 U/L (46-116); Anion Gap 9 (7-16); Aspartate Amino Transferase 19 U/L (0-34); BUN/Creatinine Ratio 29 Ratio (12-20); Blood Urea Nitrogen 29 mg/dL (9-23); Calcium 8.8 mg/dL (8.3-10.6); Calcium (Corrected) 9.3 mg/dL (8.5-10.1); Carbon Dioxide 25.7 mMol/L (20.0-31.0); Chloride 101 mMol/L (98-107); Globulin 3.4 gm/dL (2.3-3.5); Glucose 238 mg/dL (74-106); Magnesium 2.2 mg/dL (1.6-2.6); Osmolality,Calculated 285 (275-295); Phosphorous 2.4 mg/dL (2.4-5.1); Potassium 3.6 mMol/L (3.4-5.1); Sodium 136 mMol/L (136-145); Total Protein 6.8 gm/dL (5.7-8.2); eGFR > 60 See Note
[2024-06-23 07:24] LABS: Estimated Creatinine Clearance 99.4 mL/min (>60)
[2024-06-23] MEDS: ENOXAPARIN SOD INJ 40 MG/0.4 ML SYRINGE SC ×2 (08:31→21:13)
[2024-06-23] MEDS: PANTOPRAZOLE INJ 40 MG VIAL IVP (08:31)
[2024-06-23] MEDS: VANCOMYCIN/NS 1 GM IVPB 200 ML IV (10:43)
[2024-06-23] MEDS: FLUCONAZOLE/NS 400 MG IVPB 800 MG/400 ML BAG 100 MG IV (10:47)
[2024-06-23] MEDS: PROPOFOL 1,000 MG IVPB 1,000 MG/100 ML VIAL 11.431 MG IV (11:24)
[2024-06-23] MEDS: fentaNYL 2,500 MCG/250 ML BAG 2,500 MCG/250 ML BAG 7.5 MCG IV (12:26)
[2024-06-23 12:36] LABS: Triglycerides 186 mg/dL (30-150)
--- NOTE | 2024-06-23 13:01 | PC.DIETICIAN ---
Nutrition prescription Vital 1.2 AF at 20 ml/hr via OG tube by pump. Advance 10 ml every 8 hrs to goal rate of 60 ml/hr x 24 hrs. If no IV fluids, water flushes of 25 ml/hr (or per MD).
--- NOTE | 2024-06-23 13:56 | ESPR_ITS ---
<Statement entered by Destinee Braxton DO - 06/23/24 16:03> Senior attestation: Patient was examined and case was reviewed with team including attending physician. Note reviewed, I agree with most of its contents and agree with the patient's care. Overnight patient was noted to be agitated, RASS gaol on sedatives was adjusted to -2. Today, patient was able to follow commands and SBT was pursued after repeat ABGs were completed, was extubated in the late afternoon onto BiPAP. Cocci IgM results positive today, will start fluconazole. Urine cultures reveal ESBL E Coli, will continue vancomycin and zoysn, MRSA nasal screen pending. Trickle feeds started, associate dean recommendations pending. Insulin dosing adjusted given hyperglycemia findings. Will observe in ICU post extubation today. Destinee Braxton DO PGY-3 Documentation for date of: 06/23/24 Subjective Subjective Interval history: Ms. Nati Mccall is a 43 year old lady with past medical history significant for insulin-dependent diabetes, hypertension and peripheral neuropathy who presented to the ED on 04/21/2025 with a chief complaint of shortness of breath and fever of 2 days duration. Patient was in usual state of health until 2 days prior to presentation when she began to develop shortness of breath associated with productive cough. During this time patient noted she had occasional fevers. Shortness of breath continued to worsen prompting visit to ED. Patient denies nausea, vomiting, chest pain, chills. On exam patient notes right shoulder/back pain, has been present for several days. 06/21/24: Patient was subsequently admitted for sepsis secondary to CAP. Shortly after being admitted, the patient was noted to be lethargic and an ABG was performed which showed pH 7.27/pCO2 54/HCO3 25. The patient was started on BiPAP in an attempt to reduce CO2. After approximately 2 hours after initiating BiPAP a repeat abg showed the pH and CO2 minimally improve to 7.3 and 50 respectively. The patient then became more alert and again removed her BiPAP mask. The patient would not tolerate BiPAP due to feeling claustrophobic and would repeatedly remove the BiPAP mask. The patient was administered Ativan 0.5 mg x 1 to reduce anxiety, however the patient was still noncompliant. She was then placed on restraints with a sitter however became agitated and freed herself from the restraints and again removed her BiPAP. A repeat blood gas showed worsening of her Ph and PCO2, at which time ICU was consulted to admit the patient for possible need for intubation. Patient was then administered Haldol 5mg x 1 to help reduce her agitation and for compliance with the BiPAP. A repeat ABG again showed worsening. Due to still being non-compliant, she was then started on a precedex drip at which point she was sedated enough to comply with the BiPAP. A VBG showed improvement with a pH of 7.30/pCO2 51. 06/22/2024: Patient seen and examined at bedside, overnight was intubated as patient was maxed out on Precedex was agitated and kept removing BiPAP mask. Patient eventually intubated for acute hypercapnic respiratory failure in the ICU, overnight was given Ativan 0.5 mg x 1 and Haldol IV which was not effective to control patient's sedation. Today at bedside patient has GCS of 7T, currently intubated ABG from this morning shows pH of 7.35, patient has extensive right-sided pneumonia and increased work of breathing, will try to wean patient off of sedation with RASS goal of 0. Patient was overnight started on low-dose Levophed, high probability of septic shock due to underlying right lung pneumonia, will titrate patient off pressors today with MAP goal of 65. Patient has pending echo, bedside ultrasound shows JVP 2.3, limited bedside heart ultrasound due to patient's body habitus will continue to monitor JOSÉ LUIS's and patient's urine output. Patient will continue to receive DuoNebs Mucomyst every 4 hour with chest physiotherapy, pending cultures will continue broad coverage with Vanco and Zosyn for now. Patient's DVT prophylaxis changed to Lovenox 40 twice daily, will continue to monitor renal function and urine output. 06/23/2024: Patient seen and examined at bedside, overnight patient was agitated, RASS score was changed to -2, patient had good urine output. Patient follows commands, responsive, will continue to wean patient off sedation. Patient's respiratory rate on mechanical ventilator is around 30, will titrate down rate to 16-18 with goal minute ventilation, will repeat ABG later today after ventilator changes. Patient's cocci IgM positive, patient started on fluconazole, pending MRSA nares, urine culture shows ESBL E. coli sensitive to Zosyn, will continue vancomycin and Zosyn. Echocardiogram pending, bedside echo limited due to patient's body habitus. Will hold diuresis for now, patient continues to have 2+ lower extremity edema, monitoring intake and output. Will start patient on trickle feeds today, pending dietitian recommendations. Patient's insulin regimen optimized to keep blood sugar within goal of 1 40-200. Exam Vital Signs Temp Pulse Resp BP Pulse Ox O2 Del Method O2 Flow Rate 99.3 F 98 17 157/80 H 97 Mechanical Ventilation 40 06/23/24 12:00 06/23/24 13:00 06/23/24 11:06 06/23/24 13:00 06/23/24 13:00 06/23/24 12:00 06/21/24 21:05 FiO2 30 06/23/24 12:00 Narrative Exam Physical Exam General: 43-year-old female, morbidly obese, intubated has OG tube HEENT: Normocephalic, atraumatic, mucous membranes moist, pupils bilaterally reactive Heart: Regular rhythm, tachycardic, no murmurs. Lungs: Normal breath sounds left lung, crackles right lower lung. Abdomen: Soft, obese, nondistended, nontender, positive bowel sounds. Her abdomen scar noted. Neurologic: GCS 11T, intubated and sedated, responds to commands Extremities: 2+ edema right lower extremity, Left leg below-knee amputation noted Skin: No rash or ecchymoses. Small scab noted on right arm, dry skin bilateral legs. Lines: N/A PIV: Left wrist 18 gauge, Right upper arm 20 gauge Baker: Pure wick Tubes: ET tube, OG tube Drips: Fentanyl, propofol Objective Labs 06/23/24 04:30 06/23/24 04:30 Labs: Laboratory Results - last 24 hr 06/22/24 06/22/24 06/23/24 00:00 21:07 04:07 WBC RBC Hgb Hct MCV MCH MCHC RDW Std Deviation Plt Count Neut % (Auto) Lymph % (Auto) [place] % (Auto) Eos % (Auto) Baso % (Auto) Neut # (Auto) Lymph # (Auto) [place] # (Auto) Eos # (Auto) Baso # (Auto) Immature Gran # (Auto) Absolute Nucleated RBC Immature Gran % Nucleated RBC % Puncture Site Right Radial ABG pH 7.38 ABG pCO2 44 ABG pO2 96 ABG HCO3 26 ABG O2 Saturation 98 ABG Base Excess 1 FiO2 40 Sodium Potassium Chloride Carbon Dioxide Anion Gap BUN Creatinine Estim Creat Clear Calc eGFR BUN/Creatinine Ratio Glucose Calculated Osmolality Calcium Corrected Calcium Phosphorus Magnesium Total Bilirubin AST ALT Alkaline Phosphatase Total Protein Albumin Globulin Albumin/Globulin Ratio Triglycerides Vancomycin Trough 16.6 H Coccidioides IgM Ab Positive A 06/23/24 04:30 WBC 19.0 H RBC 3.99 L Hgb 10.6 L Hct 33.0 L MCV 83 MCH 26.6 MCHC 32.1 RDW Std Deviation 45.5 Plt Count 278 Neut % (Auto) 83 H Lymph % (Auto) 10 [place] % (Auto) 6 Eos % (Auto) 0 Baso % (Auto) 1 Neut # (Auto) 15.6 H Lymph # (Auto) 2.0 [place] # (Auto) 1.1 H Eos # (Auto) 0.1 Baso # (Auto) 0.1 Immature Gran # (Auto) 0.14 H Absolute Nucleated RBC 0.00 Immature Gran % 1 H Nucleated RBC % 0 Puncture Site ABG pH ABG pCO2 ABG pO2 ABG HCO3 ABG O2 Saturation ABG Base Excess FiO2 Sodium 136 Potassium 3.6 D Chloride 101 Carbon Dioxide 25.7 Anion Gap 9 BUN 29 H Creatinine 1.0 D Estim Creat Clear Calc 99.4 eGFR > 60 BUN/Creatinine Ratio 29 H Glucose 238 H D Calculated Osmolality 285 Calcium 8.8 Corrected Calcium 9.3 Phosphorus 2.4 Magnesium 2.2 Total Bilirubin 1.0 AST 19 ALT 14 Alkaline Phosphatase 198 H D Total Protein 6.8 Albumin 3.4 L Globulin 3.4 Albumin/Globulin Ratio 1.0 L Triglycerides 186 H Vancomycin Trough Coccidioides IgM Ab ABG Interpretation ABG results: 06/21/24 06/21/24 06/21/24 08:27 17:30 20:02 ABG pH 7.27 L 7.30 L ABG pCO2 54 H 50 H ABG pO2 71 L 82 L ABG HCO3 25 24 ABG O2 Saturation 93 96 ABG Base Excess -3 -2 VBG pH 7.39 VBG pCO2 47 VBG pO2 19 VBG Base Excess 3 06/21/24 06/21/24 06/21/24 21:35 21:44 22:41 ABG pH 7.26 L ABG pCO2 56 H ABG pO2 69 L ABG HCO3 25 ABG O2 Saturation 92 ABG Base Excess -3 VBG pH 7.27 L 7.30 L VBG pCO2 53 51 VBG pO2 52 D 55 VBG Base Excess -3 -2 06/22/24 06/22/24 06/22/24 00:42 02:50 04:08 ABG pH 7.32 L 7.22 L D 7.35 D ABG pCO2 47 61 H D 46 D ABG pO2 96 D 83 96 ABG HCO3 24 25 25 ABG O2 Saturation 98 96 99 H ABG Base Excess -2 -4 L -1 VBG pH VBG pCO2 VBG pO2 VBG Base Excess 06/23/24 04:07 ABG pH 7.38 ABG pCO2 44 ABG pO2 96 ABG HCO3 26 ABG O2 Saturation 98 ABG Base Excess 1 VBG pH VBG pCO2 VBG pO2 VBG Base Excess Quality Measures Quality Measures sepsis Current suspected stage: ruled out Possible source: pulmonary Blood cultures ordered: yes Antibiotic ordered: Yes Assessment & Plan Assessment Current Active Medications: Generic Name Dose Route Start Last Admin Trade Name Freq PRN Reason Stop Dose Admin Acetaminophen 650 mg 06/21/24 11:10 Acetaminophen 325 Mg Tablet PO 07/21/24 11:09 Q6H PRN PAIN SCALE 1-3 (mild Hydrocodone Bitart/Acetaminophen 1 tab 06/21/24 13:33 Hydrocodone/Apap 5/325 Tablet PO 06/26/24 13:32 Q4HR PRN PAIN SCALE 4-10(Mod-Sev Protocol Acetylcysteine 3 ml 06/22/24 11:00 06/23/24 10:57 Acetylcysteine Melina 20% 4 Ml Nebu INH 07/22/24 10:59 3 ml Q4HRRT PATSY Administration Albuterol/Ipratropium 3 ml 06/21/24 17:25 06/23/24 10:57 Albuterol/Ipratropium (Duoneb) Rt Melina 3 Ml Nebu INH 07/21/24 17:24 3 ml Q4HRRT PATSY Administration Benzonatate 100 mg 06/21/24 14:52 Benzonatate 100 Mg Capsule PO 07/21/24 14:51 Q8HR PRN COUGH Protocol Dextrose 25 ml 06/21/24 13:25 Dextrose 50%-Water Inj 50 Ml Syringe IV 07/21/24 13:24 Q15MIN PRN BG 50-70 responsive npo pt Dextrose 50 ml 06/21/24 13:25 Dextrose 50%-Water Inj 50 Ml Syringe IV 07/21/24 13:24 Q15MIN PRN BG <50 OR BG <70 & pt unresponsive Enoxaparin Sodium 40 mg 06/22/24 21:00 06/23/24 08:31 Enoxaparin Sod Inj 40 Mg/0.4 Ml Syringe SC 07/06/24 20:59 40 mg BID PATSY Administration Glucagon 1 mg 06/21/24 13:25 Glucagon Inj 1 Mg Vial IM Q15MIN PRN BG <70, and no IV access Guaifenesin/Dextromethorphan 1 each 06/21/24 11:13 Guaifenesin/Dm Tablet PO 07/21/24 11:12 Q4HR PRN COUGH Protocol Piperacillin/Tazobactam/Dextrose 3.375 gm in 50 mls @ 12.5 mls/hr 06/21/24 14:00 06/23/24 13:18 Zosyn IV 06/28/24 13:59 12.5 mls/hr Q8HR PATSY Administration Norepinephrine/Dextrose 8 mg in 250 mls @ 11.907 mls/hr 06/22/24 05:16 06/22/24 08:21 Levophed In D5w 8mg/250ml IV 07/22/24 05:15 0 mcg/kg/min .Q21H PRN 0 mls/hr PER PROTOCOL Titration Protocol 0.05 MCG/KG/MIN Vancomycin/Sodium Chloride 200 mls @ 120 mls/hr 06/22/24 10:00 06/23/24 10:43 Vancomycin/Ns 1 Gm Ivpb IV 06/29/24 09:59 120 mls/hr BID@1000,2200 PATSY Administration Protocol Fentanyl Citrate 2,500 mcg in 250 mls @ 2.5 mls/hr 06/23/24 02:57 06/23/24 12:26 Sublimaze Inj 2,500 Mcg/250 Ml Bag IV 06/27/24 01:29 75 mcg/hr .Q24H PRN 7.5 mls/hr PER PROTOCOL Administration Protocol 25 MCG/HR Propofol 1,000 mg in 100 mls @ 3.81 mls/hr 06/23/24 03:40 06/23/24 12:00 Diprivan Ivpb IV 07/22/24 02:29 15 mcg/kg/min .Q24H PRN 11.431 mls/hr PER PROTOCOL Titration Protocol 5 MCG/KG/MIN Fluconazole 400 mg in 200 mls @ 100 mls/hr 06/24/24 09:00 Diflucan/Ns Ivpb IV 07/01/24 08:59 BID PATSY Insulin Glargine 15 unit 06/21/24 21:00 06/22/24 20:29 Insulin Glargine (Lantus) 5 Unit/0.05 Ml (Per 5 Units) SC 07/21/24 20:59 15 unit HS PATSY Administration Insulin Human Lispro 0 unit 06/22/24 06:00 06/23/24 11:24 Insulin Lispro (Admelog) 1 Unit/0.01 Ml Unit SC 07/22/24 05:59 4 unit Q6HR PATSY Administration Protocol Ondansetron HCl 4 mg 06/21/24 11:10 Ondansetron Inj 2 Mg/Ml Inj 2 Ml IV 07/21/24 11:09 Q6H PRN NAUSEA OR VOMITING Protocol Pantoprazole Sodium 40 mg 06/23/24 09:00 06/23/24 08:31 Pantoprazole Inj 40 Mg Vial IVP 07/23/24 08:59 40 mg QDAY PATSY Administration Pharmacy Consult 1 each 06/22/24 09:00 Vancomycin Pharmacy To Dose 1 Each Each IV 07/22/24 08:59 QDAY PRN CONSULT Pharmacy Consult 1 each 06/21/24 13:29 Pharmacy Renal Dose Adjustment 1 Ea XX 07/21/24 13:28 PRN PRN CONSULT Plan Assessment & Plan Neurological #Methamphetamine intoxication versus withdrawal #Methamphetamine dependence #Agitated Patient became acutely agitated due to claustrophobia from BiPAP mask. Patient was repeatedly removing mask resulting in worsening of her Hypercapnic respiratory failure. A trial of ativan and Haldol were administered in an attempt to reduce her anxiety and agitation, however were inaffective. Patient was then placed on a precedex drip for sedation at which point the patient was sedated enough to comply with the BiPAP mask. Patient was maxed out on Precedex drip still was agitated eventually decision was made to intubate and sedate the patient overnight. Management: - Intubated and mechanically ventilated - Patient on minimal dose sedation, will continue to wean off Fentanyl and propofol - RASS goal: 0 - Will consider social media marketing analyst consult for methamphetamine use Cardiology # Hypotension, secondary to sedation Differential diagnosis: Distributive shock (high probability of septic shock, underlying source right lung pneumonia, less likely anaphylactic/neurogenic) Obstructive shock ruled out PE, CTA was negative, chest x-ray normal, ruled out tension pneumo, ordered echo to rule out cardiac tamponade Cardiogenic shock patient has history of meth use, troponin negative, EKG unremarkable, pending echo Hypovolemic shock patient received 3 L IV fluid in ED, bedside JVP 2.3, ruled out hypovolemic shock Management: -Patient started on Levophed overnight, will titrate down to MAP more than 65, Levophed was discontinued, received low-dose for short while -Patient received IV fluids per sepsis protocol, will continue to monitor -Will treat underlying pneumonia -Follow echocardiogram # Lower extremity edema Patient has history of meth use, concern of heart failure due to meth Echo from 4 years ago shows no sign of heart failure EF is normal Will follow echocardiogram Pulmonary #Acute Hypercapnic Respiratory failure #Status post Intubation Patient intubated due to acute hypercapnic respiratory failure and noncompliance with BiPAP Currently on mechanical ventilation, goal tidal volume for 6 to 7 cc/kg is 330- 380 This a.m. patient's VT 400, RR 16, PEEP 5 FiO2 30 Will continue mechanical ventilation # Extensive right lung pneumonia # Bibasilar pneumonia # Cocci IgM positive # Concern of COPD Patient was started on vancomycin and Zosyn, will continue Will continue IV fluconazole Blood culture 1/2 shows GNR, will continue to follow MRSA nares is pending Sputum culture 10-25 epithelial cells, contaminated Will optimize antibiotic therapy once cultures have resulted Continue DuoNeb/Mucomyst every 4 hours Chest physiotherapy every 4 hours #Hypertension, patient history Patient has history as stated. Patient BP initially elevated, decreased rapidly in ED. Hold antihypertensive medications in setting of shock Gastrointestinal #Elevated Alk phos #Hyperbilirubinemia, resolved #Hepatomegaly #Gallstones Patient on no right upper quadrant tenderness Monitor CMP in a.m. GI prophylaxis: Protonix IVP Tube feeds: Started on trickle feeds Renal/Genitourinary #Acute Kidney Injury, resolving Patient has a mild MARCELA. BUN 22, creatinine 1.3, EGFR 52. -Avoid nephrotoxins -Renally dose meds -Monitor daily renal function -For essential medications that are renally cleared, adjust dosing daily -Avoid Iodinated contrast media to prevent contrast induced nephropathy -Avoid Gadolinium-based contrast agents to prevent?nephrogenic systemic fibrosis -Avoid Nephrotoxic medications and drugs that may have a detrimental effect on glomerular pefusion -Continue fluid resuscitation with NS mls/h Endocrine #Diabetes, insulin-dependent Patient has history of diabetes requiring home insulin use. HA1C 11.6% as of 05/12/2024. -Lantus 22 units daily -Lispro 3 units every 6 hours -Sliding scale insulin every 6 hours -Increase to every 6 hours -Goal blood glucose level 140-200 Hematology # Leukocytosis Will treat underlying cause # Normocytic normochromic anemia We will continue to monitor DVT prophylaxis: Lovenox 40 every 12 hours Infectious Disease #Sepsis secondary to CAP # ESBL UTI Patient presented with chief complaint shortness of breath and fever at home. Patient found to be septic: Heart rate 130, respirations 25, WBCs 26. Chest x- ray showed right base pneumonia. Lactic acid 3.0, increased to 3.8. Patient was unable to receive IV fluids for extended period of time due to difficulty getting peripheral IV. 2 peripheral IVs successfully placed. Blood and urine cultures drawn. Pro-Lyndon 8.06. Requiring O2 to maintain saturations, On room air at baseline. Patient recieved 3L IVF and maintenence fluids which may have exacerbated her respiratory distress. Patient met SIRS criteria (WBC 41.4, Pulse 126, RR 20) with 2 suspected sources of Pneumonia and UTI as evidenced on Chest/Abdomen/Pelvis CT. Patient received 30 cc/kg and IV antibiotics vancomycin and Zosyn in the ED. Lactic Acid: 2.0, Procalcitonin 12.08 -Blood cultures show 1/2 GNR -Urine cultures show ESBL UTI sensitive to Zosyn -Cocci IgM positive -Flu, COVID negative Antibiotic regimen: -Vanco pharmacy dosing (06/21-) -Zosyn 3.375 g IV every 8 hours (06/21-) -IV fluconazole (06/23- Skin - no acute issues, no evidence of skin breakdown DVT prophylaxis: Lovenox 40 IV twice daily GI prophylaxis: IV Protonix Diet: Trickle tube feeds Lines: Peripheral IV Code status: Full code Case discussed with Attending Dr. Sanches and Dr. Hensley PGY3. Jennifer Feliciano PGY1 Disclaimer: This note was dictated by speech recognition. Minor errors in principal java developer may be present due to voice recognition software.
[2024-06-23 14:28] LABS: Base Excess 1 (-3-3); HCO3 27 mEq/L (20-26); Inspired Oxygen, FIO2 30 %; O2 Saturation 97 % (91-98); PCO2 45 mmHg (32.0-48.0); PO2 81 mmHg (83-108); pH, Arterial 7.38 (7.35-7.45)
[2024-06-23 14:29] LABS: Puncture Site Right Radial
[2024-06-23 14:30] LABS: Allen Test Not Performed
--- NOTE | 2024-06-23 15:43 | ESPR_ITS ---
Documentation for date of: 06/23/24 Subjective Subjective Interval history: This is a 43yo F who was admitted on the for shortness of breath and fever. She was felt to have a pneumonia and started on vancomycin and Zosyn. After admission she was noted to be lethargic and ABG was performed. She was found to have a mild respiratory acidosis and a BiPAP was ordered. Patient was noncompliant with the BiPAP. She was agitated removing the BiPAP. Her overall condition continued to decline at which point in time ICU eval was requested. The patient was felt to be appropriate for intubation and was therefore intubated. She was placed on sedation and given Lasix. She was afebrile overnight. She had a good urinary output after the Lasix. She did have some decrease in her blood pressure requiring vasopressor support briefly. 06/23- no acute overnight events, afebrile, doing well, follows commands, good UOP Critical Care Note Critical care time (min.): 36 Exam Vital Signs Temp Pulse Resp BP Pulse Ox O2 Del Method O2 Flow Rate 99.3 F 102 H 22 H 170/76 H 99 Mechanical Ventilation 40 06/23/24 12:00 06/23/24 15:39 06/23/24 15:39 06/23/24 15:01 06/23/24 15:39 06/23/24 12:00 06/21/24 21:05 FiO2 30 06/23/24 15:39 Narrative Exam Gen- NAD, obese, follows commands HEENT- NC/AT, mucosa hydrated, sclera anicteric, Chest- diminished breath sounds, HRRR, no increase in WOB Abd- s/nt/bs+ Ext- improving edema of R LE, LBKA, no mottling, no clubbing, moves all 4 Vent AC VC Drips fent prop Physical Exam Completion Physical Exam Complete?: Yes Objective - Locomotive Engineer Labs 06/24/24 04:42 06/24/24 04:42 Labs: Laboratory Results - last 24 hr 06/22/24 06/23/24 06/23/24 21:07 04:07 04:30 WBC 19.0 H RBC 3.99 L Hgb 10.6 L Hct 33.0 L MCV 83 MCH 26.6 MCHC 32.1 RDW Std Deviation 45.5 Plt Count 278 Neut % (Auto) 83 H Lymph % (Auto) 10 [place] % (Auto) 6 Eos % (Auto) 0 Baso % (Auto) 1 Neut # (Auto) 15.6 H Lymph # (Auto) 2.0 [place] # (Auto) 1.1 H Eos # (Auto) 0.1 Baso # (Auto) 0.1 Immature Gran # (Auto) 0.14 H Absolute Nucleated RBC 0.00 Immature Gran % 1 H Nucleated RBC % 0 Puncture Site Right Radial ABG pH 7.38 ABG pCO2 44 ABG pO2 96 ABG HCO3 26 ABG O2 Saturation 98 ABG Base Excess 1 FiO2 40 Sodium 136 Potassium 3.6 D Chloride 101 Carbon Dioxide 25.7 Anion Gap 9 BUN 29 H Creatinine 1.0 D Estim Creat Clear Calc 99.4 eGFR > 60 BUN/Creatinine Ratio 29 H Glucose 238 H D Calculated Osmolality 285 Calcium 8.8 Corrected Calcium 9.3 Phosphorus 2.4 Magnesium 2.2 Total Bilirubin 1.0 AST 19 ALT 14 Alkaline Phosphatase 198 H D Total Protein 6.8 Albumin 3.4 L Globulin 3.4 Albumin/Globulin Ratio 1.0 L Triglycerides 186 H Vancomycin Trough 16.6 H 06/23/24 14:18 WBC RBC Hgb Hct MCV MCH MCHC RDW Std Deviation Plt Count Neut % (Auto) Lymph % (Auto) [place] % (Auto) Eos % (Auto) Baso % (Auto) Neut # (Auto) Lymph # (Auto) [place] # (Auto) Eos # (Auto) Baso # (Auto) Immature Gran # (Auto) Absolute Nucleated RBC Immature Gran % Nucleated RBC % Puncture Site Right Radial ABG pH 7.38 ABG pCO2 45 ABG pO2 81 L ABG HCO3 27 H ABG O2 Saturation 97 ABG Base Excess 1 FiO2 30 Sodium Potassium Chloride Carbon Dioxide Anion Gap BUN Creatinine Estim Creat Clear Calc eGFR BUN/Creatinine Ratio Glucose Calculated Osmolality Calcium Corrected Calcium Phosphorus Magnesium Total Bilirubin AST ALT Alkaline Phosphatase Total Protein Albumin Globulin Albumin/Globulin Ratio Triglycerides Vancomycin Trough Assessment & Plan Additional Assessment Additional Assessment: In summary this is a 43yo F admitted for acute hypercapneic resp failure 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 CHF- pt with LE edema and increased vasc markings on CXR - echo pending Hypotension 2/2 sedation- resolved Resp Acute hypercapneic resp failure- intubated and on MV, fu ABG and CXR, adjust as needed - ? underlying COPD with extensive expiratory wheeze-> started on duonebs - doing well and will trial SBT PNA- dense consolidation seen on CT - on abx - CPT localized to RLL - mucomyst nebs added to duonebs x 24hrs Renal MARCELA- increase from baseline - monitor i/os - ? prerenal v intrarenal - did receive IV contrast and lasix over the last 24hrs - improving from yesterday - good UOP GI Cirrhosis- noted on CT - workup as outpt GI proph- PPI Endo DM- SSI, FS q6h Heme Leukocytosis- related to her underlying PNA Anemia- mild, monitor DVT proph- lovenox 40mg q12 ID PNA- on abx case d/w ICU team labs, imaging, records reviewed ~36ccmin required for eval, exam, review, intervention, discussion and formulation of POC for this critically ill pt with acute resp failure at high risk for further and ongoing decompensation Provider Notation Provider Notation: Although this document has been carefully reviewed, there may still be some phonetic and other typographical errors. These errors are purely grammatical due to imperfections in the software program and should not be construed in any way to compromise the substance of the patient's medical care during this visit. Thank you for the opportunity and privilege in assisting you with this patient's care and management.
[2024-06-23] MEDS: INSULIN LISPRO (AdmeLOG) 1 UNIT/0.01 ML UNIT 3 UNIT SC ×2 (17:29→23:44)
[2024-06-23] MEDS: INSULIN GLARGINE (Lantus) 5 UNIT/0.05 ML (PER 5 UNITS) 22 UNIT SC (21:06)
[2024-06-24] VITALS (34 sets, daily range): BP systolic 134–199; BP diastolic 74–108; PULSE 82–114; RESP 13–35; TEMP 35.8–37.4; O2SAT 91–99
[2024-06-24] MEDS: ALBUTEROL/IPRATROPIUM (Duoneb) RT SOL 3 ML NEBU INH ×6 (02:39→22:47)
[2024-06-24] MEDS: ACETYLCYSTEINE SOL 20% 4 ML NEBU 3 ML INH ×6 (02:39→22:47)
[2024-06-24] MEDS: Lisinopril 2.5 MG TABLET 10 MG PO ×2 (03:54→10:11)
[2024-06-24 04:08] LABS: Allen Test Not Performed; Base Excess 2 (-3-3); HCO3 28 mEq/L (20-26); Inspired O2, VO2 Liters 1 L/min; Inspired Oxygen, FIO2 21 %; O2 Saturation 92 % (91-98); PCO2 48 mmHg (32.0-48.0); PO2 62 mmHg (83-108); Puncture Site Left Radial; pH, Arterial 7.37 (7.35-7.45)
--- NOTE | 2024-06-24 05:00 | XR_ITS ---
Examination: AP chest single view TECHNIQUE: AP portable upright chest single view Examination type: June 24, 2024 0509 hours Comparison June 23, 2024 INDICATIONS: Hypoxic respiratory failure this week post intubation, significant bilateral pneumonia on chest film June 23, 2024 FINDINGS: Significant right lung pneumonia Mild left base pneumonia Mild associated heart failure with cardiomegaly and prominent vascular congestion Large right pleural effusion IMPRESSION: Bilateral pneumonia, significant right lung Mild associated heart failure Large right pleural effusion
[2024-06-24] MEDS: INSULIN LISPRO (AdmeLOG) 1 UNIT/0.01 ML UNIT SC ×4 (05:19→23:12)
[2024-06-24] MEDS: INSULIN LISPRO (AdmeLOG) 1 UNIT/0.01 ML UNIT 3 UNIT SC (05:19)
[2024-06-24] MEDS: PIPER/TAZO 3.375 GM 3.375 GM/50 ML BAG IV ×3 (05:19→21:00)
[2024-06-24 06:07] LABS: Basophils # (Auto) 0.1 Thou/mm3 (0.0-0.2); Basophils % (Auto) 1 % (0-2.5); Eosinophils # (Auto) 0.1 Thou/mm3 (0.0-0.5); Eosinophils % (Auto) 1 % (0-10); Hematocrit 34.4 % (36.0-46.0); Hemoglobin 10.8 g/dL (12.0-16.0); Immature Granulocytes % (Auto) 1 % (0-0); Immature Granulocytes Auto 0.12 Thou/mm3 (0.00-0.00); Lymphocytes # (Auto) 1.7 Thou/mm3 (1.0-4.8); Lymphocytes % (Auto) 11 % (10-50); Mean Corpuscular HGB Conc 31.4 g/dl (31.0-37.0); Mean Corpuscular Hemoglobin 26.8 pg (25.0-35.0); Mean Corpuscular Volume 85 fL (80-100); Monocytes # (Auto) 1.2 Thou/mm3 (0.0-0.8); Monocytes % (Auto) 8 % (0-12); Neutrophils # (Auto) 11.6 Thou/mm3 (1.8-7.7); Neutrophils % (Auto) 79 % (37-80); Nucleated Red Blood Cell % 0 /100 WBC (0); Platelet Count 256 Thou/mm3 (140-440); RDW Standard Deviation 45.6 fL (36.4-46.3); Red Blood Count 4.03 Miln/mm3 (4.00-5.20); White Blood Count 14.8 Thou/mm3 (3.6-11.0)
[2024-06-24 06:23] LABS: Glucose Estimated Average 260 mg/dL (80-131); Hemoglobin A1C 10.7 % Hgb (4.8-6.0)
[2024-06-24 06:43] LABS: Alanine Aminotransferase 15 U/L (10-49); Albumin, Serum 3.6 gm/dL (3.5-5.0); Alkaline Phosphatase 240 U/L (46-116); Anion Gap 10 (7-16); Aspartate Amino Transferase 20 U/L (0-34); BUN/Creatinine Ratio 26 Ratio (12-20); Blood Urea Nitrogen 18 mg/dL (9-23); Calcium 9.1 mg/dL (8.3-10.6); Calcium (Corrected) 9.4 mg/dL (8.5-10.1); Carbon Dioxide 26.2 mMol/L (20.0-31.0); Cardiac Risk Estimate 5.3 RATIO (3.7-5.6); Chloride 101 mMol/L (98-107); Cholesterol 85 mg/dL (132-200); Creatinine (Component) 0.7 mg/dL (0.6-1.3); Estimated Creatinine Clearance 141.9 mL/min (>60); Globulin 3.6 gm/dL (2.3-3.5); Glucose 206 mg/dL (74-106); HDL Cholesterol 16 mg/dL (40-60); LDL Cholesterol,Calculated 33 mg/dL (0-130); Magnesium 1.9 mg/dL (1.6-2.6); Osmolality,Calculated 281 (275-295); Phosphorous 2.5 mg/dL (2.4-5.1); Potassium 3.6 mMol/L (3.4-5.1); Sodium 137 mMol/L (136-145); Total Protein 7.2 gm/dL (5.7-8.2); Triglycerides 180 mg/dL (30-150); eGFR > 60 See Note
[2024-06-24] MEDS: ENOXAPARIN SOD INJ 40 MG/0.4 ML SYRINGE SC ×2 (08:31→20:32)
[2024-06-24] MEDS: PANTOPRAZOLE INJ 40 MG VIAL IVP (08:31)
[2024-06-24] MEDS: FLUCONAZOLE/NS 400 MG IVPB 400 MG/200 ML BAG 100 MG IV ×2 (08:31→20:30)
--- NOTE | 2024-06-24 09:31 | ESPR_ITS ---
Documentation for date of: 06/24/24 Subjective Subjective Interval history: This is a 43yo F who was admitted on the for shortness of breath and fever. She was felt to have a pneumonia and started on vancomycin and Zosyn. After admission she was noted to be lethargic and ABG was performed. She was found to have a mild respiratory acidosis and a BiPAP was ordered. Patient was noncompliant with the BiPAP. She was agitated removing the BiPAP. Her overall condition continued to decline at which point in time ICU eval was requested. The patient was felt to be appropriate for intubation and was therefore intubated. She was placed on sedation and given Lasix. She was afebrile overnight. She had a good urinary output after the Lasix. She did have some decrease in her blood pressure requiring vasopressor support briefly. 06/23- no acute overnight events, afebrile, doing well, follows commands, good UOP 06/24- extubated yesterday and doing well, started on PO diet, afebrile, net neg over the last 24hrs Critical Care Note Critical care time (min.): 0 Exam Vital Signs Temp Pulse Resp BP Pulse Ox O2 Del Method O2 Flow Rate 97 F 103 H 22 H 161/91 H 99 Nasal Cannula 2 06/24/24 04:00 06/24/24 06:34 06/24/24 06:34 06/24/24 06:01 06/24/24 06:34 06/24/24 06:01 06/24/24 06:34 FiO2 30 06/23/24 18:24 Narrative Exam Gen- NAD, AAOx3, obese body habitus HEENT- NC/AT, mucosa hydrated, sclera anicteric Chest- diminished breath sounds b/l, HRRR, no increase in WOB Abd- s/nt/bs+ Ext- mild edema of RLE with improvement, L BKA, pulses palp, no clubbing, no mottling Physical Exam Completion Physical Exam Complete?: Yes 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 06/24/24 04:42 06/24/24 04:42 Labs: Laboratory Results - last 24 hr 06/23/24 06/23/24 06/24/24 04:30 14:18 03:59 WBC RBC Hgb Hct MCV MCH MCHC RDW Std Deviation Plt Count Neut % (Auto) Lymph % (Auto) [place] % (Auto) Eos % (Auto) Baso % (Auto) Neut # (Auto) Lymph # (Auto) [place] # (Auto) Eos # (Auto) Baso # (Auto) Immature Gran # (Auto) Absolute Nucleated RBC Immature Gran % Nucleated RBC % Puncture Site Right Radial Left Radial ABG pH 7.38 7.37 ABG pCO2 45 48 ABG pO2 81 L 62 L ABG HCO3 27 H 28 H ABG O2 Saturation 97 92 ABG Base Excess 1 2 Oxygen Liter Flow 1 FiO2 30 21 Sodium Potassium Chloride Carbon Dioxide Anion Gap BUN Creatinine Estim Creat Clear Calc eGFR BUN/Creatinine Ratio Glucose Estimated Ave Glu mg/dL Hemoglobin A1c Calculated Osmolality Calcium Corrected Calcium Phosphorus Magnesium Total Bilirubin AST ALT Alkaline Phosphatase Total Protein Albumin Globulin Albumin/Globulin Ratio Triglycerides 186 H Cholesterol LDL Cholesterol, Calc HDL Cholesterol Cholesterol/HDL Ratio 06/24/24 04:42 WBC 14.8 H RBC 4.03 Hgb 10.8 L Hct 34.4 L MCV 85 MCH 26.8 MCHC 31.4 RDW Std Deviation 45.6 Plt Count 256 Neut % (Auto) 79 Lymph % (Auto) 11 [place] % (Auto) 8 Eos % (Auto) 1 Baso % (Auto) 1 Neut # (Auto) 11.6 H Lymph # (Auto) 1.7 [place] # (Auto) 1.2 H Eos # (Auto) 0.1 Baso # (Auto) 0.1 Immature Gran # (Auto) 0.12 H Absolute Nucleated RBC 0.00 Immature Gran % 1 H Nucleated RBC % 0 Puncture Site ABG pH ABG pCO2 ABG pO2 ABG HCO3 ABG O2 Saturation ABG Base Excess Oxygen Liter Flow FiO2 Sodium 137 Potassium 3.6 Chloride 101 Carbon Dioxide 26.2 Anion Gap 10 BUN 18 Creatinine 0.7 Estim Creat Clear Calc 141.9 eGFR > 60 BUN/Creatinine Ratio 26 H Glucose [address] Glu mg/dL 260 H Hemoglobin A1c 10.7 H Calculated Osmolality 281 Calcium 9.1 Corrected Calcium 9.4 Phosphorus 2.5 Magnesium 1.9 Total Bilirubin 1.0 AST 20 ALT 15 Alkaline Phosphatase 240 H D Total Protein 7.2 Albumin 3.6 Globulin 3.6 H Albumin/Globulin Ratio 1.0 L Triglycerides 180 H Cholesterol 85 L LDL Cholesterol, Calc 33 HDL Cholesterol 16 L Cholesterol/HDL Ratio 5.3 Assessment & Plan Additional Assessment Additional Assessment: In summary this is a 43yo F admitted for acute hypercapneic resp failure 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 CHF- pt with LE edema and increased vasc markings on CXR - echo pending Hypotension 2/2 sedation- resolved HTN- restarted on home meds today Resp Acute hypercapneic resp failure- resolved PNA- dense consolidation seen on CT - on abx - CPT localized to RLL - mucomyst nebs added to duonebs x 24hrs and now stopped - improving Renal MARCELA- resolved GI Cirrhosis- noted on CT - workup as outpt GI proph- PPI Endo DM- SSI, FS ACHS - A1c elevated Heme Leukocytosis- related to her underlying PNA - trending down Anemia- mild, monitor - stable DVT proph- lovenox 40mg q12 ID PNA- on abx - sputum cx still pending - IgM is pos for Cocci and pt started on fluconazole Bacteremia- 2/2 bcx from 06/21 resulted back as pos with Haemophilus influenzae-> currently on zosyn UTI- ESBL E. Coli which is sensitive to zosyn case d/w ICU team stable for downgrade labs, imaging, records reviewed ~38min required for eval, exam, review, intervention, discussion and formulation of POC for this critically ill pt with acute resp failure at high risk for further and ongoing decompensation Provider Notation Provider Notation: Although this document has been carefully reviewed, there may still be some phonetic and other typographical errors. These errors are purely grammatical due to imperfections in the software program and should not be construed in any way to compromise the substance of the patient's medical care during this visit. Thank you for the opportunity and privilege in assisting you with this patient's care and management.
--- NOTE | 2024-06-24 11:12 | ESPR_ITS ---
<Statement entered by Destinee Braxton DO - 06/24/24 11:45> Senior attestation: Patient was examined and case was reviewed with team including attending physician. Note reviewed, I agree with most of its contents and agree with the patient's care. Patient was extubated yesterday, transitioned from BiPAP to nasal cannula. Was observed in ICU overnight, is in stable condition for downgrade to hospital floors. Currently remains on Zosyn (for H influenzae, senstivities pending), and fluconazole (Cocci IgM, confirmatory IgG needed), will advise infectious disease recommendations for further management of these conditions. Destinee Braxton DO PGY-3 Documentation for date of: 06/24/24 Subjective Subjective Interval history: Ms. Nati Mccall is a 43 year old lady with past medical history significant for insulin-dependent diabetes, hypertension and peripheral neuropathy who presented to the ED on 04/21/2025 with a chief complaint of shortness of breath and fever of 2 days duration. Patient was in usual state of health until 2 days prior to presentation when she began to develop shortness of breath associated with productive cough. During this time patient noted she had occasional fevers. Shortness of breath continued to worsen prompting visit to ED. Patient denies nausea, vomiting, chest pain, chills. On exam patient notes right shoulder/back pain, has been present for several days. 06/21/24: Patient was subsequently admitted for sepsis secondary to CAP. Shortly after being admitted, the patient was noted to be lethargic and an ABG was performed which showed pH 7.27/pCO2 54/HCO3 25. The patient was started on BiPAP in an attempt to reduce CO2. After approximately 2 hours after initiating BiPAP a repeat abg showed the pH and CO2 minimally improve to 7.3 and 50 respectively. The patient then became more alert and again removed her BiPAP mask. The patient would not tolerate BiPAP due to feeling claustrophobic and would repeatedly remove the BiPAP mask. The patient was administered Ativan 0.5 mg x 1 to reduce anxiety, however the patient was still noncompliant. She was then placed on restraints with a sitter however became agitated and freed herself from the restraints and again removed her BiPAP. A repeat blood gas showed worsening of her Ph and PCO2, at which time ICU was consulted to admit the patient for possible need for intubation. Patient was then administered Haldol 5mg x 1 to help reduce her agitation and for compliance with the BiPAP. A repeat ABG again showed worsening. Due to still being non-compliant, she was then started on a precedex drip at which point she was sedated enough to comply with the BiPAP. A VBG showed improvement with a pH of 7.30/pCO2 51. 06/22/2024: Patient seen and examined at bedside, overnight was intubated as patient was maxed out on Precedex was agitated and kept removing BiPAP mask. Patient eventually intubated for acute hypercapnic respiratory failure in the ICU, overnight was given Ativan 0.5 mg x 1 and Haldol IV which was not effective to control patient's sedation. Today at bedside patient has GCS of 7T, currently intubated ABG from this morning shows pH of 7.35, patient has extensive right-sided pneumonia and increased work of breathing, will try to wean patient off of sedation with RASS goal of 0. Patient was overnight started on low-dose Levophed, high probability of septic shock due to underlying right lung pneumonia, will titrate patient off pressors today with MAP goal of 65. Patient has pending echo, bedside ultrasound shows JVP 2.3, limited bedside heart ultrasound due to patient's body habitus will continue to monitor JOSÉ LUIS's and patient's urine output. Patient will continue to receive DuoNebs Mucomyst every 4 hour with chest physiotherapy, pending cultures will continue broad coverage with Vanco and Zosyn for now. Patient's DVT prophylaxis changed to Lovenox 40 twice daily, will continue to monitor renal function and urine output. 06/23/2024: Patient seen and examined at bedside, overnight patient was agitated, RASS score was changed to -2, patient had good urine output. Patient follows commands, responsive, will continue to wean patient off sedation. Patient's respiratory rate on mechanical ventilator is around 30, will titrate down rate to 16-18 with goal minute ventilation, will repeat ABG later today after ventilator changes. Patient's cocci IgM positive, patient started on fluconazole, pending MRSA nares, urine culture shows ESBL E. coli sensitive to Zosyn, will continue vancomycin and Zosyn. Echocardiogram pending, bedside echo limited due to patient's body habitus. Will hold diuresis for now, patient continues to have 2+ lower extremity edema, monitoring intake and output. Will start patient on trickle feeds today, pending dietitian recommendations. Patient's insulin regimen optimized to keep blood sugar within goal of 140-200. 06/24/2024: Patient seen and examined at bedside, yesterday patient was extubated started on BiPAP, patient tolerated BiPAP well was eventually switched to nasal cannula. Patient's work of breathing has improved significantly, currently saturating well on 1 L nasal cannula. Patient currently on Zosyn and fluconazole, 1/2 blood cultures show GNR H influenza, pending sensitivities. Will continue treatment with IV antibiotics for now, consulted infectious disease for further recommendations. Patient's echo still pending, not on any diuresis currently monitor JOSÉ LUIS's closely. Discontinued vancomycin, MRSA nasal screen negative. Patient stable to be downgraded to hospitalist team in a.m., patient will be downgraded from ICU to telemetry starting tomorrow. Exam Vital Signs Temp Pulse Resp BP Pulse Ox O2 Del Method O2 Flow Rate 96.5 F L 96 24 H 169/94 H 98 Nasal Cannula 1 06/24/24 08:02 06/24/24 10:53 06/24/24 10:53 06/24/24 10:11 06/24/24 10:53 06/24/24 08:02 06/24/24 08:02 FiO2 30 06/23/24 18:24 Narrative Exam Physical Exam General: 43-year-old female, morbidly obese, intubated has OG tube HEENT: Normocephalic, atraumatic, mucous membranes moist, pupils bilaterally reactive Heart: Regular rhythm, tachycardic, no murmurs. Lungs: Normal breath sounds heard bilaterally, no wheezing and crackles Abdomen: Soft, obese, nondistended, nontender, positive bowel sounds. Mid- abdomen scar noted. Neurologic: Alert and oriented x 3, follows commands, able to move all 4 extremities Extremities: 2+ edema right lower extremity, Left leg below-knee amputation noted Skin: No rash or ecchymoses. Small scab noted on right arm, dry skin bilateral legs. Objective Labs 06/24/24 04:42 06/24/24 04:42 Labs: Laboratory Results - last 24 hr 06/23/24 06/23/24 06/24/24 04:30 14:18 03:59 WBC RBC Hgb Hct MCV MCH MCHC RDW Std Deviation Plt Count Neut % (Auto) Lymph % (Auto) [place] % (Auto) Eos % (Auto) Baso % (Auto) Neut # (Auto) Lymph # (Auto) [place] # (Auto) Eos # (Auto) Baso # (Auto) Immature Gran # (Auto) Absolute Nucleated RBC Immature Gran % Nucleated RBC % Puncture Site Right Radial Left Radial ABG pH 7.38 7.37 ABG pCO2 45 48 ABG pO2 81 L 62 L ABG HCO3 27 H 28 H ABG O2 Saturation 97 92 ABG Base Excess 1 2 Oxygen Liter Flow 1 FiO2 30 21 Sodium Potassium Chloride Carbon Dioxide Anion Gap BUN Creatinine Estim Creat Clear Calc eGFR BUN/Creatinine Ratio Glucose Estimated Ave Glu mg/dL Hemoglobin A1c Calculated Osmolality Calcium Corrected Calcium Phosphorus Magnesium Total Bilirubin AST ALT Alkaline Phosphatase Total Protein Albumin Globulin Albumin/Globulin Ratio Triglycerides 186 H Cholesterol LDL Cholesterol, Calc HDL Cholesterol Cholesterol/HDL Ratio 06/24/24 04:42 WBC 14.8 H RBC 4.03 Hgb 10.8 L Hct 34.4 L MCV 85 MCH 26.8 MCHC 31.4 RDW Std Deviation 45.6 Plt Count 256 Neut % (Auto) 79 Lymph % (Auto) 11 [place] % (Auto) 8 Eos % (Auto) 1 Baso % (Auto) 1 Neut # (Auto) 11.6 H Lymph # (Auto) 1.7 [place] # (Auto) 1.2 H Eos # (Auto) 0.1 Baso # (Auto) 0.1 Immature Gran # (Auto) 0.12 H Absolute Nucleated RBC 0.00 Immature Gran % 1 H Nucleated RBC % 0 Puncture Site ABG pH ABG pCO2 ABG pO2 ABG HCO3 ABG O2 Saturation ABG Base Excess Oxygen Liter Flow FiO2 Sodium 137 Potassium 3.6 Chloride 101 Carbon Dioxide 26.2 Anion Gap 10 BUN 18 Creatinine 0.7 Estim Creat Clear Calc 141.9 eGFR > 60 BUN/Creatinine Ratio 26 H Glucose [address] Glu mg/dL 260 H Hemoglobin A1c 10.7 H Calculated Osmolality 281 Calcium 9.1 Corrected Calcium 9.4 Phosphorus 2.5 Magnesium 1.9 Total Bilirubin 1.0 AST 20 ALT 15 Alkaline Phosphatase 240 H D Total Protein 7.2 Albumin 3.6 Globulin 3.6 H Albumin/Globulin Ratio 1.0 L Triglycerides 180 H Cholesterol 85 L LDL Cholesterol, Calc 33 HDL Cholesterol 16 L Cholesterol/HDL Ratio 5.3 ABG Interpretation ABG results: 06/21/24 06/21/24 06/21/24 08:27 17:30 20:02 ABG pH 7.27 L 7.30 L ABG pCO2 54 H 50 H ABG pO2 71 L 82 L ABG HCO3 25 24 ABG O2 Saturation 93 96 ABG Base Excess -3 -2 VBG pH 7.39 VBG pCO2 47 VBG pO2 19 VBG Base Excess 3 06/21/24 06/21/24 06/21/24 21:35 21:44 22:41 ABG pH 7.26 L ABG pCO2 56 H ABG pO2 69 L ABG HCO3 25 ABG O2 Saturation 92 ABG Base Excess -3 VBG pH 7.27 L 7.30 L VBG pCO2 53 51 VBG pO2 52 D 55 VBG Base Excess -3 -2 06/22/24 06/22/24 06/22/24 00:42 02:50 04:08 ABG pH 7.32 L 7.22 L D 7.35 D ABG pCO2 47 61 H D 46 D ABG pO2 96 D 83 96 ABG HCO3 24 25 25 ABG O2 Saturation 98 96 99 H ABG Base Excess -2 -4 L -1 VBG pH VBG pCO2 VBG pO2 VBG Base Excess 06/23/24 06/23/24 06/24/24 04:07 14:18 03:59 ABG pH 7.38 7.38 7.37 ABG pCO2 44 45 48 ABG pO2 96 81 L 62 L ABG HCO3 26 27 H 28 H ABG O2 Saturation 98 97 92 ABG Base Excess 1 1 2 VBG pH VBG pCO2 VBG pO2 VBG Base Excess Quality Measures Quality Measures sepsis Current suspected stage: ruled out Possible source: pulmonary Blood cultures ordered: yes Antibiotic ordered: Yes Assessment & Plan Assessment Current Active Medications: Generic Name Dose Route Start Last Admin Trade Name Freq PRN Reason Stop Dose Admin Acetaminophen 650 mg 06/21/24 11:10 Acetaminophen 325 Mg Tablet PO 07/21/24 11:09 Q6H PRN PAIN SCALE 1-3 (mild Hydrocodone Bitart/Acetaminophen 1 tab 06/21/24 13:33 Hydrocodone/Apap 5/325 Tablet PO 06/26/24 13:32 Q4HR PRN PAIN SCALE 4-10(Mod-Sev Protocol Acetylcysteine 3 ml 06/22/24 11:00 06/24/24 10:43 Acetylcysteine Melina 20% 4 Ml Nebu INH 07/22/24 10:59 3 ml Q4HRRT PATSY Administration Albuterol/Ipratropium 3 ml 06/21/24 17:25 06/24/24 10:43 Albuterol/Ipratropium (Duoneb) Rt Melina 3 Ml Nebu INH 07/21/24 17:24 3 ml Q4HRRT PATSY Administration Benzonatate 100 mg 06/21/24 14:52 Benzonatate 100 Mg Capsule PO 07/21/24 14:51 Q8HR PRN COUGH Protocol Dextrose 25 ml 06/21/24 13:25 Dextrose 50%-Water Inj 50 Ml Syringe IV 07/21/24 13:24 Q15MIN PRN BG 50-70 responsive npo pt Dextrose 50 ml 06/21/24 13:25 Dextrose 50%-Water Inj 50 Ml Syringe IV 07/21/24 13:24 Q15MIN PRN BG <50 OR BG <70 & pt unresponsive Enoxaparin Sodium 40 mg 06/22/24 21:00 06/24/24 08:31 Enoxaparin Sod Inj 40 Mg/0.4 Ml Syringe SC 07/06/24 20:59 40 mg BID PATSY Administration Glucagon 1 mg 06/21/24 13:25 Glucagon Inj 1 Mg Vial IM Q15MIN PRN BG <70, and no IV access Guaifenesin/Dextromethorphan 1 each 06/21/24 11:13 Guaifenesin/Dm Tablet PO 07/21/24 11:12 Q4HR PRN COUGH Protocol Piperacillin/Tazobactam/Dextrose 3.375 gm in 50 mls @ 12.5 mls/hr 06/21/24 14:00 06/24/24 05:19 Zosyn IV 06/28/24 13:59 12.5 mls/hr Q8HR PATSY Administration Fluconazole 400 mg in 200 mls @ 100 mls/hr 06/24/24 09:00 06/24/24 08:31 Diflucan/Ns Ivpb IV 07/01/24 08:59 100 mls/hr BID PATSY Administration Insulin Glargine 25 unit 06/24/24 21:00 Insulin Glargine (Lantus) 5 Unit/0.05 Ml (Per 5 Units) SC 07/24/24 20:59 HS [facility] Insulin Human Lispro 0 unit 06/22/24 06:00 06/24/24 05:19 Insulin Lispro (Admelog) 1 Unit/0.01 Ml Unit SC 07/22/24 05:59 4 unit Q6HR [facility] Administration Protocol Insulin Human Lispro 5 unit 06/24/24 12:00 Insulin Lispro (Admelog) 1 Unit/0.01 Ml Unit SC 07/24/24 11:59 Q6HR [facility] Lisinopril 20 mg 06/25/24 09:00 Lisinopril 20 Mg Tablet PO 07/25/24 08:59 QDAY [facility] Ondansetron HCl 4 mg 06/21/24 11:10 Ondansetron Inj 2 Mg/Ml Inj 2 Ml IV 07/21/24 11:09 Q6H PRN NAUSEA OR VOMITING Protocol Pantoprazole Sodium 40 mg 06/23/24 09:00 06/24/24 08:31 Pantoprazole Inj 40 Mg Vial IVP 07/23/24 08:59 40 mg QDAY [facility] Administration Pharmacy Consult 1 each 06/21/24 13:29 Pharmacy Renal Dose Adjustment 1 Ea XX 07/21/24 13:28 PRN PRN CONSULT Plan Assessment & Plan: Neurological #Methamphetamine intoxication versus withdrawal #Methamphetamine dependence #Agitated Patient became acutely agitated due to claustrophobia from BiPAP mask. Patient was repeatedly removing mask resulting in worsening of her Hypercapnic respiratory failure. A trial of ativan and Haldol were administered in an attempt to reduce her anxiety and agitation, however were inaffective. Patient was then placed on a precedex drip for sedation at which point the patient was sedated enough to comply with the BiPAP mask. Patient was maxed out on Precedex drip still was agitated eventually decision was made to intubate and sedate the patient. Patient extubated 06/23, alert and oriented x 3 follows commands. Management: - Consider certified social workers in health care consult for methamphetamine use Cardiology # Hypotension, secondary to sedation Differential diagnosis: Distributive shock (high probability of septic shock, underlying source right lung pneumonia, less likely anaphylactic/neurogenic) Obstructive shock ruled out PE, CTA was negative, chest x-ray normal, ruled out tension pneumo, ordered echo to rule out cardiac tamponade Cardiogenic shock patient has history of meth use, troponin negative, EKG unremarkable, pending echo Hypovolemic shock patient received 3 L IV fluid in ED, bedside JVP 2.3, ruled out hypovolemic shock Management: -Levophed was discontinued, received low-dose for short while -Patient received IV fluids per sepsis protocol, will continue to monitor -Will treat underlying pneumonia -Follow echocardiogram # Lower extremity edema Patient has history of meth use, concern of heart failure due to meth Echo from 4 years ago shows no sign of heart failure EF is normal Will follow echocardiogram #Hypertension, patient history Patient has history as stated. Patient BP initially elevated, decreased rapidly in ED. Patient was given lisinopril x 1 last night for hypertension Plan Resume lisinopril 20 mg daily home dose Pulmonary #Acute Hypercapnic Respiratory failure Status post extubation 06/23 Management: BiPAP as needed # Extensive right lung pneumonia # Bibasilar pneumonia # Cocci IgM positive # Concern of COPD Will continue IV Zosyn, vancomycin discontinued Will continue IV fluconazole Blood culture /2 shows H influenza, will continue to follow MRSA nares negative Sputum culture 10-25 epithelial cells, contaminated Will optimize antibiotic therapy once cultures have resulted Continue DuoNeb/Mucomyst every 4 hours Chest physiotherapy every 4 hours Gastrointestinal #Elevated Alk phos #Hyperbilirubinemia, resolved #Hepatomegaly #Gallstones Patient on no right upper quadrant tenderness Monitor CMP in a.m. GI prophylaxis: Protonix IVP Renal/Genitourinary #Acute Kidney Injury, resolved Patient has a mild MARCELA. BUN 22, creatinine 1.3, EGFR 52. -Avoid nephrotoxins -Renally dose meds -Monitor daily renal function -For essential medications that are renally cleared, adjust dosing daily -Avoid Iodinated contrast media to prevent contrast induced nephropathy -Avoid Gadolinium-based contrast agents to prevent?nephrogenic systemic fibrosis -Avoid Nephrotoxic medications and drugs that may have a detrimental effect on glomerular pefusion -Continue fluid resuscitation with NS mls/h Endocrine #Diabetes, insulin-dependent Patient has history of diabetes requiring home insulin use. HA1C 11.6% as of 05/12/2024. -Lantus 25 units daily -Lispro 5 units every 6 hours -Sliding scale insulin every 6 hours -Increase to every 6 hours -Goal blood glucose level 140-200 Hematology # Leukocytosis Will treat underlying cause # Normocytic normochromic anemia We will continue to monitor DVT prophylaxis: Lovenox 40 every 12 hours Infectious Disease #Sepsis secondary to CAP # ESBL UTI # Bacteremia, GNR Patient presented with chief complaint shortness of breath and fever at home. Patient found to be septic: Heart rate 130, respirations 25, WBCs 26. Chest x- ray showed right base pneumonia. Lactic acid 3.0, increased to 3.8. Patient was unable to receive IV fluids for extended period of time due to difficulty getting peripheral IV. 2 peripheral IVs successfully placed. Blood and urine cultures drawn. Pro-Lyndon 8.06. Requiring O2 to maintain saturations, On room air at baseline. Patient recieved 3L IVF and maintenence fluids which may have exacerbated her respiratory distress. Patient met SIRS criteria (WBC 41.4, Pulse 126, RR 20) with 2 suspected sources of Pneumonia and UTI as evidenced on Chest/Abdomen/Pelvis CT. Patient received 30 cc/kg and IV antibiotics vancomycin and Zosyn in the ED. Lactic Acid: 2.0, Procalcitonin 12.08 -Blood cultures show 1/2 GNR, H influenza -Urine cultures show ESBL UTI sensitive to Zosyn -Cocci IgM positive -Flu, COVID negative -Consulted infectious disease, appreciate recommendations Antibiotic regimen: -Vanco pharmacy dosing (06/21-06/24) -Zosyn 3.375 g IV every 8 hours (06/21-) -IV fluconazole (06/23- Skin - no acute issues, no evidence of skin breakdown DVT prophylaxis: Lovenox 40 IV twice daily GI prophylaxis: IV Protonix Diet: Carb consistent low Lines: Peripheral IV Code status: Full code Case discussed with Attending Dr. Sanches and Dr. Hensley PGY3. Jennifer Feliciano PGY1 Disclaimer: This note was dictated by speech recognition. Minor errors in marine engine mechanic may be present due to voice recognition software.
[2024-06-24] MEDS: INSULIN LISPRO (AdmeLOG) 1 UNIT/0.01 ML UNIT 5 UNIT SC ×3 (12:16→23:13)
[2024-06-24] MEDS: BENZONATATE 100 MG CAPSULE PO ×2 (12:41→20:29)
[2024-06-24] MEDS: guaiFENesin/DM TABLET 1 EACH PO ×2 (12:52→19:07)
--- NOTE | 2024-06-24 13:56 | PD.RESEVENT ---
Documentation for date of: 06/24/24 Event Note Event Note: ICU Downgrade Patient is a 43-year-old female with a past medical history of hypertension, type Beatties mellitus type 2 insulin-dependent, peripheral neuropathy who was admitted on 06/21/2024 for sepsis, secondary [place] to community-acquired pneumonia with acute hypoxic respiratory failure and MARCELA on admissions. Patient was subsequently started on BiPAP overnight and required ICU level of care for intubation as patient was unable to tolerate BiPAP. In the ICU, antibiotics were continued with Zosyn and vancomycin. Zosyn DC'd. Tested positive for blood cultures 1 out of 2 bottles for H influenza. Tested positive for cocci started on fluconazole IV. UA positive and urine culture showed ESBL continued Vanco. ID consulted given ESBL on urine culture and 1 out of 2 blood cultures showing H influenza. MARCELA resolved. Diabetes mellitus type 2 insulin-dependent on Lantus 25 units a day and lispro 5 units scheduled every 6 hours. Normocytic normochromic anemia no acute intervention. DVT prophylaxis on level. Pending Echo. IM team will take over care on 06/25/2024. - The patient's plan was discussed with attending Dr. Waterman and senior residents Dr. Godfrey. Hiral Jose MD PGY1 Internal Medicine
[2024-06-24] MEDS: INSULIN GLARGINE (Lantus) 5 UNIT/0.05 ML (PER 5 UNITS) 25 UNIT SC (20:36)
[2024-06-24] MEDS: amLODIPine BESYLATE 5 MG TABLET 10 MG PO (20:54)
[2024-06-25] VITALS (23 sets, daily range): BP systolic 145–191; BP diastolic 71–111; PULSE 76–112; RESP 18–97; TEMP 36.6–37.2; O2SAT 87–99; BMI 53.7
[2024-06-25] MEDS: LORazepam 0.5 MG TABLET 1 MG PO (04:32)
[2024-06-25] MEDS: PIPER/TAZO 3.375 GM 3.375 GM/50 ML BAG IV ×3 (05:07→20:33)
[2024-06-25] MEDS: INSULIN LISPRO (AdmeLOG) 1 UNIT/0.01 ML UNIT SC ×4 (05:16→20:35)
[2024-06-25] MEDS: INSULIN LISPRO (AdmeLOG) 1 UNIT/0.01 ML UNIT 5 UNIT SC ×4 (05:16→20:35)
[2024-06-25 06:42] LABS: Basophils # (Auto) 0.1 Thou/mm3 (0.0-0.2); Basophils % (Auto) 1 % (0-2.5); Eosinophils # (Auto) 0.2 Thou/mm3 (0.0-0.5); Eosinophils % (Auto) 1 % (0-10); Hematocrit 35.4 % (36.0-46.0); Hemoglobin 11.1 g/dL (12.0-16.0); Immature Granulocytes % (Auto) 2 % (0-0); Immature Granulocytes Auto 0.32 Thou/mm3 (0.00-0.00); Lymphocytes # (Auto) 2.2 Thou/mm3 (1.0-4.8); Lymphocytes % (Auto) 15 % (10-50); Mean Corpuscular HGB Conc 31.4 g/dl (31.0-37.0); Mean Corpuscular Hemoglobin 26.7 pg (25.0-35.0); Mean Corpuscular Volume 85 fL (80-100); Monocytes # (Auto) 1.4 Thou/mm3 (0.0-0.8); Monocytes % (Auto) 9 % (0-12); Neutrophils # (Auto) 11.1 Thou/mm3 (1.8-7.7); Neutrophils % (Auto) 72 % (37-80); Nucleated Red Blood Cell # 0.04 Thou/mm3 (0.00-0.00); Nucleated Red Blood Cell % 0 /100 WBC (0); Platelet Count 297 Thou/mm3 (140-440); RDW Standard Deviation 45.9 fL (36.4-46.3); Red Blood Count 4.16 Miln/mm3 (4.00-5.20); White Blood Count 15.4 Thou/mm3 (3.6-11.0)
[2024-06-25 07:08] LABS: Alanine Aminotransferase 16 U/L (10-49); Albumin, Serum 3.7 gm/dL (3.5-5.0); Alkaline Phosphatase 292 U/L (46-116); Anion Gap 9 (7-16); Aspartate Amino Transferase 20 U/L (0-34); BUN/Creatinine Ratio 22 Ratio (12-20); Bilirubin,Total 0.9 mg/dL (0.3-1.2); Blood Urea Nitrogen 13 mg/dL (9-23); Calcium 9.1 mg/dL (8.3-10.6); Calcium (Corrected) 9.3 mg/dL (8.5-10.1); Carbon Dioxide 27.3 mMol/L (20.0-31.0); Chloride 99 mMol/L (98-107); Creatinine (Component) 0.6 mg/dL (0.6-1.3); Estimated Creatinine Clearance 167.5 mL/min (>60); Globulin 3.8 gm/dL (2.3-3.5); Glucose 190 mg/dL (74-106); Magnesium 1.7 mg/dL (1.6-2.6); Osmolality,Calculated 275 (275-295); Phosphorous 2.1 mg/dL (2.4-5.1); Potassium 3.5 mMol/L (3.4-5.1); Sodium 135 mMol/L (136-145); Total Protein 7.5 gm/dL (5.7-8.2); eGFR > 60 See Note
--- NOTE | 2024-06-25 09:08 | PC.SS ---
Patient Nati Mccall is a 43 year-old female who was admitted for Sepis/AHRF. SS met with patient at bedside to discuss discharge plan and complete initial assessment. Patient appeared to be alert and oriented.Patient confirmed information on demographics and lives at home with her mother, Shelley Hardy . Prior to being admitted to the hospital the patient was able to ambulate independently with the use of her prosthetic leg and able to complete her own ADLs. Patient's PCP is Adrian Bean. Patient's choice of pharmacy is [facility]. Patient's next of Kin is her mother, Shelley Hardy Discharge plan: [id number]
[2024-06-25] MEDS: POTASSIUM CHLORIDE 20 mEq TABCR PO (09:44)
[2024-06-25] MEDS: ENOXAPARIN SOD INJ 40 MG/0.4 ML SYRINGE SC ×2 (09:44→20:36)
[2024-06-25] MEDS: PANTOPRAZOLE INJ 40 MG VIAL IVP (09:44)
[2024-06-25] MEDS: Lisinopril 20 MG TABLET PO (09:44)
[2024-06-25] MEDS: Magnesium Sulfate 4 GM Ivpb 4 GM/50 ML BAG IV (09:48)
[2024-06-25] MEDS: NAPH,KPH MBDB 1 PACKET (1.5 GM) 2 PACKET PO (09:48)
[2024-06-25] MEDS: FLUCONAZOLE/NS 400 MG IVPB 400 MG/200 ML BAG 100 MG IV ×2 (09:48→20:33)
[2024-06-25] MEDS: ACETYLCYSTEINE SOL 20% 4 ML NEBU 3 ML INH ×3 (10:41→22:24)
[2024-06-25] MEDS: ALBUTEROL/IPRATROPIUM (Duoneb) RT SOL 3 ML NEBU INH ×3 (10:41→22:24)
[2024-06-25] MEDS: amLODIPine BESYLATE 5 MG TABLET 10 MG PO (11:51)
--- NOTE | 2024-06-25 13:27 | PD.RESPRO ---
Documentation for date of: 06/25/24 Subjective Subjective Interval history: Patient was hypertensive 199/95, given 1 dose of hydralazine with improvement. Patient also received 1 push of Ativan due to withdrawals from meth. Patient seen and examined at bedside. Patient is mildly lethargic. Denies chest pain, fevers, chills, shortness of breath. Continue IV antibiotics and fluconazole. Repeat blood cultures drawn due to increased WBCs. Added amlodipine for better blood pressure control. Exam Vital Signs Temp Pulse Resp BP Pulse Ox O2 Del Method O2 Flow Rate 97.9 F 100 26 H 175/111 H 99 Nasal Cannula 3 06/25/24 04:18 06/25/24 11:51 06/25/24 10:48 06/25/24 11:51 06/25/24 10:48 06/25/24 04:18 06/25/24 10:48 FiO2 30 06/23/24 18:24 Narrative Exam Physical Exam General: 43-year-old female, morbidly obese HEENT: Normocephalic, atraumatic, mucous membranes moist, pupils bilaterally reactive Heart: Regular rhythm, tachycardic, no murmurs. Lungs: Normal breath sounds heard bilaterally, no wheezing and crackles. Very poor lung sounds due to body habitus. Abdomen: Soft, obese, nondistended, nontender, positive bowel sounds. Mid-abdomen scar noted. Neurologic: Alert and oriented x 3, follows commands, able to move all 4 extremities Extremities: 2+ edema right lower extremity, Left leg below-knee amputation noted. Stasis dermatitis. Skin: No rash or ecchymoses. Small scab noted on right arm, dry skin bilateral legs. Objective Labs 06/25/24 04:41 06/25/24 04:41 Labs: Laboratory Results - last 24 hr 06/25/24 04:41 WBC 15.4 H RBC 4.16 Hgb 11.1 L Hct 35.4 L MCV 85 MCH 26.7 MCHC 31.4 RDW Std Deviation 45.9 Plt Count 297 D Neut % (Auto) 72 Lymph % (Auto) 15 [place] % (Auto) 9 Eos % (Auto) 1 Baso % (Auto) 1 Neut # (Auto) 11.1 H Lymph # (Auto) 2.2 [place] # (Auto) 1.4 H Eos # (Auto) 0.2 Baso # (Auto) 0.1 Immature Gran # (Auto) 0.32 H Absolute Nucleated RBC 0.04 H Immature Gran % 2 H Nucleated RBC % 0 Sodium 135 L Potassium 3.5 Chloride 99 Carbon Dioxide 27.3 Anion Gap 9 BUN 13 Creatinine 0.6 Estim Creat Clear Calc 167.5 eGFR > 60 BUN/Creatinine Ratio 22 H Glucose 190 H Calculated Osmolality 275 Calcium 9.1 Corrected Calcium 9.3 Phosphorus 2.1 L Magnesium 1.7 Total Bilirubin 0.9 AST 20 ALT 16 Alkaline Phosphatase 292 H D Total Protein 7.5 Albumin 3.7 Globulin 3.8 H Albumin/Globulin Ratio 1.0 L ABG Interpretation ABG results: 06/21/24 06/21/24 06/21/24 08:27 17:30 20:02 ABG pH 7.27 L 7.30 L ABG pCO2 54 H 50 H ABG pO2 71 L 82 L ABG HCO3 25 24 ABG O2 Saturation 93 96 ABG Base Excess -3 -2 VBG pH 7.39 VBG pCO2 47 VBG pO2 19 VBG Base Excess 3 06/21/24 06/21/24 06/21/24 21:35 21:44 22:41 ABG pH 7.26 L ABG pCO2 56 H ABG pO2 69 L ABG HCO3 25 ABG O2 Saturation 92 ABG Base Excess -3 VBG pH 7.27 L 7.30 L VBG pCO2 53 51 VBG pO2 52 D 55 VBG Base Excess -3 -2 06/22/24 06/22/24 06/22/24 00:42 02:50 04:08 ABG pH 7.32 L 7.22 L D 7.35 D ABG pCO2 47 61 H D 46 D ABG pO2 96 D 83 96 ABG HCO3 24 25 25 ABG O2 Saturation 98 96 99 H ABG Base Excess -2 -4 L -1 VBG pH VBG pCO2 VBG pO2 VBG Base Excess 06/23/24 06/23/24 06/24/24 04:07 14:18 03:59 ABG pH 7.38 7.38 7.37 ABG pCO2 44 45 48 ABG pO2 96 81 L 62 L ABG HCO3 26 27 H 28 H ABG O2 Saturation 98 97 92 ABG Base Excess 1 1 2 VBG pH VBG pCO2 VBG pO2 VBG Base Excess Quality Measures Quality Measures sepsis Current suspected stage: sepsis Possible source: pulmonary Blood cultures ordered: yes Antibiotic ordered: Yes Assessment & Plan Assessment Current Active Medications: Generic Name Dose Route Start Last Admin Trade Name Freq PRN Reason Stop Dose Admin Acetaminophen 650 mg 06/21/24 11:10 Acetaminophen 325 Mg Tablet PO 07/21/24 11:09 Q6H PRN PAIN SCALE 1-3 (mild Hydrocodone Bitart/Acetaminophen 1 tab 06/21/24 13:33 Hydrocodone/Apap 5/325 Tablet PO 06/26/24 13:32 Q4HR PRN PAIN SCALE 4-10(Mod-Sev Protocol Acetylcysteine 3 ml 06/22/24 11:00 06/25/24 10:41 Acetylcysteine Melina 20% 4 Ml Nebu INH 07/22/24 10:59 3 ml Q4HRRT PATSY Administration Albuterol/Ipratropium 3 ml 06/21/24 17:25 06/25/24 10:41 Albuterol/Ipratropium (Duoneb) Rt Melina 3 Ml Nebu INH 07/21/24 17:24 3 ml Q4HRRT PATSY Administration Amlodipine Besylate 10 mg 06/25/24 10:30 06/25/24 11:51 Amlodipine Besylate 5 Mg Tablet PO 07/25/24 10:29 10 mg QDAY PATSY Administration Benzonatate 100 mg 06/21/24 14:52 06/24/24 20:29 Benzonatate 100 Mg Capsule PO 07/21/24 14:51 100 mg Q8HR PRN Administration COUGH Protocol Dextrose 25 ml 06/21/24 13:25 Dextrose 50%-Water Inj 50 Ml Syringe IV 07/21/24 13:24 Q15MIN PRN BG 50-70 responsive npo pt Dextrose 50 ml 06/21/24 13:25 Dextrose 50%-Water Inj 50 Ml Syringe IV 07/21/24 13:24 Q15MIN PRN BG <50 OR BG <70 & pt unresponsive Enoxaparin Sodium 40 mg 06/22/24 21:00 06/25/24 09:44 Enoxaparin Sod Inj 40 Mg/0.4 Ml Syringe SC 07/06/24 20:59 40 mg BID PATSY Administration Glucagon 1 mg 06/21/24 13:25 Glucagon Inj 1 Mg Vial IM Q15MIN PRN BG <70, and no IV access Guaifenesin/Dextromethorphan 1 each 06/21/24 11:13 06/24/24 19:07 Guaifenesin/Dm Tablet PO 07/21/24 11:12 1 each Q4HR PRN Administration COUGH Protocol Piperacillin/Tazobactam/Dextrose 3.375 gm in 50 mls @ 12.5 mls/hr 06/21/24 14:00 06/25/24 05:07 Zosyn IV 06/28/24 13:59 12.5 mls/hr Q8HR PATSY Administration Fluconazole 400 mg in 200 mls @ 100 mls/hr 06/24/24 09:00 06/25/24 09:48 Diflucan/Ns Ivpb IV 07/01/24 08:59 100 mls/hr BID PATSY Administration Insulin Glargine 25 unit 06/24/24 21:00 06/24/24 20:36 Insulin Glargine (Lantus) 5 Unit/0.05 Ml (Per 5 Units) SC 07/24/24 20:59 25 unit HS PATSY Administration Insulin Human Lispro 0 unit 06/25/24 11:30 06/25/24 11:55 Insulin Lispro (Admelog) 1 Unit/0.01 Ml Unit SC 07/25/24 11:29 4 unit ACHS PATSY Administration Protocol Insulin Human Lispro 5 unit 06/25/24 11:30 06/25/24 11:55 Insulin Lispro (Admelog) 1 Unit/0.01 Ml Unit SC 07/25/24 11:29 5 unit ACHS PATSY Administration Labetalol HCl 10 mg 06/25/24 00:29 Labetalol Inj 5 Mg/Ml Vial 20 Ml IVP 07/25/24 00:29 Q2H PRN For SBP>170mmHg Lisinopril 20 mg 06/25/24 09:00 06/25/24 09:44 Lisinopril 20 Mg Tablet PO 07/25/24 08:59 20 mg QDAY PATSY Administration Ondansetron HCl 4 mg 06/21/24 11:10 Ondansetron Inj 2 Mg/Ml Inj 2 Ml IV 07/21/24 11:09 Q6H PRN NAUSEA OR VOMITING Protocol Pantoprazole Sodium 40 mg 06/23/24 09:00 06/25/24 09:44 Pantoprazole Inj 40 Mg Vial IVP 07/23/24 08:59 40 mg QDAY PATSY Administration Pharmacy Consult 1 each 06/21/24 13:29 Pharmacy Renal Dose Adjustment 1 Ea XX 07/21/24 13:28 PRN PRN CONSULT Plan 43 y/o F with PMHx significant for insulin-dependent diabetes, hypertension, peripheral neuropathy presented to ED with chief complaint of shortness of breath and fever x 2 days, admitted for sepsis secondary to CAP. #Sepsis secondary to CAP, H. influenzae #Acute hypoxic respiratory failure #Bacteremia, H. influenzae #ESBL UTI Patient presented with chief complaint shortness of breath and fever at home. Patient found to be septic: Heart rate 130, respirations 25, WBCs 26. Chest x-ray showed right base pneumonia. Lactic acid 3.0, increased to 3.8. Patient was unable to receive IV fluids for extended period of time due to difficulty getting peripheral IV. 2 peripheral IVs successfully placed. Blood and urine cultures drawn. Pro-Lyndon 8.06. Requiring O2 to maintain saturations, On room air at baseline. Patient required BiPAP due to severe hypercapnia. Patient ended up being upgraded to ICU for intubation due to high hypoxic respiratory failure. Patient extubated 06/23, transition from BiPAP to nasal cannula. Downgraded to telemetry. Lab results showed ESBL UTI, H. influenzae sputum and blood cultures, cocci positive. Infectious diseases consulted. -Zosyn 3.375 g IV every 8 hours (started 06/21) -Tessalon as needed for cough -DuoNebs as needed -Mucomyst as needed -O2, titrate as needed -Fluconazole 400 mg IV twice daily -Follow-up ID consult -CPT every 4 hours -Repeat blood cultures drawn, follow-up #MARCELA, prerenal due to dehydration, resolved. Patient has a mild MARCELA. BUN 22, creatinine 1.3, EGFR 52. Likely dehydration in setting of sepsis. Treated with IVF. Patient MARCELA has resolved: BUN 13, creatinine 0.6, eGFR greater than 60. -Monitor daily renal function #Meth abuse U-Tox positive for meth. Patient knowledges meth use on occasion. No history of heart disease known, last echo 4 years ago. -Counseled against drug use -Echo ordered, follow-up #Diabetes, insulin-dependent Patient has history of diabetes requiring home insulin use. HA1C 11.6% as of 05/12/2024. -Lantus 25 units daily -Lispro 5 units ACHS -ISS #Hypertension, patient history Patient has history as stated. Patient BP initially elevated, decreased rapidly in ED. Received IVF. Patient had periods of hypotension, resolved. Patient now hypertensive. -Resume home lisinopril 20 mg p.o. daily -Added amlodipine 10 mg p.o. daily DVT prophylaxis: Lovenox GI prophylaxis: Protonix Diet: Carb consistent, renal Lines: Peripheral IVs Code status: Full code Plan of care discussed with attending Dr. Waterman. Steve Ridley MD PGY?1 Attending Provider Attestation/Addendum I have examined the patient, reviewed labs and imaging findings, discussed the case with the resident(s), and reviewed entered orders. I agree with the plan of care as outlined in this note, with these additional summaries/recommendations: Patient seen at bedside. No acute overnight events. She is seen sitting up in hospital bed and answering questions appropriately. Counseled patient on substance abuse discussed that we will give low-dose Ativan if needed for withdrawal symptoms. Patient originally admitted to the ICU for acute hypoxic/hypercapnic respiratory failure with BiPAP intolerance. Likely multifactorial secondary to bacterial pneumonia, cocci pneumonitis, and likely undiagnosed COPD. We will continue breathing treatments, antibiotics, and fluconazole. Patient was also noted to have ESBL UTI and bacteremia. Patient is continued on IV Zosyn and infectious disease has been consulted, recommendations appreciated. Continue basal and bolus insulin for uncontrolled diabetes mellitus type 2. Target BS of 140-1 80 while hospitalized. Diabetic education. Blood pressure uncontrolled and resumed home lisinopril and we will continue to adjust antihypertensive regimen as needed. Pending echocardiogram to rule out CHF. We will obtain physical therapy consultation. Repeat hematology and chemistry panel in AM. Dr. Waterman
--- NOTE | 2024-06-25 17:39 | PC.NURSE ---
Report given to JUNIOR Huston @ this time
[2024-06-25] MEDS: guaiFENesin/DM TABLET 1 EACH PO (20:33)
[2024-06-25] MEDS: INSULIN GLARGINE (Lantus) 5 UNIT/0.05 ML (PER 5 UNITS) 25 UNIT SC (20:34)
[2024-06-26] VITALS (17 sets, daily range): BP systolic 122–178; BP diastolic 69–130; PULSE 78–115; RESP 12–33; TEMP 36.1–36.6; O2SAT 90–98; BMI 53.7; BMI 13.0
[2024-06-26] MEDS: ALBUTEROL/IPRATROPIUM (Duoneb) RT SOL 3 ML NEBU INH ×3 (02:08→18:58)
[2024-06-26] MEDS: ACETYLCYSTEINE SOL 20% 4 ML NEBU 3 ML INH ×2 (02:08→18:58)
[2024-06-26] MEDS: PIPER/TAZO 3.375 GM 3.375 GM/50 ML BAG IV (05:08)
[2024-06-26 06:13] LABS: Basophils # (Auto) 0.1 Thou/mm3 (0.0-0.2); Basophils % (Auto) 1 % (0-2.5); Eosinophils # (Auto) 0.3 Thou/mm3 (0.0-0.5); Eosinophils % (Auto) 2 % (0-10); Hematocrit 33.9 % (36.0-46.0); Hemoglobin 10.7 g/dL (12.0-16.0); Immature Granulocytes % (Auto) 7 % (0-0); Immature Granulocytes Auto 1.08 Thou/mm3 (0.00-0.00); Lymphocytes # (Auto) 2.5 Thou/mm3 (1.0-4.8); Lymphocytes % (Auto) 16 % (10-50); Mean Corpuscular HGB Conc 31.6 g/dl (31.0-37.0); Mean Corpuscular Volume 85 fL (80-100); Monocytes # (Auto) 1.3 Thou/mm3 (0.0-0.8); Monocytes % (Auto) 8 % (0-12); Neutrophils # (Auto) 10.3 Thou/mm3 (1.8-7.7); Neutrophils % (Auto) 66 % (37-80); Nucleated Red Blood Cell # 0.04 Thou/mm3 (0.00-0.00); Nucleated Red Blood Cell % 0 /100 WBC (0); Platelet Count 325 Thou/mm3 (140-440); RDW Standard Deviation 46.2 fL (36.4-46.3); Red Blood Count 3.97 Miln/mm3 (4.00-5.20); White Blood Count 15.4 Thou/mm3 (3.6-11.0)
[2024-06-26 06:47] LABS: Alanine Aminotransferase 15 U/L (10-49); Albumin, Serum 3.4 gm/dL (3.5-5.0); Albumin/Globulin Ratio 0.9 (1.2-2.2); Alkaline Phosphatase 239 U/L (46-116); Anion Gap 8 (7-16); Aspartate Amino Transferase 14 U/L (0-34); BUN/Creatinine Ratio 23 Ratio (12-20); Bilirubin,Total 0.5 mg/dL (0.3-1.2); Blood Urea Nitrogen 16 mg/dL (9-23); Calcium (Corrected) 9.5 mg/dL (8.5-10.1); Carbon Dioxide 26.9 mMol/L (20.0-31.0); Chloride 99 mMol/L (98-107); Creatinine (Component) 0.7 mg/dL (0.6-1.3); Estimated Creatinine Clearance 143.6 mL/min (>60); Globulin 3.8 gm/dL (2.3-3.5); Glucose 287 mg/dL (74-106); Magnesium 1.8 mg/dL (1.6-2.6); Osmolality,Calculated 279 (275-295); Phosphorous 2.5 mg/dL (2.4-5.1); Potassium 3.6 mMol/L (3.4-5.1); Sodium 134 mMol/L (136-145); Total Protein 7.2 gm/dL (5.7-8.2); eGFR > 60 See Note
[2024-06-26] MEDS: INSULIN LISPRO (AdmeLOG) 1 UNIT/0.01 ML UNIT 5 UNIT SC ×4 (07:34→20:54)
[2024-06-26] MEDS: INSULIN LISPRO (AdmeLOG) 1 UNIT/0.01 ML UNIT SC ×4 (07:34→20:55)
--- NOTE | 2024-06-26 09:25 | ESPR_ITS ---
Subjective Subjective Interval history: abnormal imaging. neg cocci at [facility] a few yrs ago. afebrile. dm, a1c >10 . procal elevated. Exam Vital Signs Temp Pulse Resp BP Pulse Ox O2 Del Method O2 Flow Rate 97.3 F 110 H 19 122/69 97 Nasal Cannula 3 06/26/24 04:00 06/26/24 06:55 06/26/24 06:55 06/26/24 04:00 06/26/24 06:55 06/26/24 04:00 06/26/24 06:55 FiO2 30 06/26/24 04:00 Narrative Exam on O2. no rash. lives locally. not working. Objective - Internal Medicine Labs 06/26/24 04:40 06/26/24 04:40 Labs: Laboratory Results - last 24 hr 06/26/24 04:40 WBC 15.4 H RBC 3.97 L Hgb 10.7 L Hct 33.9 L MCV 85 MCH 27.0 MCHC 31.6 RDW Std Deviation 46.2 Plt Count 325 Neut % (Auto) 66 Lymph % (Auto) 16 [place] % (Auto) 8 Eos % (Auto) 2 Baso % (Auto) 1 Neut # (Auto) 10.3 H Lymph # (Auto) 2.5 [place] # (Auto) 1.3 H Eos # (Auto) 0.3 Baso # (Auto) 0.1 Immature Gran # (Auto) 1.08 H Absolute Nucleated RBC 0.04 H Immature Gran % 7 H Nucleated RBC % 0 Sodium 134 L Potassium 3.6 Chloride 99 Carbon Dioxide 26.9 Anion Gap 8 BUN 16 Creatinine 0.7 Estim Creat Clear Calc 143.6 eGFR > 60 BUN/Creatinine Ratio 23 H Glucose 287 H D Calculated Osmolality 279 Calcium 9.0 Corrected Calcium 9.5 Phosphorus 2.5 Magnesium 1.8 Total Bilirubin 0.5 AST 14 ALT 15 Alkaline Phosphatase 239 H D Total Protein 7.2 Albumin 3.4 L Globulin 3.8 H Albumin/Globulin Ratio 0.9 L ABG Interpretation ABG results: 06/21/24 06/21/24 06/21/24 08:27 17:30 20:02 ABG pH 7.27 L 7.30 L ABG pCO2 54 H 50 H ABG pO2 71 L 82 L ABG HCO3 25 24 ABG O2 Saturation 93 96 ABG Base Excess -3 -2 VBG pH 7.39 VBG pCO2 47 VBG pO2 19 VBG Base Excess 3 06/21/24 06/21/24 06/21/24 21:35 21:44 22:41 ABG pH 7.26 L ABG pCO2 56 H ABG pO2 69 L ABG HCO3 25 ABG O2 Saturation 92 ABG Base Excess -3 VBG pH 7.27 L 7.30 L VBG pCO2 53 51 VBG pO2 52 D 55 VBG Base Excess -3 -2 06/22/24 06/22/24 06/22/24 00:42 02:50 04:08 ABG pH 7.32 L 7.22 L D 7.35 D ABG pCO2 47 61 H D 46 D ABG pO2 96 D 83 96 ABG HCO3 24 25 25 ABG O2 Saturation 98 96 99 H ABG Base Excess -2 -4 L -1 VBG pH VBG pCO2 VBG pO2 VBG Base Excess 06/23/24 06/23/24 06/24/24 04:07 14:18 03:59 ABG pH 7.38 7.38 7.37 ABG pCO2 44 45 48 ABG pO2 96 81 L 62 L ABG HCO3 26 27 H 28 H ABG O2 Saturation 98 97 92 ABG Base Excess 1 1 2 VBG pH VBG pCO2 VBG pO2 VBG Base Excess Assessment & Plan A&P Narrative presumptive cocci dm, II, uncontrolled, a1c >10 noted (10.7) hld obesity, bMI 53.7 noted. pvd with prior rt 5th ray and L bka noted. uses a prosthetic for L bka many pts will have statin toxicity with flucon in combination, so its ok to continue but if any myalgias, then stop the statin and consider restarting once off the flucon. with no fever, will change rx for pneumonia to a po agent. augmentin. note that pt had an elevated procal on arrival so her cocci may be falsely positive if home, she may need some O2 for a while. please control dm II and have primary f/u on the cocci at [facility]. note that it was neg in 2019. I can only see if referred by primary with cxr report and pos cocci at reference lab. its an insurance rule. if cocci neg at d, then repeat cxr in 4-6 weeks. ok to repeat cocci at [facility] in a week as well. Time Spent With Patient Time: Total time spent is greater than 50% in coordination of care (as documented) at patient's floor/unit and/or counseling patient:
[2024-06-26] MEDS: ENOXAPARIN SOD INJ 40 MG/0.4 ML SYRINGE SC ×2 (09:47→20:53)
[2024-06-26] MEDS: amLODIPine BESYLATE 5 MG TABLET 10 MG PO (09:47)
[2024-06-26] MEDS: PANTOPRAZOLE INJ 40 MG VIAL IVP (09:48)
[2024-06-26] MEDS: Lisinopril 20 MG TABLET PO (09:48)
[2024-06-26] MEDS: FLUCONAZOLE 100 MG TABLET 400 MG PO (09:48)
--- NOTE | 2024-06-26 10:31 | PC.SS ---
SS follow up note; Repeat Blood cultures pending
[2024-06-26 12:03] LABS: Hepatitis C Antibody Non Reactive (Non React)
--- NOTE | 2024-06-26 12:55 | ESCONSULT_ITS ---
RE: PASQUALE CAMPA : 1980 DATE OF CONSULTATION: 06/26/2024 REFERRING PHYSICIAN: hospitalist team REASON FOR CONSULTATION: Diabetes, pneumonia, and positive Valley fever test. HISTORY OF PRESENT ILLNESS: The patient is a 43-year-old admitted for respiratory symptoms. She needs oxygen and has very elevated procalcitonin on arrival, a finding consistent with more of a bacterial process than a fungal one, but her Valley fever test was done and it was positive. She is diabetic. Her A1c is greater than 10 and she has known peripheral vascular disease and hyperlipidemia is heavyset with a BMI of between 50 and 60. She also has sleep apnea for which she uses a CPAP device. She was intubated for a short while and has been extubated. She seems to be doing better. There was apparently positive blood cultures for H. flu, which is consistent with the findings of the sputum as well. Positive urine is also with E. coli which shows urinary symptoms and single positive blood cultures for H. flu. This was done on the . As a result, she probably does not have cocci, but we need to be cautious. We will focus on the positive blood cultures as they are more important than any other microbiology. Her urinalysis also shows only 5 white cells with 14 red cells and 20 epithelial cells, so it is not a very good collection. PAST MEDICAL HISTORY: Include diabetes, peripheral vascular disease, hypertension, hyperlipidemia, and some anxiety and neurosis, which she complains of today. SURGICAL HISTORY: Includes a left BKA and rt 5th ray ALLERGIES: NONE KNOWN. IMMUNIZATIONS: Last tetanus is not known. She does not take shot every year, has had COVID vaccine and has had pneumococcal vaccine, which is nice. She goes to [facility] and diabetes is indication. FAMILY HISTORY: Positive for her mother having diabetes. SOCIAL HISTORY: She lives with her mother, not working currently. 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 PHYSICAL EXAMINATION: On exam, the patient is on some oxygen. She is at 3 liters per minute, was intubated previously and is on BiPAP at night when she is sleeping. HEENT: Benign. HEART: Benign. LUNGS: Benign. ABDOMEN: Benign. She has occasional moist cough noted. ASSESSMENT: H. flu bacteremia with a positive Valley Fever test and prior positive Valley fever test noted in 2019. Negative at [facility] at that time (2019). RECOMMENDATIONS: The patient can go home on fluconazole and Augmentin. If you want to keep her for a couple of days that is fine. I note that blood cultures were repeated on the and are neg so far,you should wait for those blood cultures to be neg for 48 hours. If this is , you may only have to wait 24 more hours. They were obtained at 10:57 on 03/25/25. I will check on her superficially tomorrow. No echocardiogram is needed. No other studies are needed at this time. I will look forward to seeing her tomorrow. I look forward to reviewing her case on if she remains, but she may go home at your discretion. I can see her in clinic if her cocci is pos at [facility], but she has to be referred with that serology and the cxr report DT: 10:03:55 TT: 12:07:00 Ref: [id number] - TID: [id number] [facility]
--- NOTE | 2024-06-26 13:25 | ESPR_ITS ---
<Statement entered by Garret Sanabria MD - 06/26/24 14:26> Patient was seen and examined at the bedside this morning. Patient was doing well and was reporting that she had vivid dreams and needs something for anxiety. Patient has a history of methamphetamine and can be given Ativan for anxiety. Dr Cordova saw the patient recommended to start Augmentin and complete course for 2 weeks total. We added nifedipine 30 mg for blood pressure management. Will continue with fluconazole for cocci. Repeat blood cultures are still pending. Electrolytes were repleted. All labs and orders were reviewed. I saw and examined the patient, and I agree with current management stated by Dr Keyana MD,PGY1. Plan of care was discussed with the attending physician and resident physician. Disclaimer: Despite multiple revisions, due to the dictation software being used, the document bellow may not be free of grammatical errors including phonetic/typographic errors. However, this does not deter from our commitment to providing health care in the patient's best interest in mind. Dr. Elly MD, PGY 2 Documentation for date of: 06/26/24 Subjective Subjective Interval history: No overnight events. Patient seen and examined at bedside. Patient resting comfortably. Denies fever, chills, shortness of breath, nausea, vomiting. Will start nifedipine tomorrow for BP control. Patient started on Augmentin per ID recs. Exam Vital Signs Temp Pulse Resp BP Pulse Ox O2 Del Method O2 Flow Rate 97.7 F 96 33 H 127/79 95 Nasal Cannula 3 06/26/24 12:00 06/26/24 12:06/26/24 12:06/26/24 12:06/26/24 12:06/26/24 12:06/26/24 11:50 FiO2 30 06/26/24 04:00 Narrative Exam Physical Exam General: 43-year-old female, morbidly obese HEENT: Normocephalic, atraumatic, mucous membranes moist, pupils bilaterally reactive Heart: Regular rhythm, tachycardic, no murmurs. Lungs: Normal breath sounds heard bilaterally, no wheezing and crackles. Very poor lung sounds due to body habitus. Abdomen: Soft, obese, nondistended, nontender, positive bowel sounds. Mid- abdomen scar noted. Neurologic: Alert and oriented x 3, follows commands, able to move all 4 extremities Extremities: 2+ edema right lower extremity, Left leg below-knee amputation noted. Stasis dermatitis. Skin: No rash or ecchymoses. Small scab noted on right arm, dry skin bilateral legs. Objective Labs 06/27/24 05:02 06/26/24 04:40 Labs: Laboratory Results - last 24 hr 06/26/24 04:40 WBC 15.4 H RBC 3.97 L Hgb 10.7 L Hct 33.9 L MCV 85 MCH 27.0 MCHC 31.6 RDW Std Deviation 46.2 Plt Count 325 Neut % (Auto) 66 Lymph % (Auto) 16 Garza % (Auto) 8 Eos % (Auto) 2 Baso % (Auto) 1 Neut # (Auto) 10.3 H Lymph # (Auto) 2.5 Garza # (Auto) 1.3 H Eos # (Auto) 0.3 Baso # (Auto) 0.1 Immature Gran # (Auto) 1.08 H Absolute Nucleated RBC 0.04 H Immature Gran % 7 H Nucleated RBC % 0 Sodium 134 L Potassium 3.6 Chloride 99 Carbon Dioxide 26.9 Anion Gap 8 BUN 16 Creatinine 0.7 Estim Creat Clear Calc 143.6 eGFR > 60 BUN/Creatinine Ratio 23 H Glucose 287 H D Calculated Osmolality 279 Calcium 9.0 Corrected Calcium 9.5 Phosphorus 2.5 Magnesium 1.8 Total Bilirubin 0.5 AST 14 ALT 15 Alkaline Phosphatase 239 H D Total Protein 7.2 Albumin 3.4 L Globulin 3.8 H Albumin/Globulin Ratio 0.9 L Hepatitis C Antibody Non Reactive ABG Interpretation ABG results: 06/21/24 06/21/24 06/21/24 08:27 17:30 20:02 ABG pH 7.27 L 7.30 L ABG pCO2 54 H 50 H ABG pO2 71 L 82 L ABG HCO3 25 24 ABG O2 Saturation 93 96 ABG Base Excess -3 -2 VBG pH 7.39 VBG pCO2 47 VBG pO2 19 VBG Base Excess 3 06/21/24 06/21/24 06/21/24 21:35 21:44 22:41 ABG pH 7.26 L ABG pCO2 56 H ABG pO2 69 L ABG HCO3 25 ABG O2 Saturation 92 ABG Base Excess -3 VBG pH 7.27 L 7.30 L VBG pCO2 53 51 VBG pO2 52 D 55 VBG Base Excess -3 -2 06/22/24 06/22/24 06/22/24 00:42 02:50 04:08 ABG pH 7.32 L 7.22 L D 7.35 D ABG pCO2 47 61 H D 46 D ABG pO2 96 D 83 96 ABG HCO3 24 25 25 ABG O2 Saturation 98 96 99 H ABG Base Excess -2 -4 L -1 VBG pH VBG pCO2 VBG pO2 VBG Base Excess 06/23/24 06/23/24 06/24/24 04:07 14:18 03:59 ABG pH 7.38 7.38 7.37 ABG pCO2 44 45 48 ABG pO2 96 81 L 62 L ABG HCO3 26 27 H 28 H ABG O2 Saturation 98 97 92 ABG Base Excess 1 1 2 VBG pH VBG pCO2 VBG pO2 VBG Base Excess Quality Measures Quality Measures sepsis Current suspected stage: sepsis Possible source: pulmonary Blood cultures ordered: yes Antibiotic ordered: Yes Assessment & Plan Assessment Current Active Medications: Generic Name Dose Route Start Last Admin Trade Name Freq PRN Reason Stop Dose Admin Acetaminophen 650 mg 06/21/24 11:10 Acetaminophen 325 Mg Tablet PO 07/21/24 11:09 Q6H PRN PAIN SCALE 1-3 (mild Hydrocodone Bitart/Acetaminophen 1 tab 06/21/24 13:33 Hydrocodone/Apap 5/325 Tablet PO 06/26/24 13:32 Q4HR PRN PAIN SCALE 4-10(Mod-Sev Acetylcysteine 3 ml 06/22/24 11:00 06/26/24 11:49 Acetylcysteine Melina 20% 4 Ml Nebu INH 07/22/24 10:59 Not Given Q4HRRT PATSY Albuterol/Ipratropium 3 ml 06/21/24 17:25 06/26/24 11:49 Albuterol/Ipratropium (Duoneb) Rt Melina 3 Ml Nebu INH 07/21/24 17:24 Not Given Q4HRRT PATSY Amoxicillin/Clavulanate Potassium 1 tab 06/26/24 21:00 Amoxicillin/Pot Clav 875 Tablet PO 07/03/24 20:59 BID PATSY Benzonatate 100 mg 06/21/24 14:52 06/24/24 20:29 Benzonatate 100 Mg Capsule PO 07/21/24 14:51 100 mg Q8HR PRN Administration COUGH Protocol Dextrose 25 ml 06/21/24 13:25 Dextrose 50%-Water Inj 50 Ml Syringe IV 07/21/24 13:24 Q15MIN PRN BG 50-70 responsive npo pt Dextrose 50 ml 06/21/24 13:25 Dextrose 50%-Water Inj 50 Ml Syringe IV 07/21/24 13:24 Q15MIN PRN BG <50 OR BG <70 & pt unresponsive Enoxaparin Sodium 40 mg 06/22/24 21:00 06/26/24 09:47 Enoxaparin Sod Inj 40 Mg/0.4 Ml Syringe SC 07/06/24 20:59 40 mg BID PATSY Administration Fluconazole 400 mg 06/26/24 09:00 06/26/24 09:48 Fluconazole 100 Mg Tablet PO 07/03/24 08:59 400 mg QDAY PATSY Administration Glucagon 1 mg 06/21/24 13:25 Glucagon Inj 1 Mg Vial IM Q15MIN PRN BG <70, and no IV access Guaifenesin/Dextromethorphan 1 each 06/21/24 11:13 06/25/24 20:33 Guaifenesin/Dm Tablet PO 07/21/24 11:12 1 each Q4HR PRN Administration COUGH Protocol Hydroxyzine HCl 25 mg 06/26/24 11:41 Hydroxyzine Hcl 25 Mg Tablet PO 07/26/24 11:40 Q6HR PRN anxiety Insulin Glargine 28 unit 06/26/24 21:00 Insulin Glargine (Lantus) 5 Unit/0.05 Ml (Per 5 Units) SC 07/26/24 20:59 HS [facility] Insulin Human Lispro 0 unit 06/25/24 11:30 06/26/24 11:24 Insulin Lispro (Admelog) 1 Unit/0.01 Ml Unit SC 07/25/24 11:29 4 unit ACHS PATSY Administration Protocol Insulin Human Lispro 5 unit 06/25/24 11:30 06/26/24 11:24 Insulin Lispro (Admelog) 1 Unit/0.01 Ml Unit SC 07/25/24 11:29 5 unit ACHS PATSY Administration Labetalol HCl 10 mg 06/25/24 00:29 Labetalol Inj 5 Mg/Ml Vial 20 Ml IVP 07/25/24 00:29 Q2H PRN For SBP>170mmHg Lisinopril 20 mg 06/25/24 09:00 06/26/24 09:48 Lisinopril 20 Mg Tablet PO 07/25/24 08:59 20 mg QDAY PATSY Administration Nifedipine 30 mg 06/26/24 12:00 06/26/24 11:42 Nifedipine Xl 30 Mg Tabcr PO 07/26/24 11:59 Not Given QDAY PATSY Ondansetron HCl 4 mg 06/21/24 11:10 Ondansetron Inj 2 Mg/Ml Inj 2 Ml IV 07/21/24 11:09 Q6H PRN NAUSEA OR VOMITING Protocol Pantoprazole Sodium 40 mg 06/23/24 09:00 06/26/24 09:48 Pantoprazole Inj 40 Mg Vial IVP 07/23/24 08:59 40 mg QDAY PATSY Administration Pharmacy Consult 1 each 06/21/24 13:29 Pharmacy Renal Dose Adjustment 1 Ea XX 07/21/24 13:28 PRN PRN CONSULT Plan 43 y/o F with PMHx significant for insulin-dependent diabetes, hypertension, peripheral neuropathy presented to ED with chief complaint of shortness of breath and fever x 2 days, admitted for sepsis secondary to CAP. #Sepsis secondary to CAP, H. influenzae #Acute hypoxic respiratory failure #Bacteremia, H. influenzae #ESBL UTI Patient presented with chief complaint shortness of breath and fever at home. Patient found to be septic: Heart rate 130, respirations 25, WBCs 26. Chest x- ray showed right base pneumonia. Lactic acid 3.0, increased to 3.8. Patient was unable to receive IV fluids for extended period of time due to difficulty getting peripheral IV. 2 peripheral IVs successfully placed. Blood and urine cultures drawn. Pro-Lyndon 8.06. Requiring O2 to maintain saturations, On room air at baseline. Patient required BiPAP due to severe hypercapnia. Patient ended up being upgraded to ICU for intubation due to high hypoxic respiratory failure. Patient extubated 06/23, transition from BiPAP to nasal cannula. Downgraded to telemetry. Lab results showed ESBL UTI, H. influenzae sputum and blood cultures, cocci positive. Infectious diseases consulted. ID consulted, recommending p.o. Augmentin and fluconazole. -Zosyn 3.375 g IV every 8 hours (06/21?06/26) -Augmentin 875 p.o. twice daily (06/26?07/04) -Tessalon as needed for cough -DuoNebs as needed -Mucomyst as needed -O2, titrate as needed -Fluconazole 400 mg p.o. daily -Follow-up ID consult -CPT every 4 hours -Repeat blood cultures drawn, follow-up #MARCELA, prerenal due to dehydration, resolved. Patient has a mild MARCELA. BUN 22, creatinine 1.3, EGFR 52. Likely dehydration in setting of sepsis. Treated with IVF. Patient MARCELA has resolved: BUN 13, creatinine 0.6, eGFR greater than 60. -Monitor daily renal function #Meth abuse U-Tox positive for meth. Patient knowledges meth use on occasion. No history of heart disease known, last echo 4 years ago. -Counseled against drug use -Echo ordered, follow-up #Diabetes, insulin-dependent Patient has history of diabetes requiring home insulin use. HA1C 11.6% as of 05/12/2024. -Lantus 28 units daily -Lispro 5 units ACHS -ISS #Hypertension, patient history Patient has history as stated. Patient BP initially elevated, decreased rapidly in ED. Received IVF. Patient had periods of hypotension, resolved. Patient now hypertensive. -Resume home lisinopril 20 mg p.o. daily -Added nifedipine 30 mg p.o. daily DVT prophylaxis: Lovenox GI prophylaxis: Protonix Diet: Carb consistent, renal Lines: Peripheral IVs Code status: Full code Plan of care discussed with senior resident Dr. Sanabria PGY?[address] Waterman. Steve Ridley MD PGY?1 Attending Provider Attestation/Addendum I have examined the patient, reviewed labs and imaging findings, discussed the case with the resident(s), and reviewed entered orders. I agree with the plan of care as outlined in this note, with these additional summaries/recommendations: Patient seen at bedside. No acute overnight events. She is seen sitting up in hospital bed and answering questions appropriately. She reports she was able to use bedside commode. Patient was seen by physical therapy today who recommend home health with PT when medically cleared. Counseled patient on substance abuse discussed that we will give low-dose Ativan if needed for withdrawal symptoms. Patient originally admitted to the ICU for acute hypoxic/hypercapnic respiratory failure with BiPAP intolerance. Likely multifactorial secondary to bacterial pneumonia, cocci pneumonitis, and undiagnosed COPD. We will continue breathing treatments, antibiotics, and fluconazole. Patient was also noted to have ESBL UTI and bacteremia. Patient is was seen by infectious disease and switched to oral augmentin. Leukocytosis persists although significantly improved. Repeat blood cxs for bacteremia pending. Continue basal and bolus insulin for uncontrolled diabetes mellitus type 2. Target BS of 140-180 while hospitalized. Diabetic education. Blood pressure uncontrolled and nifedipine added to regimen today, continue lisinopril. Pending echocardiogram to rule out CHF. Repeat hematology and chemistry panel in AM. Dr. Waterman
[2024-06-26 14:01] LABS: HIV (1&2) Antibody Rapid Non-Reactive
[2024-06-26] MEDS: BENZONATATE 100 MG CAPSULE PO (18:09)
[2024-06-26] MEDS: AMOXICILLIN/POT CLAV 875 TABLET 1 TAB PO (20:53)
[2024-06-26] MEDS: INSULIN GLARGINE (Lantus) 5 UNIT/0.05 ML (PER 5 UNITS) 28 UNIT SC (20:54)
[2024-06-26] MEDS: hydrOXYzine HCL 25 MG TABLET PO (23:02)
[2024-06-27] VITALS (7 sets, daily range): BP systolic 149–158; BP diastolic 74–84; PULSE 78–99; RESP 18–22; TEMP 35.9–36.2; O2SAT 93–99
[2024-06-27] MEDS: ALBUTEROL/IPRATROPIUM (Duoneb) RT SOL 3 ML NEBU INH (06:05)
[2024-06-27 06:35] LABS: Basophils # (Auto) 0.1 Thou/mm3 (0.0-0.2); Basophils % (Auto) 1 % (0-2.5); Eosinophils # (Auto) 0.4 Thou/mm3 (0.0-0.5); Eosinophils % (Auto) 3 % (0-10); Hematocrit 36.1 % (36.0-46.0); Hemoglobin 11.1 g/dL (12.0-16.0); Immature Granulocytes % (Auto) 7 % (0-0); Immature Granulocytes Auto 0.92 Thou/mm3 (0.00-0.00); Lymphocytes # (Auto) 2.9 Thou/mm3 (1.0-4.8); Lymphocytes % (Auto) 23 % (10-50); Mean Corpuscular HGB Conc 30.7 g/dl (31.0-37.0); Mean Corpuscular Hemoglobin 26.2 pg (25.0-35.0); Mean Corpuscular Volume 85 fL (80-100); Monocytes # (Auto) 0.8 Thou/mm3 (0.0-0.8); Monocytes % (Auto) 7 % (0-12); Neutrophils # (Auto) 7.8 Thou/mm3 (1.8-7.7); Neutrophils % (Auto) 60 % (37-80); Nucleated Red Blood Cell # 0.04 Thou/mm3 (0.00-0.00); Nucleated Red Blood Cell % 0 /100 WBC (0); Platelet Count 292 Thou/mm3 (140-440); RDW Standard Deviation 46.5 fL (36.4-46.3); Red Blood Count 4.23 Miln/mm3 (4.00-5.20); White Blood Count 12.9 Thou/mm3 (3.6-11.0)
[2024-06-27 07:34] LABS: Alanine Aminotransferase 15 U/L (10-49); Albumin, Serum 3.6 gm/dL (3.5-5.0); Albumin/Globulin Ratio 0.9 (1.2-2.2); Alkaline Phosphatase 202 U/L (46-116); Anion Gap 9 (7-16); Aspartate Amino Transferase 11 U/L (0-34); BUN/Creatinine Ratio 19 Ratio (12-20); Bilirubin,Total 0.4 mg/dL (0.3-1.2); Blood Urea Nitrogen 13 mg/dL (9-23); Calcium 9.4 mg/dL (8.3-10.6); Calcium (Corrected) 9.7 mg/dL (8.5-10.1); Carbon Dioxide 29.2 mMol/L (20.0-31.0); Chloride 96 mMol/L (98-107); Creatinine (Component) 0.7 mg/dL (0.6-1.3); Estimated Creatinine Clearance 143.6 mL/min (>60); Globulin 3.8 gm/dL (2.3-3.5); Glucose 234 mg/dL (74-106); Magnesium 1.5 mg/dL (1.6-2.6); Osmolality,Calculated 276 (275-295); Phosphorous 2.7 mg/dL (2.4-5.1); Potassium 3.5 mMol/L (3.4-5.1); Sodium 134 mMol/L (136-145); Total Protein 7.4 gm/dL (5.7-8.2); eGFR > 60 See Note
[2024-06-27] MEDS: ENOXAPARIN SOD INJ 40 MG/0.4 ML SYRINGE SC (08:00)
[2024-06-27] MEDS: PANTOPRAZOLE INJ 40 MG VIAL IVP (09:15)
--- NOTE | 2024-06-27 09:22 | PC.NURSE ---
[facility] on 06/27/24 from 0100 to 0700.
[2024-06-27] MEDS: NIFEdipine XL 30 MG TABCR PO (09:24)
[2024-06-27] MEDS: FLUCONAZOLE 100 MG TABLET 400 MG PO (09:24)
[2024-06-27] MEDS: Magnesium Sulfate 4 GM Ivpb 4 GM/50 ML BAG IV (09:27)
[2024-06-27] MEDS: AMOXICILLIN/POT CLAV 875 TABLET 1 TAB PO (09:29)
[2024-06-27] MEDS: Lisinopril 20 MG TABLET PO (11:25)
[2024-06-27] MEDS: INSULIN LISPRO (AdmeLOG) 1 UNIT/0.01 ML UNIT 7 UNIT SC (11:39)
[2024-06-27] MEDS: INSULIN LISPRO (AdmeLOG) 1 UNIT/0.01 ML UNIT SC (11:42)
--- NOTE | 2024-06-27 13:20 | ESDS_ITS ---
<Statement entered by Garret Sanabria MD - 06/27/24 15:11> I saw and examined the patient, and I agree with current management stated by Dr Kailash MD,PGY1. Plan of care was discussed with the attending physician and resident physician. Disclaimer: Despite multiple revisions, due to the dictation software being used, the document bellow may not be free of grammatical errors including phonetic/typographic errors. However, this does not deter from our commitment to providing health care in the patient's best interest in mind. Dr. Martha MD, PGY 2 Planned Discharge Date 06/27/24 DS: Providers Provider Date of admission: 06/21/24 11:09 Primary care physician: Adrian Bean PA-C Admitting Provider: Raul Waterman MD Attending Provider on Admission: Raul Waterman MD Consults: 06/23/24 11:27 Referral Registered Dietitian Stat Comment: Intubated, pending recs 06/24/24 10:39 Consult to Infectious Diseases Routine Comment: Cocci, Bactremia Consulting Provider: Lorenzo Cordova 06/25/24 13:27 Referral Physical Therapy Routine Comment: Physician Instructions: Attending Provider on DC: Raul Waterman MD Discharging Provider: Steve Ridley MD DS: Diagnosis Problem List Completed Was Problem List Reviewed/Reconciled?: Yes Hospital Course Hospital Course Hospital course: 43 y/o F with PMHx significant for insulin-dependent diabetes, hypertension, peripheral neuropathy presented to ED with chief complaint of shortness of breath and fever x 2 days. Patient was in usual state of health till 2 days p rior to admission when she began developing shortness of breath with associated cough, mildly productive of sputum. During this time patient noted she had occasional fevers. Shortness of breath continued to worsen prompting visit to ED. Patient denied nausea, vomiting, chest pain, chills. On exam patient noted right shoulder/back pain, has been present for several days. Chest x-ray showed right basilar pneumonia. Patient given 1 L bolus normal saline, Vanco and Zosyn in the ED. Patient septic: Heart rate 130, respirations 25, WBC 26. Afebrile. The night of admission, patient became agitated and severely hypoxic, required intubation and upgrade to ICU. In the ICU, antibiotics were continued with Zosyn and vancomycin. Tested positive for blood cultures, 1 out of 2 bottles for H influenza. Tested positive for cocci, started on fluconazole IV. UA positive and urine culture showed ESBL. Patient continued on Zosyn, vancomycin discontinued. ID consulted given ESBL on urine culture and 1 out of 2 blood cultures showing H influenza. ID recommended p.o. Augmentin. Patient medically stable and cleared for discharge. Discharge plan: You have been started on the 4 medications: -Augmentin 875 twice daily for 7 days -Fluconazole 400 mg once daily for 3-month -Tresiba 30 units daily -Nifedipine 30 mg daily -Lisinopril has been increased to 20 mg daily You are being sent with order for AirPRe 3+ We have held your previous Tresiba and Basaglar prescription, follow-up with PCP before resuming Continue all other medications as previously prescribed Follow-up with your PCP in 1-2 weeks Return to the ED if you develop new or worsening symptoms, including shortness of breath or fevers Diagnoses: #Sepsis secondary to CAP, H. influenzae #Acute hypoxic respiratory failure #Bacteremia, H. influenzae #ESBL UTI #MARCELA, prerenal due to dehydration, resolved. #Meth abuse #Diabetes, insulin-dependent #Hypertension, patient history Plan of care discussed with senior resident Dr. Sanabria PGY?[address] Waterman. Steve Ridley MD PGY?1 Time Spent with Patient Time attestation: Total time spent providing and/or coordinating discharge services: Home Health Home Health Referral Orders: 06/27/24 09:49 Home Health Referral Routine Reason For Exam: PT Home-Bound The patient must either because of illness or injury, need the aid of supportive devices such as crutches, canes, wheelchairs, and walkers; the use of special transportation; or the assistance of another person in order to leave their place of residence; OR have a condition such that leaving his or her home is medically contraindicated. In addition, the patient also meets the following criteria: patient is normally unable to leave the home and leaving home requires considerable taxing effort. Addendum to Home Health Certification Practitioner's Certification: I certify that the patient has been under my care in the hospital and the care of attending physician (see below). We had a oxad-ti-gmcw encounter on (see date below). My clinical findings indicate that the patient is home bound per the above criteria and the Home Health Services noted in these orders are medically necessary. The primary reason for the hpor-ar-gtxz encounter is related to the fact that the patient requires home health services. 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 Wound Care: No IV Therapy: No RN Safety Evaluation: Yes RN to evaluate and create a plan of care that will produce positive outcomes. Palliative Treatment: No Palliative treatment and evaluate the need for hospice. Home Health Aide - Personal Care: No Home Health Aide to assist with any ADL's. Exam Vital Signs Temp Pulse Resp BP Pulse Ox O2 Del Method O2 Flow Rate 97.1 F 85 18 149/74 H 93 L Room Air 3 06/27/24 12:00 06/27/24 12:00 06/27/24 12:00 06/27/24 12:00 06/27/24 12:00 06/27/24 12:00 06/27/24 06:05 FiO2 30 06/26/24 04:00 Discharge Plan Plan Patient Disposition: HOME (Self Care) Patient condition on transfer: Stable Care Plan Goals: You have been started on the 4 medications: -Augmentin 875 twice daily for 7 days -Fluconazole 400 mg once daily for 3-month -Tresiba 30 units daily -Nifedipine 30 mg daily -Lisinopril has been increased to 20 mg daily You are being sent with order for AirPRe 3+ We have held your previous Tresiba and Basaglar prescription, follow-up with PCP before resuming Continue all other medications as previously prescribed Follow-up with your PCP in 1-2 weeks Return to the ED if you develop new or worsening symptoms, including shortness of breath or fevers Prescriptions/Referrals Prescriptions/Med Rec: New nifedipine 30 mg Tablet Extended Release 24hr 30 mg PO QDAY 30 Days Qty: 30 0RF lisinopril 20 mg Tablet 20 mg PO QDAY 30 Days Qty: 30 0RF fluconazole 200 mg tablet 400 mg PO QDAY 90 Days Qty: 180 0RF benzonatate 100 mg Capsule 100 mg PO Q8HR PRN (Reason: Cough) 30 Days Qty: 30 0RF amoxicillin-pot clavulanate 875-125 mg Tablet 1 tab PO BID 7 Days Qty: 14 0RF insulin degludec [Tresiba FlexTouch U-100] 100 unit/mL (3 mL) insulin pen 30 unit subcut QPM Qty: 15 0RF (DME) pen needle, diabetic [Ultra-Thin II Ins Pen [place]] 29 gauge x 1/2 needle See Rx Instructions .Route Qty: 100 0RF Rx Instructions: As directed (DME) lancets 30 gauge misc See Rx Instructions .Route Qty: 100 0RF Rx Instructions: As directed (DME) FreeStyle Raeann 3 Plus Sensor Device See Rx Instructions .Route Qty: 1 0RF Rx Instructions: As directed (DME) FreeStyle Raeann 3 [place] Misc See Rx Instructions .Route Qty: 1 0RF Rx Instructions: As directed insulin lispro 100 unit/mL insulin pen 10 unit subcut TIDWMEAL Qty: 15 0RF Continued (DME) Blood Glucose Test Strip See Rx Instructions .ROUTE .MEDSUPPLY Qty: 100 0RF Rx Instructions: As directed check BS 3 times a day (DME) lancets [BD Ultra-Fine II Lancets] 30 gauge misc See Rx Instructions .ROUTE .MEDSUPPLY Qty: 100 0RF Rx Instructions: As directed check BS 3 times a day (DME) pen needle, diabetic [Microdot Insulin Pen Needle] 31 gauge x 1/4 needle See Rx Instructions .ROUTE .MEDSUPPLY Qty: 50 0RF Rx Instructions: As directed pioglitazone 45 mg tablet 45 mg PO QDAY Patient Comments: TAKE 1 TABLET BY MOUTH EVERY DAY FOR 30 DAYS loratadine 10 mg tablet 10 mg PO QDAY Jardiance 25 mg tablet 25 mg PO QDAY Patient Comments: TAKE 1 TABLET BY MOUTH EVERY DAY FOR 90 DAYS (DME) blood-glucose meter [Blood Glucose Monitoring] Kit See Rx Instructions .ROUTE .MEDSUPPLY Qty: 1 1RF Rx Instructions: As directed check BS 3 times a day atorvastatin 20 mg tablet 20 mg PO QDAY Patient Comments: TAKE 1 TABLET BY MOUTH EVERY DAY Baqsimi 3 mg/actuation spray,non-aerosol 3 mg intranasal QDAY PRN (Reason: hypoglycemia) Qty: 2 0RF insulin lispro [Admelog SoloStar U-100 Insulin] 100 unit/mL insulin pen 40 unit subcut TID Qty: 15 2RF Discontinued insulin glargine [Basaglar KwikPen U-100 Insulin] 100 unit/mL (3 mL) insulin pen See Rx Instructions .ROUTE .COMPLEX Rx Instructions: pt own sliding scale insulin degludec [Tresiba FlexTouch U-100] 100 unit/mL (3 mL) insulin pen 120 unit subcut HS Qty: 15 3RF Referrals: Adrian Bean PA-C [Primary Care Provider] - Patient/Caregiver Discharge Instructions Education Materials: CGM, Diabetes and Heart Disease, Losing Weight for Heart Health, Long-Term Complications of Diabetes, Managing Type 2 Diabetes, Managing Your Glucose Level for ..., Addiction Ask These Questions, Addiction: Your Treatment Options, Managing Stress When You Have Diabetes, Insulin Injection Steps Print Language: Venezuelan Stand Alone Forms: Jacqueline Award Info., Patient Portal Info Letter Discharge Order Discharge Orders: Discharge (Routine); Ordered 06/27/24 Ordered By: Garret Sanabria Quality Discharge Quality Measures VTE prophylaxis MD Attestestation MD Attestation I have examined the patient, reviewed labs and imaging findings, discussed the case with the resident(s), and reviewed entered orders. I agree with the plan of care as outlined in this note. Dr. Waterman
--- NOTE | 2024-06-27 13:47 | PC.CC ---
IMELDA approved for [employer] Raeann 3 Plus sensor and [employer] Raeann 3 [place] until 06/27/25. S/W Stacia @ [facility] who reported they have not been receiving the 3 Plus sensors from their supplier, [employer]. Will call back tomorrow to confirm availability.
--- NOTE | 2024-06-28 12:18 | PC.CC ---
Confirmed with [employer] that they received [employer] Raeann 3 Plus sensors from their supplier today.
--- NOTE | 2024-06-28 13:35 | PC.CC ---
Complete Home Health packet sent out via [employer] fax, awaiting responses at this time.
--- NOTE | 2024-06-29 10:42 | PC.CC ---
[facility] accepted the pt and it was booked by [facility] transfer nurse. Start of care date is 06/30/24.
== END 2024-06-27 13:10 | disposition home or self-care (01) | DRG 720 ==
LOC: SERX 11:18 → SERHOLD 11:32 → S2NX 15:03 → S2SX 20:50 → S2NX 06-25 17:37
PROVIDERS: Internal Medicine Infectious Disease; Student in an Organized Health Care Education/Training Program; Admitting Provider Student in an Organized Health Care Education/Training Program; Emergency Provider Emergency Medicine; PCP Family Medicine; Visit Provider Student in an Organized Health Care Education/Training Program
DX: A41.3 Sepsis due to Hemophilus influenzae (principal); E66.01 Morbid (severe) obesity due to excess calories; Z68.43 Body mass index [BMI] 50.0-59.9, adult; E11.42 Type 2 diabetes mellitus with diabetic polyneuropathy; J96.01 Acute respiratory failure with hypoxia; J18.9 Pneumonia, unspecified organism; E86.0 Dehydration; N17.9 Acute kidney failure, unspecified; J96.02 Acute respiratory failure with hypercapnia; I10 Essential (primary) hypertension; E78.5 Hyperlipidemia, unspecified; E87.20 Acidosis, unspecified; F12.10 Cannabis abuse, uncomplicated; E83.42 Hypomagnesemia; F40.240 Claustrophobia; B96.20 Unspecified Escherichia coli [E. coli] as the cause of diseases classified elsewhere; D64.9 Anemia, unspecified; F15.23 Other stimulant dependence with withdrawal; N39.0 Urinary tract infection, site not specified; Z16.12 Extended spectrum beta lactamase (ESBL) resistance; K74.60 Unspecified cirrhosis of liver; R16.0 Hepatomegaly, not elsewhere classified; K80.20 Calculus of gallbladder without cholecystitis without obstruction; I95.2 Hypotension due to drugs; T42.75XA Adverse effect of unspecified antiepileptic and sedative-hypnotic drugs, initial encounter; F17.200 Nicotine dependence, unspecified, uncomplicated; Z91.199 Patient's noncompliance with other medical treatment and regimen due to unspecified reason; Z79.4 Long term (current) use of insulin; Z89.512 Acquired absence of left leg below knee; Z97.14 Presence of artificial left leg (complete) (partial); Z78.1 Physical restraint status; Y92.230 Patient room in hospital as the place of occurrence of the external cause; Z79.84 Long term (current) use of oral hypoglycemic drugs; Z79.899 Other long term (current) drug therapy
CPT/HCPCS: 36415; 36600; 71045; 71275; 80053; 80061; 80202; 80307; 81001; 81025; 82803; 83036; 83605; 83735; 83880; 84100; 84145; 84443; 84478; 84484; 84702; 85025; 85610; 85730; 86635; 86703; 86803; 87040; 87077; 87081; 87086; 87184; 87186; 87205; 87400; 87811; 93005; 93306; 94002; 94003; 94640; 94660; 94664; 94667; 96374; 97162; 99285; A4649; A9270; J1450; J1630; J1643; J1650; J1815; J1940; J2060; J2270; J2405; J2470; J2543; J2704; J3010; J3370; J3371; J3475; J3490; J7030; J7040; J7120; Q9967

== ENCOUNTER → 2025-05-15 | Outpatient (CLI) | payer MEDICAID, SELFPAY | END | disposition home or self-care (01) | PROVIDERS: PCP Family Medicine; Referring Provider Family Medicine; Visit Provider Student in an Organized Health Care Education/Training Program | DX: I87.311 Chronic venous hypertension (idiopathic) with ulcer of right lower extremity (principal); E11.621 Type 2 diabetes mellitus with foot ulcer; L97.812 Non-pressure chronic ulcer of other part of right lower leg with fat layer exposed; L97.412 Non-pressure chronic ulcer of right heel and midfoot with fat layer exposed; Z79.4 Long term (current) use of insulin; M14.671 Charcot's joint, right ankle and foot; Z89.512 Acquired absence of left leg below knee; Z99.3 Dependence on wheelchair | CPT/HCPCS: 97597; 99212; A9270; G0463 ==

== ENCOUNTER → 2025-05-22 | Outpatient (CLI) | payer MEDICAID, SELFPAY | END | disposition home or self-care (01) | LOC: SWHD 15:35 | PROVIDERS: PCP Physician Assistant Medical; Referring Provider Physician Assistant Medical; Visit Provider Surgery | DX: I87.311 Chronic venous hypertension (idiopathic) with ulcer of right lower extremity (principal); E11.621 Type 2 diabetes mellitus with foot ulcer; L97.812 Non-pressure chronic ulcer of other part of right lower leg with fat layer exposed; L97.412 Non-pressure chronic ulcer of right heel and midfoot with fat layer exposed; Z79.4 Long term (current) use of insulin; M14.671 Charcot's joint, right ankle and foot; Z89.512 Acquired absence of left leg below knee; Z99.3 Dependence on wheelchair | CPT/HCPCS: 11042; A9270 ==

== ENCOUNTER → 2025-05-29 | Outpatient (CLI) | payer MEDICAID, SELFPAY | END | disposition home or self-care (01) | LOC: SWHD 14:45 | PROVIDERS: PCP Physician Assistant Medical; Referring Provider Physician Assistant Medical; Visit Provider Student in an Organized Health Care Education/Training Program | DX: I87.311 Chronic venous hypertension (idiopathic) with ulcer of right lower extremity (principal); E11.621 Type 2 diabetes mellitus with foot ulcer; L97.812 Non-pressure chronic ulcer of other part of right lower leg with fat layer exposed; L97.412 Non-pressure chronic ulcer of right heel and midfoot with fat layer exposed; Z79.4 Long term (current) use of insulin; M14.671 Charcot's joint, right ankle and foot; Z89.512 Acquired absence of left leg below knee; Z99.3 Dependence on wheelchair | CPT/HCPCS: 97597; A9270 ==